=== PATIENT | male | born 1990 | race Caucasian/White ===

== ENCOUNTER 2021-01-22 13:07 | Inpatient (IN) | payer MEDICAID, SELFPAY ==
[~2021-01-22] VITALS: Ht 170.2 cm; Wt 47.6 kg
[2021-01-22 13:07] VITALS: BP_SYST 114
--- NOTE | 2021-01-22 13:24 | NUR ---
DR CARLTON IN TO ASSESS
--- NOTE | 2021-01-22 13:29 | NUR ---
BIB EMT FROM [facility] FOR TACHYCARDIA . 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 TRACH BLOW BY AT 2 LITERS. DIAPHORETIC, DIAPER.
[2021-01-22] MEDS ORDERED: PIPERACILLIN/TAZO 3.375 GM in NS 50 ML IV ONE (13:30)
[2021-01-22] MEDS ORDERED: IBUPROFEN 800 MG TABLET PO ONE (13:30)
[2021-01-22] MEDS ORDERED: NACL 0.9% 1,000 ML IV ONE ×2 (13:30→14:45)
--- NOTE | 2021-01-22 14:00 | NUR ---
ER at bedside examining patient.
[2021-01-22 14:04] LABS: BASOPHILS # (AUTO) 0.1 K/uL (0.0-0.2); BASOPHILS % (AUTO) 0.2 % (0.0-2.0); MONOCYTES # (AUTO) 1.6 K/uL (0.0-1.0); MONOCYTES % (AUTO) 3.6 % (1.7-9.3)
[2021-01-22] MEDS ORDERED: PIPERACILLIN/TAZOBACTAM 3.375 GM/VIAL (ZOSYN) IV ONE ×2 (14:05→23:56)
[2021-01-22 14:10] LABS: HEMATOCRIT 41.9 % (36-54); HEMOGLOBIN 14.1 g/dL (14.0-18.0); LYMPHOCYTES # (AUTO) 0.9 K/uL (1.0-5.5); LYMPHOCYTES % (AUTO) 2.1 % (20.5-51.5); MEAN CORPUSCULAR HEMOGLOBIN 31 pg (27-31); MEAN CORPUSCULAR HGB CONC 34 % (32-36); MEAN CORPUSCULAR VOLUME 91 fL (79.0-98.0); NEUTROPHILS # (AUTO) 41.5 K/uL (1.8-7.7); PLATELET COUNT (AUTO) 653 K/uL (130-430); RED BLOOD CELL COUNT(AUTO) 4.59 MIL/uL (4.2-6.2); RED CELL DISTRIBUTION WIDTH 17.1 % (9.0-15.0)
--- NOTE | 2021-01-22 14:17 | NUR ---
LABS AND CXR COMPLETED. UA OBTAINED, TOLERATED WELL. ST ON MONITOR NORMOTENSIVE
[2021-01-22 14:18] LABS: CALCIUM 8.7 mg/dL (8.4-11.0); CREATININE 0.52 mg/dL (0.55-1.30); POTASSIUM 4.3 mmol/L (3.5-5.1)
[2021-01-22 14:25] LABS: INR 1.5 (0.80-1.20); PROTHROMBIN TIME 15.4 SECS (9.5-12.5)
[2021-01-22 14:31] LABS: WHITE BLOOD COUNT (AUTO) 44.1 K/uL (4.8-10.8)
[2021-01-22 14:32] LABS: ALBUMIN 2.2 g/dL (3.4-4.8)
[2021-01-22] MEDS ORDERED: VANCOMYCIN HCL 1,000 MG in NS 250 ML IV ONE (14:45)
[2021-01-22 14:58] LABS: BILIRUBIN,URINE 1+ (NEGATIVE); BLOOD, URINE 3+ (NEGATIVE); CLARITY/URINE CLEAR (CLEAR); COLOR,URINE YELLOW (YELLOW); GLUCOSE,URINE NEGATIVE (NEGATIVE); KETONES,URINE TRACE (NEGATIVE); LEUKOCYTE ESTERASE ,URINE NEGATIVE (NEGATIVE); NITRITE, URINE NEGATIVE (NEGATIVE); PH,URINE 5.5 (5.0-8.0); PROTEIN URINE TRACE (NEGATIVE)
[2021-01-22] MEDS ORDERED: VANCOMYCIN HCL 1000 MG/VIAL IV ONE (15:03)
--- NOTE | 2021-01-22 15:20 | NUR ---
CONSENT FOR CT WITH CONTRAST FROM RADHA TAI
[2021-01-22 15:24] LABS: BACTERIA,URINE None Seen /HPF (None Seen); RBC,URINE 20-50 /HPF (0-3); WBC,URINE 0-3 /HPF (0-3)
--- NOTE | 2021-01-22 15:48 | NUR ---
[facility]
[2021-01-22 15:57] LABS: NEUTROPHILS % (AUTO) 94.1 % (40.0-70.0)
--- NOTE | 2021-01-22 17:42 | NUR ---
REPOSITIONED FOR COMFORT, PT CALM, RESP UNLABORED,
[2021-01-22] MEDS ORDERED: LOVI30 SQ (18:06)
[2021-01-22] MEDS ORDERED: ASPI-1155 PO (18:06)
[2021-01-22] MEDS ORDERED: FER300L PO (18:06)
[2021-01-22] MEDS ORDERED: ZINC50TA69 PO (18:06)
[2021-01-22] MEDS ORDERED: BISA5TAB10 PO (18:06)
[2021-01-22] MEDS ORDERED: ALBU2.5V7 INH (18:06)
[2021-01-22] MEDS ORDERED: MULT-1089 PO (18:06)
[2021-01-22] MEDS ORDERED: ASCO500T20 PO (18:06)
[2021-01-22] MEDS ORDERED: ACETAMINOPHEN 650 MG/20.3 ML UDC PO ONE (18:45)
[2021-01-22] MEDS ORDERED: MORPHINE 4 MG INJ. 4 MG/ML VIAL IVP PRN (18:45)
[2021-01-22] MEDS ORDERED: LORazepam 2 MG/ML VIAL IVP PRN (18:45)
[2021-01-22] MEDS ORDERED: ALBUTEROL SULFATE 0.083% 2.5 MG/3 ML VIAL.NEB INH PRN (18:45)
[2021-01-22] MEDS ORDERED: MORPHINE 2 MG/ML INJ. SYRINGE IVP PRN (18:45)
[2021-01-22] MEDS ORDERED: IPRATROPIUM BROM 0.5 MG/2.5 ML VIAL.NEB (ATROVENT) INH PRN (18:45)
[2021-01-22 19:07] LABS: PHOSPHORUS 4.2 mg/dL (2.7-4.5)
--- NOTE | 2021-01-22 19:08 | NUR ---
LT LYING REPOSITIONED, MEDICATED WITH TYLENOL ORDERED
[2021-01-22] MEDS: PIPERACILLIN/TAZO 3.375/DEX-IS 50 ML IV SCH (20:47)
[2021-01-22] MEDS: NACL 0.9% 1,000 ML IV SCH (20:47)
--- NOTE | 2021-01-22 21:01 | NUR ---
Patient is going to telemetry room 122 A
--- NOTE | 2021-01-22 22:03 | NUR ---
ADMIT NOTE patient non verbal , with a Trach size 7 . Respirations Regular also unlabored on 02 3 LPM suction up right position with thick white sputum , tolerated MULTIPLE OPEN SKIN AREAS are noted New ORDERS OBTAINED FROM DR TONIO REYES procedures explained / .
[2021-01-22 23:54] VITALS: BP_SYST 115
[2021-01-23 00:25] VITALS: BP_SYST 121
[2021-01-23] MEDS: PIPERACILLIN/TAZO 3.375/DEX-IS 50 ML IV SCH ×4 (00:48→17:52)
--- NOTE | 2021-01-23 01:14 | NUR ---
Pictures & Measurements of wounds implemented , photos put in medical Record .
[2021-01-23 01:53] VITALS: BP_SYST 117
--- NOTE | 2021-01-23 04:00 | NUR ---
Called Dr. Escalera [facility] For consultation: Covid-19, pulmonary abscess
--- NOTE | 2021-01-23 07:07 | NUR ---
Nutrition Update Ceferino Scale 11 noted. Pt admitted for Pulmonary Abscess /COVID Diet: [facility] BMI: 16.5 kg/m2 RD to follow per nutrition care standards.
[2021-01-23 07:38] LABS: HEMATOCRIT 34.5 % (36-54); HEMOGLOBIN 11.3 g/dL (14.0-18.0); MEAN CORPUSCULAR HEMOGLOBIN 30 pg (27-31); MEAN CORPUSCULAR HGB CONC 33 % (32-36); MEAN CORPUSCULAR VOLUME 92 fL (79.0-98.0); PLATELET COUNT (AUTO) 496 K/uL (130-430); RED BLOOD CELL COUNT(AUTO) 3.73 MIL/uL (4.2-6.2); RED CELL DISTRIBUTION WIDTH 16.9 % (9.0-15.0)
--- NOTE | 2021-01-23 07:45 | NUR ---
NOTE DR KILPATRICK ON THE FLOOR - ASSESSMENT DONE AND ORDERS WRITTEN
[2021-01-23 08:00] VITALS: BP_SYST 117
[2021-01-23] MEDS ORDERED: VANCOMYCIN HCL 750 MG in NS 250 ML IV SCH (08:00)
[2021-01-23 08:05] LABS: CALCIUM 8.8 mg/dL (8.4-11.0); CREATININE 0.44 mg/dL (0.55-1.30); POTASSIUM 3.7 mmol/L (3.5-5.1)
--- NOTE | 2021-01-23 08:35 | NUR ---
NOTE DR HODGES (PUL) WAS ON THE FLOOR AND ASSESSED PT AND ORDERS WRITTEN.
[2021-01-23 08:57] LABS: WHITE BLOOD COUNT (AUTO) 44.1 K/uL (4.8-10.8)
[2021-01-23] MEDS: ASCORBIC ACID 500 MG TABLET PO SCH (09:45)
[2021-01-23] MEDS: DECADRON 4 MG TABLET PO SCH (09:45)
[2021-01-23] MEDS: CHOLECALCIFEROL (VITAMIN D3) 2,000 UNIT TABLET PO SCH (09:45)
--- NOTE | 2021-01-23 09:47 | NUR ---
Pee Garcia notified of (+) Covid [id number] requested PCR covid test. Notified RN to obtain PCR covid test for the patient
[2021-01-23] MEDS: ENOXAPARIN SODIUM 40 MG/0.4 ML SYRINGE SUBCUT SCH (09:48)
[2021-01-23] MEDS: VANCOMYCIN HCL 750 MG in NS 250 ML IV SCH ×2 (09:48→22:35)
[2021-01-23 10:04] LABS: C-REACTIVE PROTEIN QUANT 40.4 mg/dL (0-0.5)
--- NOTE | 2021-01-23 11:40 | NUR ---
NOTE DR DUVAL CALLED AND UPDATE ON PT'S STATUS GIVEN.
[2021-01-23 11:41] LABS: BAND % (MANUAL) 15 % (0-6); BASOPHILS % (MANUAL) 0 % (0-2); EOSINOPHILS % (MANUAL) 0 % (0-7); LYMPHOCYTES % (MANUAL) 4 % (20-46); MONOCYTES % (MANUAL) 4 % (0-11)
[2021-01-23 12:00] VITALS: BP_SYST 116
--- NOTE | 2021-01-23 12:30 | NUR ---
Note Covid - PCR specimen was drawn and sent to lab for processing at this time.
--- NOTE | 2021-01-23 14:15 | NUR ---
NOTE US THORACENTESIS WAS CANCELLED AND US CHEST WAS ORDERED BY DR HODGES.
[2021-01-23 16:29] VITALS: BP_SYST 114
--- NOTE | 2021-01-23 18:50 | NUR ---
Note Pt was checked on q1' and PRN all shift for needs and care. Pt's bed in low position and bed alarm on all shift. pt's trach intact and oxygenating pt well. Pt's IV in left forearm and right forearm intact and patent, IVF's infusing well all shift. [place]amilla catheter intact and draining. Pt maintained with safety and isolation precautions all shift. Call light within reach. Pt near nurses' station for close observation.
[2021-01-23] MEDS ORDERED: VANCOMYCIN HCL 750 MG/NS 250 ML IV SCH (19:02)
--- NOTE | 2021-01-23 19:20 | NUR ---
RECEIVED SBAR REPORT FROM OFF COMING RN FOR CONTINUITY OF CARE. PT LAYING IN BED WITH EYES CLOSED. PT HAS A CHRONIC TRACH WITH 4 L O2. PURIFICATION DIRECTOR IN PLACE, TACHYCARDIA. IVF INFUSING. HALEY CATHETER IN PLACE AND DRAINING TO GRAVITY.
[2021-01-23] MEDS: NACL 0.9% 1,000 ML IV SCH (19:30)
--- NOTE | 2021-01-23 20:15 | NUR ---
PT OPENS EYES TO PAINFUL STIMULI AND WITHDRAWS TO PAIN. PT HAS A TRACH WITH 4L O2. MAINTAINING O2 SATURATIONS ABOVE 90%. DRY NON-PRODUCTIVE COUGH OBSERVED. PROVIDED PO AND TRACH CARE, PT TOLERATED WELL. G-TUBE IN PLACE, CLAMPED. IVF INFUSING. HALEY CATHETER IN PLACE AND DRAINING TO GRAVITY. TURNED AND REPOSITIONED, TOLERATED WELL. BED LOCKED AND IN LOWEST POSITION. SAFETY PRECAUTIONS IN PLACE.
--- NOTE | 2021-01-24 00:30 | NUR ---
PT CONTINUES TO BE ON 4 L VIA TRACH. PT HAS EYES CLOSED, NO S/S OF DISTRESS NOTED. TURNED AND REPOSITIONED, TOLERATED WELL. SAFETY PRECAUTIONS IN PLACE.
[2021-01-24] MEDS: PIPERACILLIN/TAZO 3.375/DEX-IS 50 ML IV SCH ×4 (00:51→17:24)
[2021-01-24 01:23] VITALS: BP_SYST 120
[2021-01-24 07:03] LABS: HEMATOCRIT 34.5 % (36-54); HEMOGLOBIN 10.9 g/dL (14.0-18.0); LYMPHOCYTES # (AUTO) 0.8 K/uL (1.0-5.5); LYMPHOCYTES % (AUTO) 1.9 % (20.5-51.5); MEAN CORPUSCULAR HEMOGLOBIN 30 pg (27-31); MEAN CORPUSCULAR HGB CONC 32 % (32-36); MEAN CORPUSCULAR VOLUME 94 fL (79.0-98.0); MONOCYTES # (AUTO) 1.8 K/uL (0.0-1.0); NEUTROPHILS # (AUTO) 41.4 K/uL (1.8-7.7); NEUTROPHILS % (AUTO) 94.1 % (40.0-70.0); PLATELET COUNT (AUTO) 484 K/uL (130-430); RED BLOOD CELL COUNT(AUTO) 3.69 MIL/uL (4.2-6.2); RED CELL DISTRIBUTION WIDTH 16.9 % (9.0-15.0)
[2021-01-24 07:21] LABS: CALCIUM 8.8 mg/dL (8.4-11.0); CREATININE 0.39 mg/dL (0.55-1.30); POTASSIUM 3.2 mmol/L (3.5-5.1)
--- NOTE | 2021-01-24 07:27 | NUR ---
ENDORSED SBAR REPORT TO ONCOMING RN FOR CONTINUITY OF CARE.
[2021-01-24 08:39] LABS: ERYTHROCYTE SEDIMENTATION RATE 96 MM/HR (0-15)
[2021-01-24 09:00] VITALS: BP_SYST 150
--- NOTE | 2021-01-24 09:05 | NUR ---
CONSULTATION PAGED/CALLED Reason for Consultation: LUNG ABCESS Person Who was Notified: MISSY Consulting Physician: PAMELA GARZA Director Software Quality Assurance Specialty: Ordering Physician: FINESSE
[2021-01-24 09:26] LABS: C-REACTIVE PROTEIN QUANT 31.7 mg/dL (0-0.5)
[2021-01-24] MEDS: VANCOMYCIN HCL 750 MG in NS 250 ML IV SCH (09:52)
[2021-01-24] MEDS: ASCORBIC ACID 500 MG TABLET PO SCH (09:53)
[2021-01-24] MEDS: CHOLECALCIFEROL (VITAMIN D3) 2,000 UNIT TABLET PO SCH (09:53)
[2021-01-24] MEDS: DECADRON 4 MG TABLET PO SCH (09:53)
[2021-01-24] MEDS: ENOXAPARIN SODIUM 40 MG/0.4 ML SYRINGE SUBCUT SCH (09:54)
--- NOTE | 2021-01-24 10:11 | NUR ---
INFORMED US ROGE THAT PATIENT'S HEART RATE WAS 144 SHE WILL INFORM CARLIN HERNANDEZ
[2021-01-24 12:00] VITALS: BP_SYST 117
--- NOTE | 2021-01-24 14:49 | NUR ---
Note Pt's HR tends to go high when he has congestion above 100. Once pt suctioned - HR goes below [address] Campbell came to see pt at 09am - orders written. Calls (4) made to [employer] since 09am for GT feedings to be started. No answer. Received call from Komal - surgical corsetier at 1400, she will order GT feedings.
[2021-01-24 16:00] VITALS: BP_SYST 118
--- NOTE | 2021-01-24 17:10 | NUR ---
NOTE Komal (conference services director) called and recommended Glucerna 1.2 at 50cc/hr and water flush q6' 100cc. GT feeding to be brought to floor with dinner trays. Order was entered per Dr Campbell's request.
--- NOTE | 2021-01-24 17:45 | NUR ---
Dietitian Recommendations * Recommend Glucerna 1.2 at 50ml/hr (goal rate) , Free water flush: 100ml/Q6hrs via GT Provides: 1440kcal, /day, 72g protein/day, 966ml free water/day Meets: 86% of caloric needs and 116% of upper end of protein needs. Please refer to to Nutrition Assessment for details. CN,RD
--- NOTE | 2021-01-24 18:30 | NUR ---
PAGED PAGED DOCTOR MILTON FOR DOCTOR KAYLA
--- NOTE | 2021-01-24 18:40 | NUR ---
NOTE Dr Hal Parsons on the floor and after assessing pt called and spoke to Dr Sol. Pt was checked on q1' and PRN all shift for needs and care. Pt's bed in low position and bed alarm on. Pt near nurses station for close observation. Pt maintained with safety and isolation precautions all shift. Call light within reach.
[2021-01-24] MEDS: NACL 0.9% 1,000 ML IV SCH (18:45)
--- NOTE | 2021-01-24 19:30 | NUR ---
OPENING NOTE RECEIVED SBAR REPORT FROM DAY SHIFT RN FOR CONTINUITY OF CARE. PT LAYING IN BED WITH EYES CLOSED. PT HAS A CHRONIC TRACH WITH 6 L O2. GREENS OR GROUNDS SUPERINTENDENT IN PLACE. SAFETY AND ASPIRATION PRECAUTIONS ARE IN PLACE. IVF INFUSING. HALEY CATHETER IN PLACE AND DRAINING TO GRAVITY. WILL MONITOR.
--- NOTE | 2021-01-24 19:56 | NUR ---
PAGED DR. DUVAL TO REPORT CRITICAL LAB OF MRSA NARES POSITIVE
[2021-01-24 20:00] VITALS: BP_SYST 143
--- NOTE | 2021-01-24 20:30 | NUR ---
INCREASED O2 VIA TRACH TO 10 L. PT SUCTIONED AND IS SATTING AT 94% AT THIS TIME. WILL MONITOR.
[2021-01-24] MEDS: LINEZOLID 300 ML IV SCH (22:27)
[2021-01-25] MEDS: PIPERACILLIN/TAZO 3.375/DEX-IS 50 ML IV SCH ×5 (02:29→23:34)
[2021-01-25 02:34] VITALS: BP_SYST 150
--- NOTE | 2021-01-25 06:00 | NUR ---
DECREASED O2 TO 8L VIA TRACH. PT TOLERATING WELL AND IS SATTING AT 96%. PT SUCTIONED. WILL MONITOR.
--- NOTE | 2021-01-25 07:07 | NUR ---
CLOSING NOTE PT LAYING IN BED WITH EYES CLOSED. PT HAS A CHRONIC TRACH WITH 8 L O2. PROTECTIVE SERVICE SPECIALIST IN PLACE. SAFETY AND ASPIRATION PRECAUTIONS ARE IN PLACE. IVF INFUSING. HALEY CATHETER IN PLACE AND DRAINING TO GRAVITY. WILL MONITOR UNTIL CARE IS ENDORSED TO DAY SHIFT RN.
[2021-01-25 08:00] VITALS: BP_SYST 128
[2021-01-25] MEDS ORDERED: MUPIROCIN 1 GM OIN.PF.APP NS SCH (09:00)
[2021-01-25] MEDS: LINEZOLID 300 ML IV SCH ×2 (09:13→20:07)
[2021-01-25] MEDS: DECADRON 4 MG TABLET PO SCH (09:13)
[2021-01-25] MEDS: CHOLECALCIFEROL (VITAMIN D3) 2,000 UNIT TABLET PO SCH (09:13)
[2021-01-25] MEDS: ASCORBIC ACID 500 MG TABLET PO SCH (09:13)
[2021-01-25] MEDS: MUPIROCIN 2% TOPICAL OINTMENT 22 GM TP SCH ×2 (09:14→20:07)
[2021-01-25] MEDS: ENOXAPARIN SODIUM 40 MG/0.4 ML SYRINGE SUBCUT SCH (09:14)
[2021-01-25 09:20] LABS: BASOPHILS # (AUTO) 0.1 K/uL (0.0-0.2); BASOPHILS % (AUTO) 0.3 % (0.0-2.0); HEMATOCRIT 30.9 % (36-54); LYMPHOCYTES # (AUTO) 0.8 K/uL (1.0-5.5); LYMPHOCYTES % (AUTO) 2.4 % (20.5-51.5); MEAN CORPUSCULAR HEMOGLOBIN 30 pg (27-31); MEAN CORPUSCULAR HGB CONC 32 % (32-36); MEAN CORPUSCULAR VOLUME 92 fL (79.0-98.0); MONOCYTES # (AUTO) 1.1 K/uL (0.0-1.0); MONOCYTES % (AUTO) 3.1 % (1.7-9.3); NEUTROPHILS # (AUTO) 33.8 K/uL (1.8-7.7); NEUTROPHILS % (AUTO) 94.2 % (40.0-70.0); PLATELET COUNT (AUTO) 420 K/uL (130-430); RED BLOOD CELL COUNT(AUTO) 3.35 MIL/uL (4.2-6.2); RED CELL DISTRIBUTION WIDTH 16.7 % (9.0-15.0)
[2021-01-25 09:26] LABS: CALCIUM 8.3 mg/dL (8.4-11.0); CREATININE 0.4 mg/dL (0.55-1.30); POTASSIUM 3.1 mmol/L (3.5-5.1)
[2021-01-25 09:58] LABS: C-REACTIVE PROTEIN QUANT 19.6 mg/dL (0-0.5)
[2021-01-25 10:10] LABS: WHITE BLOOD COUNT (AUTO) 35.9 K/uL (4.8-10.8)
[2021-01-25 10:12] LABS: ERYTHROCYTE SEDIMENTATION RATE 106 MM/HR (0-15)
[2021-01-25] MEDS ORDERED: LIDOCAINE 1%, 20 ML MDV 20 ML ONE (10:35)
[2021-01-25] MEDS ORDERED: MIDAZOLAM HCL 5 MG/5 ML VIAL ONE (10:55)
[2021-01-25 12:00] VITALS: BP_SYST 135
[2021-01-25 16:00] VITALS: BP_SYST 130
[2021-01-25] MEDS: NACL 0.9% 1,000 ML IV SCH (18:52)
[2021-01-25 20:00] VITALS: BP_SYST 125
--- NOTE | 2021-01-25 22:00 | NUR ---
ROUNDING NOTES Patient resting in bed - no s/s pain or distress noted. Respirations even and unlabored - head of bed elevated. IV site patent - no s/s redness, infection, or infiltration. Bed locked and in lowest position. Call light within reach - bed alarm on.
[2021-01-26 00:57] VITALS: BP_SYST 128
[2021-01-26] MEDS: PIPERACILLIN/TAZO 3.375/DEX-IS 50 ML IV SCH ×3 (05:15→17:55)
[2021-01-26 06:40] LABS: BASOPHILS % (AUTO) 0.2 % (0.0-2.0); HEMATOCRIT 30.9 % (36-54); HEMOGLOBIN 10.1 g/dL (14.0-18.0); LYMPHOCYTES # (AUTO) 0.8 K/uL (1.0-5.5); MEAN CORPUSCULAR HEMOGLOBIN 30 pg (27-31); MEAN CORPUSCULAR HGB CONC 33 % (32-36); MEAN CORPUSCULAR VOLUME 92 fL (79.0-98.0); MONOCYTES # (AUTO) 0.8 K/uL (0.0-1.0); MONOCYTES % (AUTO) 3.1 % (1.7-9.3); NEUTROPHILS # (AUTO) 24.5 K/uL (1.8-7.7); PLATELET COUNT (AUTO) 438 K/uL (130-430); RED BLOOD CELL COUNT(AUTO) 3.37 MIL/uL (4.2-6.2); RED CELL DISTRIBUTION WIDTH 16.5 % (9.0-15.0); WHITE BLOOD COUNT (AUTO) 26.2 K/uL (4.8-10.8)
[2021-01-26 07:20] LABS: CALCIUM 8.5 mg/dL (8.4-11.0); CREATININE 0.33 mg/dL (0.55-1.30)
[2021-01-26 08:02] LABS: NEUTROPHILS % (AUTO) 93.7 % (40.0-70.0)
[2021-01-26 08:42] LABS: C-REACTIVE PROTEIN QUANT 14.5 mg/dL (0-0.5)
[2021-01-26 10:58] LABS: ERYTHROCYTE SEDIMENTATION RATE 104 MM/HR (0-15)
[2021-01-26 11:26] VITALS: BP_SYST 137
[2021-01-26] MEDS: ASCORBIC ACID 500 MG TABLET PO SCH (12:41)
[2021-01-26] MEDS: CHOLECALCIFEROL (VITAMIN D3) 2,000 UNIT TABLET PO SCH (12:41)
[2021-01-26] MEDS: ENOXAPARIN SODIUM 40 MG/0.4 ML SYRINGE SUBCUT SCH (12:42)
[2021-01-26] MEDS: MUPIROCIN 2% TOPICAL OINTMENT 22 GM TP SCH ×2 (12:45→20:10)
[2021-01-26] MEDS: LINEZOLID 300 ML IV SCH ×2 (13:40→20:10)
[2021-01-26 15:36] VITALS: BP_SYST 125
[2021-01-26] MEDS: NACL 0.9% 1,000 ML IV SCH (17:55)
[2021-01-26 20:00] VITALS: BP_SYST 123
[2021-01-27 00:06] VITALS: BP_SYST 118
[2021-01-27] MEDS: PIPERACILLIN/TAZO 3.375/DEX-IS 50 ML IV SCH ×4 (01:08→17:06)
--- NOTE | 2021-01-27 06:36 | NUR ---
OPENING NOTE RECEIVED SBAR REPORT FROM DAY SHIFT RN FOR CONTINUITY OF CARE. PT LAYING IN BED WITH EYES CLOSED. PT HAS A CHRONIC TRACH WITH 4 L O2, SATTING WELL. CHILD CARE SUPERVISOR IN PLACE. SAFETY AND ASPIRATION PRECAUTIONS ARE IN PLACE. IVF INFUSING. HALEY CATHETER IN PLACE AND DRAINING TO GRAVITY. CHEST TUBE IN PLACE AND TO SUCTION. WILL MONITOR. Addendum: 01/27/21 at 0659 by Jackie Cai RN TONY: TIME WAS 1929, DATE WAS 01/26/21
--- NOTE | 2021-01-27 06:37 | NUR ---
CLOSING NOTE PT LAYING IN BED WITH EYES CLOSED. PT HAS A CHRONIC TRACH WITH 4 L O2, SATTING WELL. FOOD COUNTER ATTENDANT IN PLACE. SAFETY AND ASPIRATION PRECAUTIONS ARE IN PLACE. IVF INFUSING. HALEY CATHETER IN PLACE AND DRAINING TO GRAVITY. CHEST TUBE IN PLACE AND TO SUCTION. ALL NEEDS MET. WILL MONITOR UNTIL PT CARE IS ENDORSED TO DAY SHIFT RN.
[2021-01-27 07:01] LABS: EOSINOPHILS % (AUTO) 0.2 % (0.0-4.0); HEMOGLOBIN 9.8 g/dL (14.0-18.0); LYMPHOCYTES % (AUTO) 5.1 % (20.5-51.5); MEAN CORPUSCULAR HEMOGLOBIN 30 pg (27-31); MEAN CORPUSCULAR HGB CONC 33 % (32-36); MEAN CORPUSCULAR VOLUME 93 fL (79.0-98.0); MONOCYTES # (AUTO) 0.7 K/uL (0.0-1.0); MONOCYTES % (AUTO) 3.4 % (1.7-9.3); NEUTROPHILS # (AUTO) 18.1 K/uL (1.8-7.7); NEUTROPHILS % (AUTO) 91.3 % (40.0-70.0); PLATELET COUNT (AUTO) 416 K/uL (130-430); RED BLOOD CELL COUNT(AUTO) 3.24 MIL/uL (4.2-6.2); RED CELL DISTRIBUTION WIDTH 17.1 % (9.0-15.0); WHITE BLOOD COUNT (AUTO) 19.9 K/uL (4.8-10.8)
[2021-01-27 07:48] LABS: CALCIUM 8.3 mg/dL (8.4-11.0); CREATININE 0.31 mg/dL (0.55-1.30); POTASSIUM 3.4 mmol/L (3.5-5.1)
[2021-01-27 08:00] VITALS: BP_SYST 128; BP_SYST 156
[2021-01-27] MEDS ORDERED: ALTEPLASE 2 MG VIAL MC ONE (08:30)
--- NOTE | 2021-01-27 09:00 | NUR ---
DR HODGES WAS HERE AND SEEN PT. INJECT CATHFLOW TO PT'S CHEST TUBE AND ORDERED TO UNCLAMP IT AFTER 2 HOURS.
[2021-01-27] MEDS: CHOLECALCIFEROL (VITAMIN D3) 2,000 UNIT TABLET PO SCH (09:26)
[2021-01-27] MEDS: ASCORBIC ACID 500 MG TABLET PO SCH (09:26)
[2021-01-27] MEDS: LINEZOLID 300 ML IV SCH ×2 (09:27→21:50)
[2021-01-27] MEDS: ENOXAPARIN SODIUM 40 MG/0.4 ML SYRINGE SUBCUT SCH (09:28)
[2021-01-27] MEDS: MUPIROCIN 2% TOPICAL OINTMENT 22 GM TP SCH ×2 (09:35→21:53)
[2021-01-27 09:37] LABS: C-REACTIVE PROTEIN QUANT 16.3 mg/dL (0-0.5)
[2021-01-27 10:31] LABS: ERYTHROCYTE SEDIMENTATION RATE 110 MM/HR (0-15)
--- NOTE | 2021-01-27 11:00 | NUR ---
UNCLAMED CHEST TUBE ORDERED BY DR HODGES. Addendum: 01/27/21 at 1822 by Raffaele Youngblood RN CORRECTION "UNCLAMPED"
[2021-01-27 11:26] VITALS: BP_SYST 117
[2021-01-27 15:35] VITALS: BP_SYST 120
--- NOTE | 2021-01-27 15:45 | NUR ---
WOUND EVALUATION: Late note for 1544 secondary to patient care. Wound Consult received from Dr. Duran. Thank you, Dr. Duran, for the consult. Patient received in a [place] Bed with a mattress, awake, alert, and oriented. Patient is unable to turn independently. Ceferino Score is an 11. Past Medical History: Chronic Respiratory Failure, Dysphagia, COVID Pneumonia, Sepsis, suicide attempt, Traumatic Brain Injury, tube feeding, history of lung abscess. Admitted with Pneumonia. Recent Labs: WBC 19.9, RBC 3.24, hemoglobin 9.8, hematocrit 30.0, ESR 110, potassium 3.4, BUN 7, creatinine 0.31, GFR 363, glucose 142, calcium 8.3, C-reactive protein 16.3, D-dimer 2760, albumin 2.2. Microbiology: Blood culture results x2 in progress. Urine culture results negative. MRSA screen results positive. Intrinsic factors that delay wound healing: Chronic Respiratory Failure, Dysphagia, COVID Pneumonia, Sepsis, Hypoalbuminemia. Extrinsic factors that delay wound healing: Immobility. Wound Assessment: 1. Right Sacral area: Three small areas of dark purple ecchymosis in a near vertical linear fashion. No odor, no drainage. 2. Right Upper Sacral area: Small scab, wound was present on admission. No odor, no drainage. 3. Right Lower Sacral area: Small scab, wound was present on admission. No odor, no drainage. 4. Left Sacral area: Wound, present on admission. Site now has 100% pink scar tissue. 5. Left Buttock area: Wound, present on admission. Site now has 100% pink scar tissue. Recommend: Cleanse involved areas with mild soap and water. Gently pat dry. Apply Hydraguard barrier cream to involved areas. Cover sites with Sacral foam dressing. Perform site care daily, and as needed for dressing soiling or dislodgment. 6. Right Anterior Lateral Shoulder: Wound of unknown origin, present on admission. Wound bed has 5% dark discoloration, 10% pink tissue, 5% yellow tissue, 80% red tissue. No odor, no drainage. Periwound intact. Wound measures 5.0 cm x 4.0 cm. Recommend: Cleanse wound with normal saline. Apply moisture barrier cream to periwound. Apply Venelex ointment to wound bed. Cover with foam dressing. Perform wound care daily, and as needed for dressing soiling or dislodgment. 7. Right Lateral Head: Wound and unknown origin, present on admission. Wound bed has 100% red tissue. No odor, no drainage. Dry, stable. Recommend: Cleanse involved area with normal saline. Pat dry. Cover site with foam dressing. Perform site care daily, and as needed for dressing soiling or dislodgment. 8. Anterior/Medial Bridge of Nose: Wound, present on admission. Wound has 100% black scab. No odor, no drainage. Periwound intact. Dry, stable. Recommend: No dressing needed. Continue to monitor site every shift. Recommend reposition patient side to side only every 2 hours with pillow support. Elevate, off-load and float bilateral heels with pillows. Offload pressure areas with pillows for pressure re-distribution. Perform skin care and monitor skin integrity Q shift. Use moisture barrier cream on moisture susceptible areas QID and PRN for soiling. Maintain patient on a low air-loss mattress. Also recommend: Place pillow underneath patient's sacral-coccygeal area in a horizontal fashion. Reposition patient side to side only every 2 hours by placing 1 pillow underneath left side for 2 hours, then switching pillow to underneath right side every 2 hours Off-load pressure areas with pillows for pressure re-distribution. Offload, elevate and float bilateral heels with one pillow lengthwise under each extremity at all times (ensure that heels float). Perform skin care and monitor skin integrity Q shift. Use moisture barrier cream on buttocks and other moisture susceptible areas QID and as needed for soiling. Maintain patient on a low air-loss mattress.
--- NOTE | 2021-01-27 18:22 | NUR ---
PT HAS BEEN STABLE THE WHOLE SHIFT, TURNED AND REPOSITIONED Q2 HOURS, PT SUCTION VIA TRACH PRN. WOUND CARE NURSE SAW PT. IV ACCESS INTACT AND PATENT. DR CHET AVILA'D ISOLATION. WILL ENDORSE TO NIGHT NURSE.
--- NOTE | 2021-01-27 19:30 | NUR ---
OPENING NOTE PATIENT IS NON VERBAL RESPONDS TO TACTILE STIMULE OPENS EYES. PATIENT IS ON A TRACH T BAR NO SIGNS OF PAIN OR DISTRESS. GTUBE PATENT AND INTACT ON ABDOMEN. IV SITE PATENT AND INTACT LFA AND RW. PATIENT IS ON ISOLATION FOR MRSA OF NARES. BREATHING WITH OXYGEN VIA N/C AT 4 LPM. HALEY CATHETER PATENT AND INTACT SECURED TO LEG. CHEST TUBE PATENT AND INTACT. BED IS LOW AND CALL LIGHTS IN REACH.
[2021-01-27 20:00] VITALS: BP_SYST 158
[2021-01-27] MEDS: NACL 0.9% 1,000 ML IV SCH (21:52)
[2021-01-28] VITALS: BP_SYST 117
--- NOTE | 2021-01-28 | NUR ---
PATIENT IS ASLEEP COMFORTABLE NO SIGNS OF PAIN OR DISTRESS. BED IS LOW AND CALL LIGHT IS WITHIN REACH.
[2021-01-28] MEDS: PIPERACILLIN/TAZO 3.375/DEX-IS 50 ML IV SCH ×4 (01:06→18:14)
--- NOTE | 2021-01-28 04:00 | NUR ---
PATIENT IS ASLEEP COMFORTABLE NO SIGNS OF PAIN OR DISTRESS. BED IS LOW AND CALL LIGHT IN REACH.
--- NOTE | 2021-01-28 06:21 | NUR ---
CLOSING NOTE PATIENT IS COMFORTABLE NO SIGNS OF DISTRESS OR PAIN. TRACH PATENT AND INTACT. CHEST TUBE PATENT AND INTACT. G-TUBE PATENT AND INTACT. HALEY PATENT AND INTACT. BED IS LOW AND CALL LIGHT IS IN REACH.
[2021-01-28 08:00] VITALS: BP_SYST 122
[2021-01-28 09:41] LABS: BASOPHILS % (AUTO) 0.2 % (0.0-2.0); EOSINOPHILS # (AUTO) 0.1 K/uL (0.0-0.4); EOSINOPHILS % (AUTO) 0.7 % (0.0-4.0); HEMOGLOBIN 10.7 g/dL (14.0-18.0); LYMPHOCYTES % (AUTO) 5.1 % (20.5-51.5); MEAN CORPUSCULAR HEMOGLOBIN 30 pg (27-31); MEAN CORPUSCULAR HGB CONC 32 % (32-36); MEAN CORPUSCULAR VOLUME 93 fL (79.0-98.0); MONOCYTES # (AUTO) 0.9 K/uL (0.0-1.0); MONOCYTES % (AUTO) 4.4 % (1.7-9.3); NEUTROPHILS # (AUTO) 18.4 K/uL (1.8-7.7); NEUTROPHILS % (AUTO) 89.6 % (40.0-70.0); PLATELET COUNT (AUTO) 482 K/uL (130-430); RED BLOOD CELL COUNT(AUTO) 3.55 MIL/uL (4.2-6.2); RED CELL DISTRIBUTION WIDTH 17.1 % (9.0-15.0); WHITE BLOOD COUNT (AUTO) 20.5 K/uL (4.8-10.8)
[2021-01-28 10:01] LABS: CALCIUM 8.3 mg/dL (8.4-11.0); CREATININE 0.39 mg/dL (0.55-1.30)
[2021-01-28] MEDS: LINEZOLID 300 ML IV SCH ×2 (10:01→21:49)
[2021-01-28] MEDS: CHOLECALCIFEROL (VITAMIN D3) 2,000 UNIT TABLET PO SCH (10:02)
[2021-01-28] MEDS: ASCORBIC ACID 500 MG TABLET PO SCH (10:02)
[2021-01-28] MEDS: BALSAM PERU/CASTOR OIL 60 GM OINT...G. TP SCH (10:03)
[2021-01-28] MEDS: ENOXAPARIN SODIUM 40 MG/0.4 ML SYRINGE SUBCUT SCH (10:03)
[2021-01-28] MEDS: MUPIROCIN 2% TOPICAL OINTMENT 22 GM TP SCH ×2 (10:03→22:20)
[2021-01-28 10:31] LABS: C-REACTIVE PROTEIN QUANT 11.3 mg/dL (0-0.5)
[2021-01-28 10:45] LABS: ERYTHROCYTE SEDIMENTATION RATE 91 MM/HR (0-15)
[2021-01-28 12:00] VITALS: BP_SYST 118
[2021-01-28] MEDS ORDERED: ALTEPLASE 2 MG VIAL MC ONE (13:30)
[2021-01-28 14:44] VITALS: BP_SYST 109
[2021-01-28 16:00] VITALS: BP_SYST 112
--- NOTE | 2021-01-28 16:00 | NUR ---
pt rec'd ativase via chest tube by physician and chest tube was clamped and unclamped within two hours as ordered and 30ml was sent to lab for culture per physician no acute distress noted pt maverick procedure well
[2021-01-28 17:27] LABS: APPEARANCE,SPUN,BODY FLUID HAZY (CLEAR); BF APPEARANCE UNSPUN BLOODY (CLEAR); BODY FLUID COLOR DARK YELLOW (LT YELLOW); BODY FLUID SOURCE/ TYPE OTHER
[2021-01-28 17:28] LABS: BODY FLUID TOTAL VOLUME 20 mL
[2021-01-28 17:29] LABS: LYMPHOCYTES, BODY FLUID 6 %; NEUTROPHIL, BODY FLUID 94 %; RBC, BODY FLUID 6775 /uL; WBC, BODY FLUID 21450 /uL
[2021-01-28 17:32] LABS: SOURCE/TYPE ,BODY FLUID OTHER
[2021-01-28] MEDS: NACL 0.9% 1,000 ML IV SCH (18:15)
--- NOTE | 2021-01-28 19:20 | NUR ---
CHANGE OF SHIFT; endorsed by day shift. pt. with trach to T bar @ 4 liters O2. pt. unable to use call light. on contact isolation for MRSA nares.
--- NOTE | 2021-01-28 20:05 | NUR ---
NOTES: pt. eyes closed. on trach via T bar. IVF infusing via left forearm, with splint on left arm/hand. foot drop on both feet. on crdiac monitor and shows sinu rhythm. g tube feed with Glucerna. chest tube on left side more toward the back with serous sanguineous drainage. O2 sat 100%. both legs elevated and both heels, on air mattress. noted bruising on rt. hip. pt. skinny.
[2021-01-28 21:00] VITALS: BP_SYST 125
--- NOTE | 2021-01-28 22:30 | NUR ---
NOTES: pt. medication given. suctioned orally and via trach. HOB elevated.
[2021-01-29 00:30] VITALS: BP_SYST 115
--- NOTE | 2021-01-29 00:30 | NUR ---
NOTES: repositioned. VS rechecked. loyd cath to osd.
[2021-01-29] MEDS: PIPERACILLIN/TAZO 3.375/DEX-IS 50 ML IV SCH ×4 (00:53→17:11)
--- NOTE | 2021-01-29 03:44 | NUR ---
NOTES: complete am care done. had a moderate amt. of pasty greenish brown stool/martha care done. sacral wound/buttocks dressing changed, cleanse with soap and water/pat dry and foam dressing applied. turn to sides. repositioned.pt.eyes open non verbal. observed contact isolation for MRSA nares.
[2021-01-29] MEDS: NACL 0.9% 1,000 ML IV SCH (05:27)
--- NOTE | 2021-01-29 05:30 | NUR ---
NOTES; suctioned orally and via trach, oral care done. IVF continuous with IV antibiotic. H2O flushes via g tube.
[2021-01-29 06:26] LABS: BASOPHILS % (AUTO) 0.1 % (0.0-2.0); EOSINOPHILS # (AUTO) 0.2 K/uL (0.0-0.4); EOSINOPHILS % (AUTO) 1.3 % (0.0-4.0); HEMATOCRIT 34.1 % (36-54); LYMPHOCYTES # (AUTO) 1.2 K/uL (1.0-5.5); LYMPHOCYTES % (AUTO) 7.4 % (20.5-51.5); MEAN CORPUSCULAR HEMOGLOBIN 30 pg (27-31); MEAN CORPUSCULAR HGB CONC 32 % (32-36); MEAN CORPUSCULAR VOLUME 92 fL (79.0-98.0); MONOCYTES % (AUTO) 5.8 % (1.7-9.3); NEUTROPHILS # (AUTO) 14.1 K/uL (1.8-7.7); NEUTROPHILS % (AUTO) 85.4 % (40.0-70.0); PLATELET COUNT (AUTO) 532 K/uL (130-430); RED CELL DISTRIBUTION WIDTH 17.1 % (9.0-15.0); WHITE BLOOD COUNT (AUTO) 16.5 K/uL (4.8-10.8)
--- NOTE | 2021-01-29 06:30 | NUR ---
CLOSING NOTES; pt. dad called and updated on pt. status.suctioned via trach and orally. g tube feeding continuous. site clean. loyd intact. IVF continuous. observed contact isolation for MRSA Nares. for further care and assistance. will endorse to incoming shift.
[2021-01-29 06:45] LABS: CALCIUM 8.3 mg/dL (8.4-11.0); CREATININE 0.29 mg/dL (0.55-1.30)
--- NOTE | 2021-01-29 06:57 | NUR ---
NOTES: changed atrium drainage at 20 cm suction. checked for patency. chest x ray was done earlier at bedside.
--- NOTE | 2021-01-29 07:30 | NUR ---
Opening Notes Patient is laying in bed, alert and oriented x1. Flat affect, obtunded. Arousable to deep stimuli/shaking. Pt remains on TBAR @ 4 LPM, tolerating well. Suction as needed. Mild SOB at rest. Suction as needed. Chest tube noted on left lower posterior, chest tube bubbling and draining, serous fluid noted. IV site on left FA 20 gauge intact at this time. NS @ 40 cc/hr, infusing well. GTUBE site intact, dressing clean and dry. Glucerna 1.2 @ 50 cc/hr, infusing well at this time. HOB @ 30 degrees. FC draining by gravity, shraddha colored urine noted. Pt remains on bedrest. Repositioned with pillows. All needs met at this time. Safety and fall precautions in place. Bed in lowest position, alarm on, locked. Will continue to monitor.
[2021-01-29 08:00] VITALS: BP_SYST 116
[2021-01-29] MEDS: LINEZOLID 300 ML IV SCH ×2 (08:16→20:32)
[2021-01-29] MEDS: ASCORBIC ACID 500 MG TABLET PO SCH (08:17)
[2021-01-29] MEDS: CHOLECALCIFEROL (VITAMIN D3) 2,000 UNIT TABLET PO SCH (08:17)
[2021-01-29] MEDS: MUPIROCIN 2% TOPICAL OINTMENT 22 GM TP SCH ×2 (08:20→20:33)
[2021-01-29] MEDS: BALSAM PERU/CASTOR OIL 60 GM OINT...G. TP SCH (08:20)
[2021-01-29] MEDS: ENOXAPARIN SODIUM 40 MG/0.4 ML SYRINGE SUBCUT SCH (08:34)
--- NOTE | 2021-01-29 10:00 | NUR ---
Notes Patient was repositioned in bed with pillows. Pt remains on TBAR @ 4 LPM, tolerating well at this time. Mild SOB while at rest. Suctioned trach x1, thick phlegm noted. Pt shows no signs of pain at this time. Will continue to monitor.
[2021-01-29 10:23] LABS: ERYTHROCYTE SEDIMENTATION RATE 87 MM/HR (0-15)
--- NOTE | 2021-01-29 10:30 | NUR ---
Nutrition F/U RD reviewed pt's current EMR record including diet Hx, physician notes, nursing notes, pertinent labs/meds/procedures, care trends, and care activity. Admission Dx: Pulmonary Abscess/COVID PMH: chronic respiratory failure. s/p feeding tube. Pt was also found w/ sepsis secondary to left lung abscess, COVID-19 infection with aspiration pneumonia, hyponatremia, moderate malnutrition, chronic respiratory failure, dysphagia, traumatic brain injury. SARS-CoV-2 Ag (Rapid) Positive 01/22 & (PCR) Negative 01/23 Current Diet Order/Nutrition Support: Glucerna 1.2 at 50 ml/hr, Free Water Flush: 100 6' via GT x3 days Subjective Info: RD rounded to unit yesterday, 01/28 and spoke w/ pt's primary RN. She reported that pt is tolerating TF. Pt is under isolation precautions -- RD bedside visit was deferred. Per EMR review today, TF Rate: 50 ml 01/28; GRV: 0 ml 01/28; TF Intakes: 500 ml 01/29; abd is soft and non-distended w/ active bowel sounds 01/28; last BM x2 01/26; Ceferino scale: 11 -- per Panman note 01/27 -- multiple wounds were noted -- please refer to wound note for details. Pertinent Medications: VIT C, VIT D, lovenox Pertinent Labs: WBC 16.5 H, Na 137 WNL, CRE 0.29 L, BG 136 H, BUN 6 L Height (Feet) 5 feet Height (Inches) 7.00 inches Weight (Pounds) 105 pounds Weight (Calculated Kilograms) 47.458308 kilograms Patient Weight 47.627 kg Body Mass Index 16.44 kg/m2 %IBW 71 [place]/Adjusted Body Weight 148 Recent Weight Change No Weight Status Underweight NEW Estimated Energy Expenditure (kcals/day) 2407-8840 kcal/day (30-35 kcal/kg CBW d/t malnutrition, wound healing) NEW Estimated Protein Required (g/day) 58-72 gm/day (1.2-1.5 gm/kg CBW d/t malnutrition, wound healing) Estimated Fluid Required (l/day) 1.4-1.7 ml/day (1ml/kcal/day for maintenance) Problem/Etiology/Signs/Symptoms *MODIFIED* Increase calories and Protein intake R/T Moderate protein calorie malnutrition and dysphagia AEB BMI: 16.5kg/m2, multiple wounds, and is on enteral feeding . *ongoing Expected Outcomes/Goals - Monitor advancement of tube feeding rate and tolerance w/ goal of pt meeting at least 80% of estimated nutritional needs, labs trending WNL, normal GI function, and skin integrity/wt maintenance Dietitian Recommendations * Recommend Glucerna 1.2 at 50 ml/hr (goal rate), Lucho BID, Free water flush: 100ml/Q6hrs via GT Provides: 1600 kcal/day, 72 gm protein/day, 1366 ml free water/day Meets: 95% of upper end of estimated caloric needs and 100% of upper end of estimated protein needs Follow Up High Risk: F/U in 2-3 days
--- NOTE | 2021-01-29 10:39 | NUR ---
Dietitian Recommendations * Recommend Glucerna 1.2 at 50 ml/hr (goal rate), Lucho BID, Free water flush: 100ml/Q6hrs via GT Provides: 1600 kcal/day, 72 gm protein/day, 1366 ml free water/day Meets: 95% of upper end of estimated caloric needs and 100% of upper end of estimated protein needs LP, RD Please refer to Nutrition F/U for details.
[2021-01-29 11:23] LABS: C-REACTIVE PROTEIN QUANT 9.8 mg/dL (0-0.5)
[2021-01-29 12:00] VITALS: BP_SYST 116
--- NOTE | 2021-01-29 12:00 | NUR ---
Patient is laying in bed, resting at this time. Pt remains on TBAR @ 4 LPM, tolerating well. Suctioned patient x2, noted with thick, white phlegm. Continuous pulse ox monitoring. Pt shows no signs of pain at this time. Patient was given a parital bed bath, pericare provided. FC emptied out, 500 cc of shraddha colored urine. All needs met. Will continue to monitor.
--- NOTE | 2021-01-29 12:02 | NUR ---
Patient is being seen and examined by DR HODGES
--- NOTE | 2021-01-29 14:00 | NUR ---
Notes Patient is laying in bed, alert and oriented x0. Repositioned with pillows. Pt remains on TBAR, @ 4 LPM, tolerating well. Pt shows no signs of pain based on FLACC scale. Oral care performed. Will continue to monitor.
[2021-01-29 16:00] VITALS: BP_SYST 103
--- NOTE | 2021-01-29 16:00 | NUR ---
Notes Patient is sleeping at this time. Mild SOB at this time. No signs of pain at this time. Will continue to monitor.
--- NOTE | 2021-01-29 18:29 | NUR ---
Closing Notes Patient is laying in bed, alert and oriented x0. Obtunded, flat affect. Mild SOB at rest. Pt remains on TBAR @ 4 LPM, tolerating well. Continuous pulse ox monitoring, noted at 98%. Suction as needed. IV site on left FA 22 gauge intact at this time. IV ATB infusing well at this time. NS @ 40 cc/hr, as ordered. FC draining by gravity, shraddha colored urine noted. GTUBE site on right lower abdomen. Tubefeed: Glucerna 1.2 @ 50 cc/hr, infusing well. Pt remains on contact isolation for MRSA of the nares. US Chest being performed by bedside. All needs met at this time. Safety and fall precautions in place. Bed in lowest position, alarm on, locked. Will continue to monitor.
--- NOTE | 2021-01-29 18:54 | NUR ---
CHEST TUBE OUTPUT (AM SHIFT): 115 CC
--- NOTE | 2021-01-29 19:25 | NUR ---
CHANGE OF SHIFT; endorsed by day shift. on trach via T bar. on contact isolation for MRSA nares. no distress. pt. unable to use call light, bed alarm on.
--- NOTE | 2021-01-29 19:36 | NUR ---
CALLED DR. TRACIE CHAKRABORTY BAG MACHINE ADJUSTER I SPOKE WITH MELANIE
--- NOTE | 2021-01-29 19:45 | NUR ---
DR. CHAKRABORTY CALLED BACK
[2021-01-29 21:00] VITALS: BP_SYST 110
--- NOTE | 2021-01-29 21:00 | NUR ---
NOTES: pt. checked, non verbal, flat affect. tach on T bar @ 4 liters O2. IVF infusing via left forearm. arm/hand splint on left side. g tube feed @ 50 cc/hr. site clean. loyd cath to osd. on teletypesetter monitor shows sinus rhythm borderline sinus tach. observed contact isolation for MRSA nares. suctioned orally and via trach. chest tube intact on left posterior chest area with serous sanguineous drain. Addendum: 01/30/21 at 0022 by Mamie Hoover RN Late entry called Dr. Sol , Dr. [place] intelligence operations specialist and relayed result of the US of the chest done today, no further order, will endorse in am for Dr. Sol.
--- NOTE | 2021-01-30 00:15 | NUR ---
NOTES: H2O flush given. cardiac pattern unchanged. suctioned via trach.
[2021-01-30 01:07] VITALS: BP_SYST 112
--- NOTE | 2021-01-30 03:35 | NUR ---
NOTES; wound care done on sacral area, changed dressing. repositioned.
--- NOTE | 2021-01-30 05:00 | NUR ---
NOTES: g tube dressing changed. flush g tube, slightly sluggish, noted left ear, always leans on left side. off pressure and applied z silvia.
--- NOTE | 2021-01-30 06:38 | NUR ---
CLOSING NOTS; for further care and observation. Trach to T bar @ 4 kiters O2. continnuous g tube feeding with Glucerna @ 50 cc/hr. IVF @ 4o cc/hr with NS. rach [facility] patent. bed alarm on. observe contact isolation for MRSA nares. pt. non verbal, opes eyes on stimulation. will endorse to incoming shift.
[2021-01-30 06:56] LABS: BASOPHILS % (AUTO) 0.3 % (0.0-2.0); EOSINOPHILS # (AUTO) 0.2 K/uL (0.0-0.4); EOSINOPHILS % (AUTO) 1.2 % (0.0-4.0); HEMATOCRIT 31.4 % (36-54); HEMOGLOBIN 10.2 g/dL (14.0-18.0); LYMPHOCYTES # (AUTO) 1.3 K/uL (1.0-5.5); LYMPHOCYTES % (AUTO) 9.4 % (20.5-51.5); MEAN CORPUSCULAR HEMOGLOBIN 30 pg (27-31); MEAN CORPUSCULAR HGB CONC 33 % (32-36); MEAN CORPUSCULAR VOLUME 92 fL (79.0-98.0); MONOCYTES # (AUTO) 0.7 K/uL (0.0-1.0); MONOCYTES % (AUTO) 5.4 % (1.7-9.3); NEUTROPHILS # (AUTO) 11.4 K/uL (1.8-7.7); NEUTROPHILS % (AUTO) 83.7 % (40.0-70.0); PLATELET COUNT (AUTO) 494 K/uL (130-430); RED BLOOD CELL COUNT(AUTO) 3.41 MIL/uL (4.2-6.2); RED CELL DISTRIBUTION WIDTH 16.8 % (9.0-15.0); WHITE BLOOD COUNT (AUTO) 13.6 K/uL (4.8-10.8)
[2021-01-30 07:31] LABS: ALBUMIN 1.4 g/dL (3.4-4.8); C-REACTIVE PROTEIN QUANT 5.8 mg/dL (0-0.5); CALCIUM 8.1 mg/dL (8.4-11.0); CREATININE 0.32 mg/dL (0.55-1.30); TOTAL BILIRUBIN 0.3 mg/dL (0.0-1.0)
--- NOTE | 2021-01-30 08:00 | NUR ---
OPENING NOTES AWAKE, NON-VERBAL. TRACH TO T-BAR ON 4 LITERS OF OXYGEN SUPPORT. NO SIGN OF PAIN. IV FLUID INFUSING WELL. ONGOING GTUBE FEEDING; WITH 3 ML BROWNISH RESIDUAL. CHEST TUBE IN PLACE DRAINING SMALL AMOUNT OF SEROSANGUINEOUS FLUID. HALEY CATHETER IN PLACE, DRAINING TRISTIN URINE. ORAL CARE DONE. REPOSITIONED. FALL AND SAFETY CHECKS DONE. WILL CLOSELY MONITOR.
[2021-01-30 08:04] VITALS: BP_SYST 116
[2021-01-30 08:36] LABS: ERYTHROCYTE SEDIMENTATION RATE 91 MM/HR (0-15)
[2021-01-30] MEDS: LINEZOLID 300 ML IV SCH ×2 (09:29→20:56)
[2021-01-30] MEDS: ENOXAPARIN SODIUM 40 MG/0.4 ML SYRINGE SUBCUT SCH (09:30)
[2021-01-30] MEDS: CHOLECALCIFEROL (VITAMIN D3) 2,000 UNIT TABLET PO SCH (09:31)
[2021-01-30] MEDS: ASCORBIC ACID 500 MG TABLET PO SCH (09:31)
[2021-01-30] MEDS: MUPIROCIN 2% TOPICAL OINTMENT 22 GM TP SCH ×2 (09:32→20:56)
[2021-01-30] MEDS: BALSAM PERU/CASTOR OIL 60 GM OINT...G. TP SCH (09:32)
--- NOTE | 2021-01-30 09:45 | NUR ---
MD ROUNDS, MED PASS AND WOUND CARE DR Amish SONI SAW PATIENT AT BEDSIDE. AWARE THAT CHEST TUBE WAS NOT DRAINING WELL. RE-ADJUSTED CONNECTION; DRAINAGE FLOW IMPROVED. DUE MEDS ADMINISTERED. WOUND CARE ON RIGHT SHOULDER DONE. SAFETY CHECKS DONE. WILL MONITOR.
[2021-01-30 11:31] VITALS: BP_SYST 129
--- NOTE | 2021-01-30 12:00 | NUR ---
REDNESS REDNESS NOTED ON LEFT EAR AND LEFT SHOULDER. APPLIED OPTIFOAM DRESSING TO PROTECT THE SKIN.
[2021-01-30] MEDS: PIPERACILLIN/TAZO 3.375/DEX-IS 50 ML IV SCH ×2 (12:49→18:33)
--- NOTE | 2021-01-30 14:05 | NUR ---
ROUNDS SUCTIONED TRACH. CHEST TUBE STILL DRAINING SEROSANGUINEOUS FLUIDS. SAFETY CHECKS DONE.
[2021-01-30 15:36] VITALS: BP_SYST 134
--- NOTE | 2021-01-30 15:44 | NUR ---
BOWEL MOVEMENT AND WOUND CARE CLEANED. WOUND DRESSINGS WERE SOILED; CHANGED. REPOSITIONED.
[2021-01-30] MEDS: NACL 0.9% 1,000 ML IV SCH (18:33)
--- NOTE | 2021-01-30 18:50 | NUR ---
CLOSING NOTES AWAKE, NONVERBAL. NO SIGN OF DISTRESS. TOLERATING TUBE FEEDING. HALEY CATHETER STILL IN PLACE. CHEST TUBE STILL DRAINING SEROSANGUINEOUS FLUID. ALL NEEDS MET THROUGHOUT SHIFT. FALL AND SAFETY CHECKS DONE. WILL ENDORSE TO NIGHT NURSE.
--- NOTE | 2021-01-30 19:30 | NUR ---
Opening note Received report from day shift. Pt is awake, nonverbal. No s/s of respiratory distress noted. IV site is intact and patent with fluids running at ordered rate. Escamilla catheter is intact and patent. Chest tube draining serosanguineous fluid. Tube feeding is running at ordered rate, tolerating well. Bed is locked in lowest position. Will continue to monitor
[2021-01-30 20:00] VITALS: BP_SYST 108
[2021-01-31] VITALS: BP_SYST 108
[2021-01-31] MEDS: PIPERACILLIN/TAZO 3.375/DEX-IS 50 ML IV SCH ×4 (00:15→19:38)
--- NOTE | 2021-01-31 00:15 | NUR ---
Rounds Pt sleeping. No s/s of respiratory distress. Chest tube and loyd still draining. Tube feeding running at ordered rate. Fall and safety checks in place. Will continue to monitor
--- NOTE | 2021-01-31 06:38 | NUR ---
Closing note Pt is awake.No s/s of respiratory distress noted. IV site is intact and patent with fluids running at ordered rate. Escamilla catheter is intact and patent. Chest tube draining serosanguineous fluid. Tube feeding is running at ordered rate, tolerating well. Bed is locked in lowest position. Will continue to monitor until endorsed to day shift
[2021-01-31 07:04] LABS: BASOPHILS # (AUTO) 0.1 K/uL (0.0-0.2); BASOPHILS % (AUTO) 0.4 % (0.0-2.0); EOSINOPHILS # (AUTO) 0.1 K/uL (0.0-0.4); EOSINOPHILS % (AUTO) 0.8 % (0.0-4.0); HEMATOCRIT 32.8 % (36-54); HEMOGLOBIN 10.8 g/dL (14.0-18.0); LYMPHOCYTES # (AUTO) 1.1 K/uL (1.0-5.5); LYMPHOCYTES % (AUTO) 7.6 % (20.5-51.5); MEAN CORPUSCULAR HEMOGLOBIN 30 pg (27-31); MEAN CORPUSCULAR HGB CONC 33 % (32-36); MEAN CORPUSCULAR VOLUME 92 fL (79.0-98.0); MONOCYTES # (AUTO) 0.8 K/uL (0.0-1.0); MONOCYTES % (AUTO) 5.4 % (1.7-9.3); NEUTROPHILS # (AUTO) 12.2 K/uL (1.8-7.7); NEUTROPHILS % (AUTO) 85.8 % (40.0-70.0); PLATELET COUNT (AUTO) 539 K/uL (130-430); RED BLOOD CELL COUNT(AUTO) 3.59 MIL/uL (4.2-6.2); WHITE BLOOD COUNT (AUTO) 14.2 K/uL (4.8-10.8)
[2021-01-31 07:18] LABS: CALCIUM 8.2 mg/dL (8.4-11.0); CREATININE 0.39 mg/dL (0.55-1.30); POTASSIUM 3.7 mmol/L (3.5-5.1)
--- NOTE | 2021-01-31 07:45 | NUR ---
OPENING NOTES AWAKE, NON-VERBAL, FLAT AFFECT. TRACH TO T-BAR ON 4 LITERS OF OXYGEN SUPPORT. NO SIGN OF PAIN. IV FLUID INFUSING WELL. SPLINT ON LEFT HAND. ONGOING G-TUBE FEEDING; MORE THAN 150ML RESIDUAL, HELD FEEDING. CHEST TUBE IN PLACE DRAINING MODERATE AMOUNT OF SEROSANGUINEOUS FLUID. HALEY CATHETER IN PLACE, DRAINING YELLOW URINE. ORAL CARE DONE. REPOSITIONED. FALL AND SAFETY CHECKS DONE. WILL CLOSELY MONITOR.
[2021-01-31 08:00] VITALS: BP_SYST 112
--- NOTE | 2021-01-31 08:45 | NUR ---
FEEDING HELD CHECKED RESIDUAL IS STILL MORE THAN 150ML. HELD FEEDING.
[2021-01-31] MEDS: ASCORBIC ACID 500 MG TABLET PO SCH (09:15)
[2021-01-31] MEDS: CHOLECALCIFEROL (VITAMIN D3) 2,000 UNIT TABLET PO SCH (09:15)
[2021-01-31] MEDS: LINEZOLID 300 ML IV SCH ×2 (09:15→20:51)
[2021-01-31] MEDS: MUPIROCIN 2% TOPICAL OINTMENT 22 GM TP SCH ×2 (09:16→20:52)
[2021-01-31] MEDS: BALSAM PERU/CASTOR OIL 60 GM OINT...G. TP SCH (09:16)
[2021-01-31] MEDS: ENOXAPARIN SODIUM 40 MG/0.4 ML SYRINGE SUBCUT SCH (09:17)
--- NOTE | 2021-01-31 10:00 | NUR ---
ROUNDS G-TUBE RESIDUAL STILL HIGH. HELD FEEDINGS. SAFETY CHECKS DONE.
--- NOTE | 2021-01-31 11:09 | NUR ---
WOUND CARE WOUND CARE DONE ON THE SACRAL AREA. TOLERATED WELL BY PATIENT. REPOSITIONED IN BED. SAFETY CHECKS DONE. WILL MONITOR.
--- NOTE | 2021-01-31 11:45 | NUR ---
RESUMED FEEDING RESIDUAL NOW AT 50ML. RESUMED FEEDING. ASPIRATION PRECAUTIONS IN PLACE. SAFETY CHECKS DONE. WILL MONITOR.
[2021-01-31 12:51] VITALS: BP_SYST 113
--- NOTE | 2021-01-31 14:00 | NUR ---
ROUNDS TOLERATING G-TUBE FEEDING. SAFETY CHECKS DONE. PATIENT HAD A SMALL BOWEL MOVEMENT, CLEANED AND REPOSITIONED.
--- NOTE | 2021-01-31 14:08 | NUR ---
CM note: late entry: faxed the [facility] referral to [facility], the case is denied dt not contracted with [facility].-- CARLIN Guillen for [facility] made aware.
--- NOTE | 2021-01-31 16:00 | NUR ---
ROUNDS TOLERATING TUBE FEEDING. IV STILL INFUSING WELL. CHEST TUBE DRAINING THICK SEROSANGUINEOUS FLUID IN MODERATE AMOUNT. HALEY IN PLACE. SAFETY CHECKS DONE. REPOSITIONED.
[2021-01-31 16:50] VITALS: BP_SYST 116
[2021-01-31] MEDS: NACL 0.9% 1,000 ML IV SCH (19:40)
[2021-01-31 20:00] VITALS: BP_SYST 120
--- NOTE | 2021-02-01 00:15 | NUR ---
Rounds Pt sleeping. No s/s of respiratory distress. Chest tube and loyd still draining. Tube feeding running at ordered rate, tolerating well. Fall and safety checks in place. Will continue to monitor
[2021-02-01] MEDS: PIPERACILLIN/TAZO 3.375/DEX-IS 50 ML IV SCH ×4 (00:19→17:27)
[2021-02-01 02:27] VITALS: BP_SYST 137
--- NOTE | 2021-02-01 06:30 | NUR ---
Closing note Pt is awake, nonverbal .No s/s of respiratory distress noted. IV site is intact and patent with fluids running at ordered rate. Escamilla catheter is intact and patent. Chest tube draining serosanguineous fluid. Tube feeding is running at ordered rate, tolerating well. Bed is locked in lowest position. All needs met throughout shift. Will continue to monitor until endorsed to day shift
[2021-02-01 06:46] LABS: BASOPHILS # (AUTO) 0.1 K/uL (0.0-0.2); BASOPHILS % (AUTO) 0.4 % (0.0-2.0); EOSINOPHILS # (AUTO) 0.1 K/uL (0.0-0.4); EOSINOPHILS % (AUTO) 0.9 % (0.0-4.0); HEMATOCRIT 34.1 % (36-54); HEMOGLOBIN 11.1 g/dL (14.0-18.0); LYMPHOCYTES # (AUTO) 1.2 K/uL (1.0-5.5); LYMPHOCYTES % (AUTO) 9.5 % (20.5-51.5); MEAN CORPUSCULAR HEMOGLOBIN 30 pg (27-31); MEAN CORPUSCULAR HGB CONC 33 % (32-36); MEAN CORPUSCULAR VOLUME 91 fL (79.0-98.0); MONOCYTES # (AUTO) 0.6 K/uL (0.0-1.0); MONOCYTES % (AUTO) 4.7 % (1.7-9.3); NEUTROPHILS # (AUTO) 10.7 K/uL (1.8-7.7); NEUTROPHILS % (AUTO) 84.5 % (40.0-70.0); PLATELET COUNT (AUTO) 566 K/uL (130-430); RED BLOOD CELL COUNT(AUTO) 3.76 MIL/uL (4.2-6.2); RED CELL DISTRIBUTION WIDTH 16.6 % (9.0-15.0); WHITE BLOOD COUNT (AUTO) 12.6 K/uL (4.8-10.8)
[2021-02-01 07:02] LABS: CALCIUM 8.3 mg/dL (8.4-11.0); CREATININE 0.29 mg/dL (0.55-1.30); POTASSIUM 3.9 mmol/L (3.5-5.1)
[2021-02-01 08:11] VITALS: BP_SYST 118
--- NOTE | 2021-02-01 08:13 | NUR ---
opening note patient found in bed and expresses no complaints of pain or discomfort.IV, loyd, gtube and chest are in tact and patent . safety , fall, respiration and aspiration precautions in place. bed in lowest position, rails are up, bed is locked and call light in reach. will continue to monitor.
[2021-02-01] MEDS: LINEZOLID 300 ML IV SCH ×2 (08:21→22:18)
[2021-02-01] MEDS: ASCORBIC ACID 500 MG TABLET PO SCH (09:18)
[2021-02-01] MEDS: CHOLECALCIFEROL (VITAMIN D3) 2,000 UNIT TABLET PO SCH (09:19)
[2021-02-01] MEDS: BALSAM PERU/CASTOR OIL 60 GM OINT...G. TP SCH (09:19)
[2021-02-01] MEDS: ENOXAPARIN SODIUM 40 MG/0.4 ML SYRINGE SUBCUT SCH (09:20)
--- NOTE | 2021-02-01 12:23 | NUR ---
nursing note patient resting in bed and expresses no complaints of pain or discomfort. Escamilla catheter was drained and gtube placement confirmed, no residual and was flushed with 100ml of water. patient was turned and chest and IV are in tact and working properly. will continue to monitor.
[2021-02-01 12:35] VITALS: BP_SYST 122
--- NOTE | 2021-02-01 14:34 | NUR ---
Nutrition F/U RD reviewed pt's current EMR record including diet Hx, physician notes, nursing notes, pertinent labs/meds/procedures, care trends, and care activity. Admission Dx: Pulmonary Abscess/COVID PMH: chronic respiratory failure. s/p feeding tube. Pt was also found w/ sepsis secondary to left lung abscess, COVID-19 infection with aspiration pneumonia, hyponatremia, moderate malnutrition, chronic respiratory failure, dysphagia, traumatic brain injury. SARS-CoV-2 Ag (Rapid) Positive 01/22 & (PCR) Negative 01/23 Current Diet Order/Nutrition Support: Glucerna 1.2 at 50 ml/hr, Free Water Flush: 100 q6H via GT x7 days Subjective Info: Pt is S/P Left sided pigtail cath placement on 01/25, CXR shows improvement in Left Pleural effusion. Per EMR review, pt is on t-bar to vent, BM 02/01 x1, abdomen is soft and nondistended, Ceferino scale: 12, pt was seen by healthcare science specialist on 01/27 and noted multiple wounds 01/27. EN rate: 50ml (01/31), GRV: 3ml (01/31). Pt w/ wounds and Lucho is warranted for wound healing. RD s/w pt's nurse Truman who reported no EN issues overnight and no GRV this morning. Pt is pending placement. Pertinent Medications: VIT C, VIT D, lovenox, Piperacillin/tazobactam, zinc Pertinent Labs: 02/01 WBC 12.6H, Na 137WNL, K 3.9WNL, BG 116H, BUN 7L, Cre 0.29L Height: 5 feet 7.00 inches Weight: 105 pounds/ 47.780217 kilograms (01/24) -stable Body Mass Index: 16.44 kg/m2 Estimated Energy Expenditure (kcals/day) 1095-8533 kcal/day (30-35 kcal/kg CBW d/t malnutrition, wound healing) Estimated Protein Required (g/day) 58-72 gm/day (1.2-1.5 gm/kg CBW d/t malnutrition, wound healing) Estimated Fluid Required (l/day) 1.4-1.7 ml/day (1ml/kcal/day for maintenance) Problem/Etiology/Signs/Symptoms *MODIFIED* Increase calories and Protein intake R/T Moderate protein calorie malnutrition and dysphagia AEB BMI: 16.5kg/m2, multiple wounds, and is on enteral feeding . *ongoing Expected Outcomes/Goals - Monitor EN intake and tolerance w/ goal of pt meeting at least 80% of estimated nutritional needs, labs trending WNL, normal GI function, and skin integrity/wt maintenance Dietitian Recommendations * Recommend Glucerna 1.2 at 50 ml/hr (goal rate), Lucho BID, Free water flush: 100ml/Q6hrs via GT Provides: 1600 kcal/day, 72 gm protein/day, 1366 ml free water/day Meets: 95% of upper end of estimated caloric needs and 107% of upper end of estimated protein needs Follow Up High Risk: F/U in 2-3 days
--- NOTE | 2021-02-01 14:38 | NUR ---
Dietitian Recommendations * Recommend Glucerna 1.2 at 50 ml/hr (goal rate), Lucho BID, Free water flush: 100ml/Q6hrs via GT Provides: 1600 kcal/day, 72 gm protein/day, 1366 ml free water/day Meets: 95% of upper end of estimated caloric needs and 107% of upper end of estimated protein needs Please see Nutrition F/U note for details PENITENTIARY, RD
[2021-02-01 15:53] VITALS: BP_SYST 146
[2021-02-01 19:00] VITALS: BP_SYST 145
--- NOTE | 2021-02-01 19:15 | NUR ---
change of shift.pt.presents isolation status:contact;mrsa;nares.pt.presents iv access location lt.antecubital iv fluids infusing. pt.presents trach o2 therapy via t-bar;rate;15l/min.02-sat%=98%.pt.presents loyd cath intact pt.presents g-tube g-tube feed infusing:glucerna:1.2;rate:50ml/hr.pt.presents chest tube location:lt.axillae.dsg intact.i have noted the chest tube drainage level @1500ml.call light/telephone w/in access of the pt. Addendum: 02/02/21 at 0206 by Morgan Bello RN pt.presents non-verbal speech status.pt.will trach nsg visually.pt.presents immobilizer lt.wrist/forearm.in place. lt.hand;pulse.temp,sensation assessed wnl.
--- NOTE | 2021-02-01 19:19 | NUR ---
CLOSING NOTE PATIENT IN BED AND EXPRESSES NO COMPLAINTS OF PAIN OR DISCOMFORT. FALL,RESPIRATORY, SAFETY AND ASPIRATIONS PRECAUTIONS IN PLACE. BED IS LOCKED AND IN LOWEST POSITION, THREE RAILS ARE UP AND CALL LIGHT IN REACH.IV, HALEY CATHETER, GTUBE AND CHEST TUBE ARE PATENT AND IN TACT. WILL ENDORSE TO RADIATION PROTECTION SPECIALIST.
[2021-02-01 20:00] VITALS: BP_SYST 145
--- NOTE | 2021-02-01 20:00 | NUR ---
pt.assessed.v/s assess values wnl.o2-sat%=98%.trach intact i have attended to the oral/trach care suction.g-tube intact g-tube feed infusing.iv access intact iv fluids infusing.chest tube intact note drainage.pt.assessed for cleanliness.pt.repositioned.call light/ telephone placed w/in access of the pt. Addendum: 02/02/21 at 0210 by Morgan Bello RN per flacc pain mgx pt.absent facial grimaces/body posturing.
[2021-02-01] MEDS: NACL 0.9% 1,000 ML IV SCH (21:00)
--- NOTE | 2021-02-01 21:00 | NUR ---
2100p medication administered.via the g-tube intact.flushed w/out resistance.per flacc pain mgx pt.absent facial grimaces/ body posturing.i have administered zyvox abx ivpb.call light/telephone placed w/in access of the pt.
--- NOTE | 2021-02-01 22:00 | NUR ---
pt.assessed.trach intact.i have attended to the oral/trach care suction.o2-sat%=98%.iv access intact iv fluids infusing. g-tube intact g-tube feed infusing.loyd cath intact urine content present.chest tube intact.pt.assessed for cleanliness pt.repositioned.call light/telephone pace w/in access of the pt.
--- NOTE | 2021-02-02 | NUR ---
pt.assessed.v/s assessed value wnl.trach intact.i have attended to the oral/trach care/suction.02-sat%=98%.iv access intact iv fluids infusing.i have administered zosyn abx midnight dose.g-tube intact g-tube feed infusing.loyd cath intact urine content present.chest tube intact. pt.assessed for cleanliness.pt.repositioned.per flacc pain mgx pt.absent facial grimaces/body posturing.call light/telephone placed w/in access of the pt.
[2021-02-02 00:20] VITALS: BP_SYST 124
--- NOTE | 2021-02-02 02:00 | NUR ---
pt.assessed.pr.presents quiescent affect.trach intact i have attended to the oral/trach care suction.iv access intact iv fluids infusing.g-tube intact g-tube feed infusing.loyd cath intact urine content present.chest tube intact.pt.assessed for cleanliness pt.repositioned.02-sat%=98%.call light/telephone placed w/in access of the pt.
--- NOTE | 2021-02-02 04:00 | NUR ---
pt.assessed.trach intact.i have attended to the oral/trach care/suction.iv access intact iv fluids infusing.g-tube intact t g-tube feed infusing. loyd cath intact urine content present.g-tube intact.per flacc pain mgx pt.absent facial grimaces/body posturing.pt.assessed for cleanliness.pt.repositioned.call light/telephone placed w/in access of the pt. Addendum: 02/02/21 at 0424 by Morgan Bello RN 02-sat%=98%.
[2021-02-02] MEDS: NACL 0.9% 1,000 ML IV SCH (04:35)
[2021-02-02] MEDS: PIPERACILLIN/TAZO 3.375/DEX-IS 50 ML IV SCH ×5 (05:03→23:34)
--- NOTE | 2021-02-02 06:10 | NUR ---
pt.assessed.trach intact.i have attended to the oral/trach care/suction.iv access intact iv fluids infusing.i have administered zosyn abx ivpb 0600a dose.i have changed the iv fluids bag.g-tube intact g-tube feed infusing.loyd cath intact urine content present.chest tube intact.pt.assessed for cleanliness.pt.cleaned/repositioned.i have attended to the dsg changes;wounds,g-tube,o2-sat%=98%call light/telephone placed w/in access of the pt. Addendum: 02/02/21 at 0624 by Morgan Bello RN per flacc pain mgx pt.absent facial grimaces/body posturing.
[2021-02-02 07:03] LABS: BASOPHILS # (AUTO) 0.1 K/uL (0.0-0.2); BASOPHILS % (AUTO) 0.5 % (0.0-2.0); EOSINOPHILS # (AUTO) 0.1 K/uL (0.0-0.4); EOSINOPHILS % (AUTO) 0.6 % (0.0-4.0); HEMATOCRIT 33.2 % (36-54); LYMPHOCYTES % (AUTO) 5.5 % (20.5-51.5); MEAN CORPUSCULAR HEMOGLOBIN 30 pg (27-31); MEAN CORPUSCULAR HGB CONC 33 % (32-36); MEAN CORPUSCULAR VOLUME 91 fL (79.0-98.0); MONOCYTES # (AUTO) 0.8 K/uL (0.0-1.0); MONOCYTES % (AUTO) 4.3 % (1.7-9.3); NEUTROPHILS # (AUTO) 16.6 K/uL (1.8-7.7); NEUTROPHILS % (AUTO) 89.1 % (40.0-70.0); PLATELET COUNT (AUTO) 571 K/uL (130-430); RED BLOOD CELL COUNT(AUTO) 3.64 MIL/uL (4.2-6.2); RED CELL DISTRIBUTION WIDTH 17.2 % (9.0-15.0); WHITE BLOOD COUNT (AUTO) 18.6 K/uL (4.8-10.8)
[2021-02-02 07:40] VITALS: BP_SYST 111
--- NOTE | 2021-02-02 07:42 | NUR ---
Opening Note patient found in bed and expresses no complaints of pain or discomfort.IV, loyd, gtube and chest are in tact and patent . safety , fall, respiration and aspiration precautions in place. bed in lowest position, rails are up, bed is locked and call light in reach. will continue to monitor.
[2021-02-02 08:06] LABS: CALCIUM 8.6 mg/dL (8.4-11.0); CREATININE 0.3 mg/dL (0.55-1.30); POTASSIUM 3.8 mmol/L (3.5-5.1)
[2021-02-02] MEDS: LINEZOLID 300 ML IV SCH ×2 (09:00→21:36)
[2021-02-02] MEDS: ASCORBIC ACID 500 MG TABLET PO SCH (09:01)
[2021-02-02] MEDS: CHOLECALCIFEROL (VITAMIN D3) 2,000 UNIT TABLET PO SCH (09:01)
[2021-02-02] MEDS: BALSAM PERU/CASTOR OIL 60 GM OINT...G. TP SCH (09:02)
[2021-02-02] MEDS: ENOXAPARIN SODIUM 40 MG/0.4 ML SYRINGE SUBCUT SCH (09:02)
--- NOTE | 2021-02-02 10:37 | NUR ---
Nursing Note Patient remains in bed and expresses no pain or discomfort at this time. Gtube placement was checked and placement confirmed, 0 residual, and gtube it patent. Will continue to monitor.
--- NOTE | 2021-02-02 10:54 | NUR ---
Nursing note patient taken to get a Xray at this time.
[2021-02-02 13:14] VITALS: BP_SYST 110
[2021-02-02 17:22] VITALS: BP_SYST 115
--- NOTE | 2021-02-02 18:00 | NUR ---
nursing note Patient found in bed resting with no sign of distress or pain and VS stable at this time. patient turned, gtube placement confirmed and flushed with 100ml water, zero residual from gtube. Escamilla emptied and output documented. G tube and IV patent and intact. Will continue to monitor.
--- NOTE | 2021-02-02 19:30 | NUR ---
CLOSING NOTE PATIENT IN BED AND EXPRESSES NO COMPLAINTS OF PAIN OR DISCOMFORT. FALL,RESPIRATORY, SAFETY AND ASPIRATIONS PRECAUTIONS IN PLACE. BED IS LOCKED AND IN LOWEST POSITION, THREE RAILS ARE UP AND CALL LIGHT IN REACH.IV, HALEY CATHETER, GTUBE AND CHEST TUBE ARE PATENT AND IN TACT. WILL ENDORSE TO HORTICULTURE SUPERVISOR.
--- NOTE | 2021-02-02 19:30 | NUR ---
Opening Note Received report from AM nurse using SBAR approach.
[2021-02-03] VITALS (7 sets, daily range): BP systolic 109–130
--- NOTE | 2021-02-03 04:00 | NUR ---
Wound Care Cleaned and performed wound care on patient. Patient tolerated well.
[2021-02-03 06:15] LABS: CALCIUM 8.6 mg/dL (8.4-11.0); CREATININE 0.29 mg/dL (0.55-1.30); POTASSIUM 3.8 mmol/L (3.5-5.1)
[2021-02-03 06:26] LABS: BASOPHILS # (AUTO) 0.1 K/uL (0.0-0.2); BASOPHILS % (AUTO) 0.5 % (0.0-2.0); EOSINOPHILS # (AUTO) 0.1 K/uL (0.0-0.4); HEMATOCRIT 31.9 % (36-54); HEMOGLOBIN 10.5 g/dL (14.0-18.0); LYMPHOCYTES % (AUTO) 7.9 % (20.5-51.5); MEAN CORPUSCULAR HEMOGLOBIN 30 pg (27-31); MEAN CORPUSCULAR HGB CONC 33 % (32-36); MEAN CORPUSCULAR VOLUME 91 fL (79.0-98.0); MONOCYTES # (AUTO) 0.7 K/uL (0.0-1.0); MONOCYTES % (AUTO) 5.5 % (1.7-9.3); NEUTROPHILS # (AUTO) 10.7 K/uL (1.8-7.7); NEUTROPHILS % (AUTO) 85.1 % (40.0-70.0); PLATELET COUNT (AUTO) 501 K/uL (130-430); RED CELL DISTRIBUTION WIDTH 17.2 % (9.0-15.0); WHITE BLOOD COUNT (AUTO) 12.6 K/uL (4.8-10.8)
[2021-02-03] MEDS: PIPERACILLIN/TAZO 3.375/DEX-IS 50 ML IV SCH ×3 (06:32→18:02)
--- NOTE | 2021-02-03 08:00 | NUR ---
PT NONVERBAL,TRACH WITH TBAR ON O2 3L/M,VSS,HOB UP 45 DEGREES ON TF GLUCERNA 1.2 RUNS @ 50CC PER HR VIA GT.NO RESIDUAL PER GT.TOTAL CARE PROVIDED.SAFETY MAINTAINED
[2021-02-03] MEDS: ASCORBIC ACID 500 MG TABLET PO SCH (08:57)
[2021-02-03] MEDS: CHOLECALCIFEROL (VITAMIN D3) 2,000 UNIT TABLET PO SCH (08:57)
[2021-02-03] MEDS: ENOXAPARIN SODIUM 40 MG/0.4 ML SYRINGE SUBCUT SCH (08:58)
[2021-02-03] MEDS: BALSAM PERU/CASTOR OIL 60 GM OINT...G. TP SCH (08:59)
[2021-02-03] MEDS ORDERED: PANTOPRAZOLE SODIUM 40 MG/VIAL (PROTONIX) IVP ONE (09:00)
[2021-02-03] MEDS: LINEZOLID 300 ML IV SCH ×2 (09:03→21:36)
--- NOTE | 2021-02-03 10:00 | NUR ---
GIVE AM MEDS DUE,PT TOLERATED WELL NO N/V.HOURLY ROUNDS MADE,SAFETY MAINTAINED.
--- NOTE | 2021-02-03 12:00 | NUR ---
AFEBRILE,VSDR. JerryCAME AND SEEN PT.NO FURTHER ORDERS OBTAINED.CONTINUE IV ANTIBIOTIC DUE NO ADVERSE REACTIONS NOTED.
--- NOTE | 2021-02-03 14:00 | NUR ---
IVF CONTINUE INFUSING,IV SITE IN LEFT ANTECUBITAL REMAINS PATENT AND INTACT. PT SLEEPING WELL IN BED.NO ACUTE DISTRESS NOTED.
--- NOTE | 2021-02-03 16:00 | NUR ---
afebrile,vss,left lateral chest tube drains serosanguinously to 20cm water seal suction.
[2021-02-03] MEDS: NACL 0.9% 1,000 ML IV SCH (18:02)
--- NOTE | 2021-02-03 18:13 | NUR ---
pt sleeping quietly in bed,needs attended,safety maintained,no significant event throughout am shift,continue to monitor pt.
--- NOTE | 2021-02-03 19:06 | NUR ---
OPENING NOTES RECEIVED PATIENT PATIENT RESTING IN BED. NO SHORTNESS OF BREATH. BED IN LOWEST POSITION AND LOCKED. BED ALARM ON. HOB ELEVATED. CALL LIGHT WITHIN REACH. HALEY CATHETER IN PLACE, NO KINKS, NO LOOPS, BAG NOT TOUCHING THE FLOOR. DISCUSSED PLAN OF CARE WITH PATIENT AND FAMILY. FALL, RESPIRATORY, SAFETY ISOLATION AND ASPIRATION PRECAUTIONS IN PLACE. WILL CONTINUE TO MONITOR.
[2021-02-04] VITALS: BP_SYST 116
[2021-02-04] MEDS: PIPERACILLIN/TAZO 3.375/DEX-IS 50 ML IV SCH ×4 (00:26→18:12)
--- NOTE | 2021-02-04 01:41 | NUR ---
PATIENT RESTING, NO SIGNS OF DISTRESS NOTED. WILL CONTINUE TO MONITOR.
--- NOTE | 2021-02-04 06:11 | NUR ---
CLOSING NOTES PATIENT IS RESTING IN BED. NO SOB NOTED, BED IN LOWEST POSITION AND LOCKED. BED ALARM ON. HOB ELEVATED. CALL LIGHT WITHIN REACH. HALEY CATHETER IN PLACE, NO KINKS, NO LOOPS, BAG NOT TOUCHING THE FLOOR. FALL, RESPIRATORY, SAFETY, ISOLATION AND ASPIRATION PRECAUTIONS IN PLACE THROUGHOUT SHIFT, ALL NEEDS MET THROUGHOUT SHIFT. WILL ENDORSE CARE TO ONCOMING SHIFT.
[2021-02-04 06:39] LABS: BASOPHILS # (AUTO) 0.1 K/uL (0.0-0.2); BASOPHILS % (AUTO) 0.7 % (0.0-2.0); EOSINOPHILS # (AUTO) 0.1 K/uL (0.0-0.4); EOSINOPHILS % (AUTO) 0.8 % (0.0-4.0); HEMOGLOBIN 10.8 g/dL (14.0-18.0); LYMPHOCYTES # (AUTO) 0.9 K/uL (1.0-5.5); LYMPHOCYTES % (AUTO) 9.6 % (20.5-51.5); MEAN CORPUSCULAR HEMOGLOBIN 30 pg (27-31); MEAN CORPUSCULAR HGB CONC 33 % (32-36); MEAN CORPUSCULAR VOLUME 90 fL (79.0-98.0); MONOCYTES # (AUTO) 0.7 K/uL (0.0-1.0); NEUTROPHILS # (AUTO) 7.7 K/uL (1.8-7.7); NEUTROPHILS % (AUTO) 81.9 % (40.0-70.0); PLATELET COUNT (AUTO) 520 K/uL (130-430); RED BLOOD CELL COUNT(AUTO) 3.65 MIL/uL (4.2-6.2); RED CELL DISTRIBUTION WIDTH 17.6 % (9.0-15.0); WHITE BLOOD COUNT (AUTO) 9.4 K/uL (4.8-10.8)
[2021-02-04 06:57] LABS: CALCIUM 8.6 mg/dL (8.4-11.0); CREATININE 0.28 mg/dL (0.55-1.30); POTASSIUM 3.6 mmol/L (3.5-5.1)
[2021-02-04 07:44] VITALS: BP_SYST 112
--- NOTE | 2021-02-04 07:46 | NUR ---
OPENING NOTES: PATIENT RESTING IN BED. HOB ELEVATED. BREATHING EVEN AND NON LABORED TO O2 AT 4 L/ TBAR. FALL,SAFETY AND ASPIRATION PRECAUTION REINFORCED. BED LOCKED ALARM ON AND IN LOWEST POSITION. CALL LIGHT WITHIN REACH. CHEST TUBE IN PLACED. HALEY CATHETER IN PLACED AND DRAINING BY GRAVITY. WILL CONTINUE MONITOR PATIENT.
[2021-02-04] MEDS: CHOLECALCIFEROL (VITAMIN D3) 2,000 UNIT TABLET PO SCH (09:37)
[2021-02-04] MEDS: ASCORBIC ACID 500 MG TABLET PO SCH (09:37)
[2021-02-04] MEDS: LINEZOLID 300 ML IV SCH ×2 (09:38→22:21)
[2021-02-04] MEDS: BALSAM PERU/CASTOR OIL 60 GM OINT...G. TP SCH (09:38)
[2021-02-04] MEDS: PANTOPRAZOLE SODIUM 40 MG/VIAL (PROTONIX) IVP SCH (09:38)
[2021-02-04] MEDS: ENOXAPARIN SODIUM 40 MG/0.4 ML SYRINGE SUBCUT SCH (09:41)
[2021-02-04 12:00] VITALS: BP_SYST 114
[2021-02-04 15:28] VITALS: BP_SYST 135
--- NOTE | 2021-02-04 17:52 | NUR ---
Nutrition F/U RD reviewed pt's current EMR including diet Hx, physician notes, nursing notes, pertinent labs/meds/procedures, care trends, and care activity. Short note d/t lack of time. Current Diet Order/Nutrition Support: Glucerna 1.2 at 50 ml/hr, Lucho BID, Free Water Flush: 100 q6H via GT x3 days RD and underwriting internship visited pt's room. TF was seen infusing as per physician order -- 208 ml infused, providing 250 kcal. Bedscale wt taken: 95.5# -- note possible 9.5# wt decrease since 01/24 (105#) -- unsure of reliability. Per EMR review, TF Rate: 50 ml 02/03; GRV: 0 02/03; last BM x2 02/04. RN was busy during RD rounds to unit. Pt appears to be tolerating TF well. Current TF prescription remains adequate/appropriate. Pt is at moderate nutritional risk; RD to F/U within 3-5 days.
[2021-02-04] MEDS: NACL 0.9% 1,000 ML IV SCH (18:21)
--- NOTE | 2021-02-04 18:59 | NUR ---
Closing notes: PATIENT RESTING IN BED. HOB ELEVATED. IV AND G TUBE INFUSING WELL. CHEST TUBE IN PLACED. BED LOCKED,ALARM ON AND IN LOWEST POSITION. FALL, SAFETY AND ASPIRATION MEASURES PROVIDED.
[2021-02-04 20:00] VITALS: BP_SYST 169
[2021-02-05] MEDS: PIPERACILLIN/TAZO 3.375/DEX-IS 50 ML IV SCH ×4 (00:05→18:06)
[2021-02-05 00:36] VITALS: BP_SYST 128
--- NOTE | 2021-02-05 05:45 | NUR ---
AT 1900 I RECEIVED PT IN BED NONVERBA AWAKE , ON O2 BY TBAR DIMINISHED LUNG SOUND , VSS , NO PAIN , ON GTF NO RESIDUAL ON IVF SITE IS INTACT , HAS A SACRAL WOUND WITH A CLEAN DRESSING , AND HAS A SKIN TEAR ON BOTH SHOLDER COVERD WITH CLEAN DRESSING , PT WAS GIVEN ABED BATH [id number] LINEN CHANGED , REPOSITIONED
[2021-02-05 08:02] VITALS: BP_SYST 116
[2021-02-05] MEDS: ASCORBIC ACID 500 MG TABLET PO SCH (09:38)
[2021-02-05] MEDS: PANTOPRAZOLE SODIUM 40 MG/VIAL (PROTONIX) IVP SCH (09:38)
[2021-02-05] MEDS: CHOLECALCIFEROL (VITAMIN D3) 2,000 UNIT TABLET PO SCH (09:38)
[2021-02-05] MEDS: LINEZOLID 300 ML IV SCH ×2 (09:40→20:52)
[2021-02-05] MEDS: ENOXAPARIN SODIUM 40 MG/0.4 ML SYRINGE SUBCUT SCH (09:41)
[2021-02-05] MEDS: BALSAM PERU/CASTOR OIL 60 GM OINT...G. TP SCH (09:41)
[2021-02-05 11:27] VITALS: BP_SYST 124
--- NOTE | 2021-02-05 11:27 | NUR ---
CM note: per Pulmo's note: CT chest reviewed minimal effusion and mostly dense consolidation LLB. Plan: Will DC chest tube once output <100ml / 24hrs .
[2021-02-05 15:36] VITALS: BP_SYST 126
[2021-02-05] MEDS: NACL 0.9% 1,000 ML IV SCH (18:07)
--- NOTE | 2021-02-05 19:26 | NUR ---
CLOSING NOTES: PATIENT RESTING IN BED. NO SIGNS OF ACUTE DISTRESS NOTED. FALL AND SAFETY MEASURES RENDERED. BED LOCKED, ALARM ON AND IN LOWEST POSITION. IV AND G TUBE INFUSING WELL.
[2021-02-06] VITALS (9 sets, daily range): BP systolic 121–152
[2021-02-06] MEDS: PIPERACILLIN/TAZO 3.375/DEX-IS 50 ML IV SCH ×2 (00:26→06:49)
--- NOTE | 2021-02-06 03:31 | NUR ---
I RECEIVD PT IN BED AT 1900 AWAKE NON VERBAL , VSS , SEEMS COMFORTALE , ON O2 BY T BAR DIMINISHED LUNG SOUND , SUCTION PRN THICK YELLOW SPUTUM , ON IV FLUIDS RUNNING SITE IS INTACT , AT O300 WE GAVE HIM A BED BATH LINEN WAS CHANGED ,POSITION CHANGED
--- NOTE | 2021-02-06 08:00 | NUR ---
am notes pt un bed . awake. non verbal. on 2 l o2 with t bar. hob elevated.res even and unlabored. not in acuted sitress. g tube fedding continue as ordered. no residual noted. left chest tube intact. no air leak noted.folwy cath draining yellow color urine.iv left ra ivf infusing well. no s/s of infiltartion noted.safety/aspiration and contact. precautions in place. call light within reach. no s/s of pain or distress. noted. repositioned with pillow. will conitnue to monitor
[2021-02-06] MEDS: BALSAM PERU/CASTOR OIL 60 GM OINT...G. TP SCH (09:00)
[2021-02-06] MEDS: LINEZOLID 300 ML IV SCH ×2 (10:36→22:26)
[2021-02-06] MEDS: ASCORBIC ACID 500 MG TABLET PO SCH (10:36)
[2021-02-06] MEDS: CHOLECALCIFEROL (VITAMIN D3) 2,000 UNIT TABLET PO SCH (10:36)
[2021-02-06] MEDS: PANTOPRAZOLE SODIUM 40 MG/VIAL (PROTONIX) IVP SCH (10:36)
[2021-02-06] MEDS: ENOXAPARIN SODIUM 40 MG/0.4 ML SYRINGE SUBCUT SCH (10:38)
[2021-02-06 17:14] LABS: BASOPHILS # (AUTO) 0.1 K/uL (0.0-0.2); BASOPHILS % (AUTO) 0.4 % (0.0-2.0); EOSINOPHILS # (AUTO) 0.1 K/uL (0.0-0.4); EOSINOPHILS % (AUTO) 0.3 % (0.0-4.0); HEMATOCRIT 34.3 % (36-54); HEMOGLOBIN 11.3 g/dL (14.0-18.0); MEAN CORPUSCULAR HEMOGLOBIN 30 pg (27-31); MEAN CORPUSCULAR HGB CONC 33 % (32-36); MEAN CORPUSCULAR VOLUME 91 fL (79.0-98.0); MONOCYTES # (AUTO) 1.1 K/uL (0.0-1.0); MONOCYTES % (AUTO) 4.5 % (1.7-9.3); NEUTROPHILS # (AUTO) 21.9 K/uL (1.8-7.7); NEUTROPHILS % (AUTO) 90.8 % (40.0-70.0); PLATELET COUNT (AUTO) 548 K/uL (130-430); RED BLOOD CELL COUNT(AUTO) 3.76 MIL/uL (4.2-6.2); RED CELL DISTRIBUTION WIDTH 17.2 % (9.0-15.0); WHITE BLOOD COUNT (AUTO) 24.1 K/uL (4.8-10.8)
[2021-02-06 17:33] LABS: CALCIUM 8.4 mg/dL (8.4-11.0); CREATININE 0.34 mg/dL (0.55-1.30); POTASSIUM 3.9 mmol/L (3.5-5.1)
--- NOTE | 2021-02-06 18:37 | NUR ---
closing notes pt un bed . awake. non verbal. on 2 l o2 with t bar. hob elevated.res even and unlabored. not in acute distress. g tube feeding continue as ordered. no residual noted. left chest tube intact. no air leak noted.Escamilla cath draining yellow color urine.iv left ra ivf infusing well. no s/s of infiltartion noted.safety/aspiration and contact. precautions in place. call light within reach. no s/s of pain or distress. noted.pt cleaned had bm. linen changed repositioned with pillow. will conitnue to monitor
[2021-02-06] MEDS: CEFEPIME 0.5 GM in D5W 50 ML IV SCH (21:31)
[2021-02-06] MEDS: NACL 0.9% 1,000 ML IV SCH (21:32)
--- NOTE | 2021-02-07 07:15 | NUR ---
HANDOFF WITH LIZZIE Keita RN. GABRIELA GARCIA RN
[2021-02-07 07:40] LABS: BASOPHILS # (AUTO) 0.2 K/uL (0.0-0.2); EOSINOPHILS % (AUTO) 0.2 % (0.0-4.0); HEMATOCRIT 34.1 % (36-54); HEMOGLOBIN 11.2 g/dL (14.0-18.0); LYMPHOCYTES % (AUTO) 5.7 % (20.5-51.5); MEAN CORPUSCULAR HEMOGLOBIN 30 pg (27-31); MEAN CORPUSCULAR HGB CONC 33 % (32-36); MEAN CORPUSCULAR VOLUME 91 fL (79.0-98.0); MONOCYTES # (AUTO) 0.8 K/uL (0.0-1.0); MONOCYTES % (AUTO) 4.6 % (1.7-9.3); NEUTROPHILS # (AUTO) 15.6 K/uL (1.8-7.7); NEUTROPHILS % (AUTO) 88.5 % (40.0-70.0); PLATELET COUNT (AUTO) 489 K/uL (130-430); RED BLOOD CELL COUNT(AUTO) 3.76 MIL/uL (4.2-6.2); RED CELL DISTRIBUTION WIDTH 17.8 % (9.0-15.0); WHITE BLOOD COUNT (AUTO) 17.6 K/uL (4.8-10.8)
[2021-02-07 07:50] LABS: CALCIUM 8.9 mg/dL (8.4-11.0); CREATININE 0.28 mg/dL (0.55-1.30); POTASSIUM 3.7 mmol/L (3.5-5.1)
[2021-02-07 08:08] VITALS: BP_SYST 123
--- NOTE | 2021-02-07 08:09 | NUR ---
OPENING NOTES: PATIENT RESTING IN BED. HOB ELEVATED. BREATHING EVEN AND NON LABORED TO O2 AT 2 L/ T-BAR. FALL,SAFETY AND ASPIRATION PRECAUTION REINFORCED. BED LOCKED ALARM ON AND IN LOWEST POSITION. CALL LIGHT WITHIN REACH. CHEST TUBE IN PLACED. HALEY CATHETER IN PLACED AND DRAINING BY GRAVITY. WILL CONTINUE MONITOR PATIENT.
[2021-02-07] MEDS: CHOLECALCIFEROL (VITAMIN D3) 2,000 UNIT TABLET PO SCH (09:29)
[2021-02-07] MEDS: ASCORBIC ACID 500 MG TABLET PO SCH (09:29)
[2021-02-07] MEDS: PANTOPRAZOLE SODIUM 40 MG/VIAL (PROTONIX) IVP SCH (09:29)
[2021-02-07] MEDS: BALSAM PERU/CASTOR OIL 60 GM OINT...G. TP SCH (09:30)
[2021-02-07] MEDS: ENOXAPARIN SODIUM 40 MG/0.4 ML SYRINGE SUBCUT SCH (09:31)
[2021-02-07] MEDS: CEFEPIME 0.5 GM in D5W 50 ML IV SCH ×2 (09:32→21:18)
[2021-02-07] MEDS: LINEZOLID 300 ML IV SCH (09:33)
[2021-02-07 12:23] VITALS: BP_SYST 127
[2021-02-07 16:00] VITALS: BP_SYST 116
--- NOTE | 2021-02-07 16:00 | NUR ---
RN notes: G TUBE FLUSHED. INCONTINENT CARE DONE. NO S/S OF ACUTE DISTRESS NOTED.
[2021-02-07] MEDS: NACL 0.9% 1,000 ML IV SCH (17:18)
--- NOTE | 2021-02-07 18:46 | NUR ---
CLOSING NOTES: PATIENT RESTING IN BED. HOB ELEVATED. NO S/S OF ACUTE DISTRESS NOTED. IV AND G TUBE INFUSING WELL. CHEST TUBE IN PLACED AND PATENT. BED LOCKED, ALARM ON AND IN LOWEST POSITION. FALL, SAFETY AND ASPIRATION MEASURES PROVIDED. WILL CONTINUE MONITOR UNTIL ENDORSE TO LOCAL OWNER OPERATOR TRUCK DRIVER RN.
[2021-02-07 19:53] VITALS: BP_SYST 134
[2021-02-08 01:16] VITALS: BP_SYST 114
[2021-02-08 06:35] LABS: BASOPHILS # (AUTO) 0.1 K/uL (0.0-0.2); BASOPHILS % (AUTO) 0.8 % (0.0-2.0); EOSINOPHILS % (AUTO) 0.3 % (0.0-4.0); HEMATOCRIT 34.1 % (36-54); HEMOGLOBIN 11.3 g/dL (14.0-18.0); LYMPHOCYTES # (AUTO) 0.8 K/uL (1.0-5.5); LYMPHOCYTES % (AUTO) 6.4 % (20.5-51.5); MEAN CORPUSCULAR HEMOGLOBIN 30 pg (27-31); MEAN CORPUSCULAR HGB CONC 33 % (32-36); MEAN CORPUSCULAR VOLUME 91 fL (79.0-98.0); MONOCYTES # (AUTO) 0.7 K/uL (0.0-1.0); MONOCYTES % (AUTO) 5.8 % (1.7-9.3); NEUTROPHILS # (AUTO) 10.2 K/uL (1.8-7.7); NEUTROPHILS % (AUTO) 86.7 % (40.0-70.0); PLATELET COUNT (AUTO) 427 K/uL (130-430); RED BLOOD CELL COUNT(AUTO) 3.76 MIL/uL (4.2-6.2); RED CELL DISTRIBUTION WIDTH 17.5 % (9.0-15.0); WHITE BLOOD COUNT (AUTO) 11.7 K/uL (4.8-10.8)
[2021-02-08 06:38] LABS: CREATININE 0.37 mg/dL (0.55-1.30); POTASSIUM 3.9 mmol/L (3.5-5.1)
--- NOTE | 2021-02-08 07:10 | NUR ---
RCV'D PT ON T-BAR 2 LITERS FIO2 28% . PT IS TRACHED WITH PORTEX 7. TRACH IS IN PLACE AND SECURED WITH TRACH TIE. NO SOB OR DISTRESS NOTED. BREATH SOUNDS CLEAR DIMINISHED. WILL CONTINUE TO MONITOR PATIENT.
--- NOTE | 2021-02-08 07:34 | NUR ---
HANDOFF WITH CARLIN GARCIA. GABRIELA GARCIA RN Addendum: 02/08/21 at 1437 by [facility] Windy GILLIS INCORRECT CHARTING; ESTUARDO GARCIA
[2021-02-08 08:00] VITALS: BP_SYST 127
--- NOTE | 2021-02-08 08:00 | NUR ---
OPENING NOTES AWAKE, NONVERBAL AND NON-RESPONSIVE. ON O2 SUPPORT VIA TRACH TO T-BAR AT 2 LITERS. NO SIGN OF DISTRESS. ONGOING TUBE FEEDING VIA G-TUBE; ABOUT 5 ML RESIDUAL RETURNED. IV INTACT ON LEFT ARM. CHEST TUBE ON LEFT LUNG AREA CONNECTED TO CONTINUOS SUCTION; SCANT SEROSANGUINEOUS DRAINAGE. HALEY CATHETER WITH YELLOWISH URINE. SAFETY CHECKS DONE. WILL CLOSELY MONITOR.
--- NOTE | 2021-02-08 09:30 | NUR ---
WOUND CARE BOWEL MOVEMENT NOTED. CLEANED AND REPOSITIONED. WOUND CARE DONE ON SACRAL AREA. SAFETY CHECKS DONE.
[2021-02-08] MEDS: BALSAM PERU/CASTOR OIL 60 GM OINT...G. TP SCH (09:49)
[2021-02-08] MEDS: CHOLECALCIFEROL (VITAMIN D3) 2,000 UNIT TABLET PO SCH (09:49)
[2021-02-08] MEDS: PANTOPRAZOLE SODIUM 40 MG/VIAL (PROTONIX) IVP SCH (09:49)
[2021-02-08] MEDS: CEFEPIME 0.5 GM in D5W 50 ML IV SCH ×2 (09:49→20:35)
[2021-02-08] MEDS: ASCORBIC ACID 500 MG TABLET PO SCH (09:49)
[2021-02-08] MEDS: ENOXAPARIN SODIUM 40 MG/0.4 ML SYRINGE SUBCUT SCH (09:51)
[2021-02-08 11:21] VITALS: BP_SYST 119
--- NOTE | 2021-02-08 12:18 | NUR ---
GTUBE FLUSH GTUBE FLUSH GIVEN. REPOSITIONED. SAFETY CHECKS DONE.
--- NOTE | 2021-02-08 13:40 | NUR ---
WOUND EVALUATION: Late note for 02/08/21 at 1340 secondary to patient care. Patient received in a Josh Bed with a mattress, awake, alert, and oriented. Patient is unable to turn independently. Ceferino Score is a 14. Past Medical History: Chronic Respiratory Failure, Dysphagia, COVID Pneumonia, Sepsis, suicide attempt, Traumatic Brain Injury, tube feeding, history of lung abscess. Admitted with Pneumonia. Recent Labs: WBC 11.7, RBC 3.76, hemoglobin 11.3, hematocrit 34.1, CO2 30, BUN 7, creatinine 0.37, GFR 296, glucose 115, albumin 1.4. Microbiology: Blood culture results x2 negative. Intrinsic factors that delay wound healing: Chronic Respiratory Failure, Dysphagia, COVID Pneumonia, Sepsis, Hypoalbuminemia. Extrinsic factors that delay wound healing: Immobility. Wound Assessment: Sacral area: Three small areas of dark purple ecchymosis in a near vertical linear fashion. Some DTI sites have opened. 1. Upper Sacral area: DTI, present on admission. Site now has 100% pink scar tissue, resolved. 2. Sacral area, inferior to site 1: DTI, present on admission. Site now has a Stage II pressure ulcer with 100% pink tissue. No odor, no drainage. Periwound intact. Wound measures 0.9 cm x 0.4 cm. 3. Sacral area, inferior to site 2: DTI, present on admission. Site now has an unstageable pressure ulcer with 40% red tissue, 40% yellow tissue, 20% dark discolored tissue. No odor, no drainage. Periwound intact. Wound measures 1.4 cm x 1.5 cm. Recommend continue: Cleanse wounds with normal saline. Apply moisture barrier cream to periwounds. Apply Venelex ointment to wound beds. Cover with Sacral foam dressing. Perform wound care daily, and as needed for dressing soiling or dislodgment. 4. Left Buttock area: Wound, present on admission. Site now has 100% red tissue. No odor, no drainage. Periwound intact wound measures 0.4 cm x 0.3 cm Recommend: Cleanse involved areas with normal saline. Gently pat dry. Apply Hydraguard barrier cream to involved areas. Cover sites with Sacral foam dressing. Perform site care daily, and as needed for dressing soiling or dislodgment. 5. Right Anterior Lateral Shoulder: Wound of unknown origin, present on admission. Wound bed has 5% dark discoloration, 30% pink tissue, 5% yellow tissue, 60% red tissue. No odor, no drainage. Periwound intact. Wound measures 6.0 cm x 4.7 cm. Recommend continue: Cleanse wound with normal saline. Apply moisture barrier cream to periwound. Apply Venelex ointment to wound bed. Cover with foam dressing. Perform wound care daily, and as needed for dressing soiling or dislodgment. 6. Right Lateral Head: Wound of unknown origin, present on admission. Wound bed has 100% pink tissue. Site measures 2.3 cm x 4.0 cm. Recommend: Cleanse involved area with normal saline. Pat dry. Apply moisture barrier cream to site. Cover site with foam dressing. Perform site care daily, and as needed for dressing soiling or dislodgment. 7. Anterior/Medial Bridge of Nose: Wound, present on admission. Site now has 100% pink scar tissue. Site has resolved. Recommend: No dressing needed. Continue to monitor site every shift. 8. Left Posterior Shoulder, Medial to site 9: Brown scab. No odor, no drainage. Periwound intact. Dry, stable. Site measures 1.2 cm x 0.8 cm. 9. Left Posterior Shoulder: Lateral to site 8 Brown scab. No odor, no drainage. Periwound intact. Dry, stable. Site measures 0.4 cm x 1.0 cm. Also recommend continue: Place pillow underneath patient's sacral-coccygeal area in a horizontal fashion. Reposition patient side to side only every 2 hours by placing 1 pillow underneath left side for 2 hours, then switching pillow to underneath right side every 2 hours Off-load pressure areas with pillows for pressure re-distribution. Offload, elevate and float bilateral heels with one pillow lengthwise under each extremity at all times (ensure that heels float). Perform skin care and monitor skin integrity Q shift. Use moisture barrier cream on buttocks and other moisture susceptible areas QID and as needed for soiling. Maintain patient on a low air-loss mattress. Addendum: 02/15/21 at 0839 by Horace Pressley RN Addendum: Late note. Dr. Campbell was informed about the three DTI areas (present on admission) that had opened (please see sites 1-3 above).
--- NOTE | 2021-02-08 13:40 | NUR ---
WOUND RE-EVAL WOUND RE-EVALUATION DONE BY CARLIN ESPOSITO. PHOTOS TAKEN. WOUND CARE DONE ON RIGHT SHOULDER. SAFETY CHECKS DONE. WILL MONITOR.
[2021-02-08 15:31] VITALS: BP_SYST 121
[2021-02-08] MEDS: NACL 0.9% 1,000 ML IV SCH (17:56)
--- NOTE | 2021-02-08 18:48 | NUR ---
CLOSING NOTES RESTING. TOLERATING G-TUBE FEEDING. IV INFUSING WELL. SCANT DRAINAGE FROM CHEST TUBE. ALL NEEDS ATTENDED. SAFETY CHECKS DONE. WILL ENDORSE TO NIGHT NURSE.
[2021-02-08 19:42] VITALS: BP_SYST 169
[2021-02-09 00:35] VITALS: BP_SYST 126
--- NOTE | 2021-02-09 04:26 | NUR ---
RT NOTES TRACH CARE DONE. NO RESP DISTRESS NOTED.
[2021-02-09 04:45] VITALS: BP_SYST 123
[2021-02-09 06:44] LABS: BASOPHILS # (AUTO) 0.1 K/uL (0.0-0.2); BASOPHILS % (AUTO) 0.8 % (0.0-2.0); EOSINOPHILS # (AUTO) 0.1 K/uL (0.0-0.4); EOSINOPHILS % (AUTO) 0.5 % (0.0-4.0); HEMATOCRIT 33.8 % (36-54); HEMOGLOBIN 11.1 g/dL (14.0-18.0); LYMPHOCYTES # (AUTO) 0.7 K/uL (1.0-5.5); LYMPHOCYTES % (AUTO) 6.9 % (20.5-51.5); MEAN CORPUSCULAR HEMOGLOBIN 30 pg (27-31); MEAN CORPUSCULAR HGB CONC 33 % (32-36); MEAN CORPUSCULAR VOLUME 92 fL (79.0-98.0); MONOCYTES # (AUTO) 0.7 K/uL (0.0-1.0); MONOCYTES % (AUTO) 6.6 % (1.7-9.3); NEUTROPHILS % (AUTO) 85.2 % (40.0-70.0); PLATELET COUNT (AUTO) 402 K/uL (130-430); RED BLOOD CELL COUNT(AUTO) 3.69 MIL/uL (4.2-6.2); RED CELL DISTRIBUTION WIDTH 17.5 % (9.0-15.0); WHITE BLOOD COUNT (AUTO) 10.6 K/uL (4.8-10.8)
[2021-02-09 06:49] LABS: CALCIUM 8.8 mg/dL (8.4-11.0); CREATININE 0.27 mg/dL (0.55-1.30); POTASSIUM 3.9 mmol/L (3.5-5.1)
--- NOTE | 2021-02-09 07:42 | NUR ---
HANDOFF TO CARLIN THURMAN. GABRIELA GARCIA RN Addendum: 02/09/21 at 0743 by [facility] Windy GILLIS INCORRECT CHARTING, HANDOFF WITH SAPNA
[2021-02-09 08:13] VITALS: BP_SYST 125
[2021-02-09] MEDS: PANTOPRAZOLE SODIUM 40 MG/VIAL (PROTONIX) IVP SCH (08:22)
[2021-02-09] MEDS: ASCORBIC ACID 500 MG TABLET PO SCH (08:22)
[2021-02-09] MEDS: CHOLECALCIFEROL (VITAMIN D3) 2,000 UNIT TABLET PO SCH (08:22)
[2021-02-09] MEDS: ENOXAPARIN SODIUM 40 MG/0.4 ML SYRINGE SUBCUT SCH (08:23)
--- NOTE | 2021-02-09 08:39 | NUR ---
am notes pt in bed . non verbal. res even and unlabored. trach with t bar 2 lo2. saturation 98%. no s/s of res distress noted. g tube intact. no residual noted. flushed well. tube feeding conitnue as ordered . hob elevated 45 degree pt tolerating well. iv intact. flushed well. no s/s of infiltration noted. safety/fall/contact/aspiration precautions in place. repositioned with pillow.needs attended. will continue to monitor
--- NOTE | 2021-02-09 09:00 | NUR ---
MEDS PT STABLE DUE MEDS GIVEN ORDERED. CHEST TUBE INTACT. CONNECTED TO LOW SUCTION . NO AIR LEAK NOTED . HOB ELEVATED . WILL CONTINUE TO MONITOR
[2021-02-09] MEDS: CEFEPIME 0.5 GM in D5W 50 ML IV SCH ×2 (09:37→20:28)
[2021-02-09 11:21] VITALS: BP_SYST 131
[2021-02-09] MEDS: BALSAM PERU/CASTOR OIL 60 GM OINT...G. TP SCH (13:30)
--- NOTE | 2021-02-09 13:30 | NUR ---
LUNCH ROUNDS: WOUND CARE PERFORMED ON RIGHT AND LEFT SHOULDER, AND SACRAL ARE PER ORDERS, CLEANED WITH NS, VENELEX APPLIED TO WOUND, AND BARRIER CREAM APPLIED TO OUTER WOUND, THEN COVERED WITH FOAM DRESSING. TUBE FEEDING RUNNING AT 50ML/H FLUSHED WELL, PT TOLERATING WELL. SUCTIONED TRACH AND MOUTH, SPUTUM WHITE COLOR. CHEST TUBE INTACT .NO AIR LEAK NOTED. PUT CLEAN SHEETS ON, AND WIPED FACE, PT REPOSITION WITH PILLOWS. NO S/S OF RESPIRATORY DISTRESS NOTED.
[2021-02-09 15:31] VITALS: BP_SYST 124
--- NOTE | 2021-02-09 16:05 | NUR ---
MD ROUND: DR VIEIRA HERE, UPDATED PT CONDITION AND PLAN OF CARE.
--- NOTE | 2021-02-09 16:19 | NUR ---
D/C CHEST TUBE SUCTION: D/C CHEST TUBE SUCTION PER MD ORDER, NO S/S OF RESPIRATORY DISTRESS. HOB ELEVATED, SATURATION 98% ON 2L TRACH WITH T BAR. WILL CONTINUE TO MONITOR.
[2021-02-09] MEDS ORDERED: BALSAM PERU/CASTOR OIL 60 GM OINT...G. TP SCH (18:30)
--- NOTE | 2021-02-09 19:15 | NUR ---
CLOSING NOTES TOOK PT TO CT SCAN WITH RT TRANSPORT MONITOR ON.O2 TRANSPORT. PT BACK IN ROOM AFTER CT SCAN . PT STABLE. NO S/S OF RES DISTRESS NOTED. IVF INFUSING WELL.G TUBE FEEDING RECONNECTED . FLUSHED WELL. CHEST TUNE INTACT TO GRAVITY.NO AIR LEAK NOTED. SAFETY/FALL/ CONTACT PRECAUTIONS IN PLACE. RT WITH PT. DOING SUCTION..REPORT INDORSED TO JAE RN.
[2021-02-09 20:10] VITALS: BP_SYST 131
[2021-02-09] MEDS: NACL 0.9% 1,000 ML IV SCH (20:28)
[2021-02-10 01:17] VITALS: BP_SYST 130
--- NOTE | 2021-02-10 02:25 | NUR ---
HANDOFF WITH CARLIN STEPHENS. GABRIELA GARCIA RN
--- NOTE | 2021-02-10 06:39 | NUR ---
CLOSING NOTE PATIENT IN BED, EYES CLOSED, RESTING. NO S/S OF ACUTE DISTRESS NOTED. BREATHING EVEN AND UNLABORED. HOB RAISED, TRACH TO TBAR ON 2L OF OXYGEN. IVF AND TUBE FEEDING INFUSING WELL. IV SITES ARE PATENT, NO SIGNS OF INFILTRATION OR INFECTION NOTED. HALEY ATTACHED, SECURED AND DRAINING BY GRAVITY. CHEST TUBE INTACT, CLEAN, AND DRY. ALL NEEDS MET THROUGHOUT SHIFT. FALL, SAFETY, AND ISOLATION PRECAUTIONS MAINTAINED THROUGHOUT SHIFT. WILL CONTINUE TO MONITOR UNTIL PATIENT CARE IS ENDORSED TO ONCOMING DAYSHIFT NURSE.
[2021-02-10 07:32] LABS: BASOPHILS # (AUTO) 0.1 K/uL (0.0-0.2); BASOPHILS % (AUTO) 0.9 % (0.0-2.0); EOSINOPHILS % (AUTO) 0.5 % (0.0-4.0); HEMOGLOBIN 11.3 g/dL (14.0-18.0); LYMPHOCYTES # (AUTO) 0.7 K/uL (1.0-5.5); MEAN CORPUSCULAR HEMOGLOBIN 30 pg (27-31); MEAN CORPUSCULAR HGB CONC 33 % (32-36); MEAN CORPUSCULAR VOLUME 91 fL (79.0-98.0); MONOCYTES # (AUTO) 0.5 K/uL (0.0-1.0); MONOCYTES % (AUTO) 5.1 % (1.7-9.3); NEUTROPHILS % (AUTO) 86.5 % (40.0-70.0); PLATELET COUNT (AUTO) 379 K/uL (130-430); RED BLOOD CELL COUNT(AUTO) 3.72 MIL/uL (4.2-6.2); RED CELL DISTRIBUTION WIDTH 18.4 % (9.0-15.0); WHITE BLOOD COUNT (AUTO) 10.4 K/uL (4.8-10.8)
[2021-02-10 07:59] LABS: CALCIUM 8.9 mg/dL (8.4-11.0); CREATININE 0.3 mg/dL (0.55-1.30); POTASSIUM 3.9 mmol/L (3.5-5.1)
[2021-02-10 08:12] VITALS: BP_SYST 123
--- NOTE | 2021-02-10 08:14 | NUR ---
OPENING NOTE PATIENT FOUND IN BED RESTING AND EXPRESSES NO DISCOMFORT OR PAIN AT THIS TIME. VS OBTAINED.. BED LOCKED AND IN LOWEST POSITION, TWO RAILS UP AND CALL LIGHT IN REACH. SAFETY, FALL, RESPIRATORY AND ASPIRATION PRECAUTIONS IN PLACE. HALEY, IV AND GTUBE PATENT. WILL CONTINUE TO MONITOR.
[2021-02-10] MEDS: CHOLECALCIFEROL (VITAMIN D3) 2,000 UNIT TABLET PO SCH (09:07)
[2021-02-10] MEDS: ASCORBIC ACID 500 MG TABLET PO SCH (09:08)
[2021-02-10] MEDS: BALSAM PERU/CASTOR OIL 60 GM OINT...G. TP SCH (09:08)
[2021-02-10] MEDS: ENOXAPARIN SODIUM 40 MG/0.4 ML SYRINGE SUBCUT SCH (09:09)
[2021-02-10] MEDS: CEFEPIME 0.5 GM in D5W 50 ML IV SCH ×2 (10:09→21:02)
[2021-02-10] MEDS: PANTOPRAZOLE SODIUM 40 MG/VIAL (PROTONIX) IVP SCH (10:10)
[2021-02-10 11:22] VITALS: BP_SYST 130
--- NOTE | 2021-02-10 11:38 | NUR ---
Nursing note PATIENT IN BED RESTING AND EXPRESSES NO PAIN OR DISCOMFORT. GTUBE PLACEMENT CONFIRMED, AND NO RESIDUAL OBTAINED. GTUBE FLUSHED WITH 100ML WATER AND FEEDING CHANGED. WILL CONTINUE TO MONITOR.
--- NOTE | 2021-02-10 15:30 | NUR ---
NURSING NOTE PATIENT TURNED, REPOSITIONED AND DEE CARE PROVIDED. WOUND CARE ALSO DONE AT THIS TIME. WILL CONTINUE TO MONITOR.
[2021-02-10 15:42] VITALS: BP_SYST 120
--- NOTE | 2021-02-10 17:00 | NUR ---
NURSING NOTE PATIENT GTUBE PLACEMENT CONFIRMED AND FLUSHED WITH 100ML WATER. PATIENT ALSO REPOSITIONED AT THIS TIME.
--- NOTE | 2021-02-10 18:29 | NUR ---
CLOSING NOTE PATIENT IN BED SLEEPING AND EXPRESSES NO PAIN OR DISCOMFORT AT THIS TIME. IV, GTUBE, HALEY CATHETER AND CHEST TUBE IS PATENT AND INTACT.BED IS LOCKED AND IN LOWEST POSITION, TWO RAILS ARE UP AND CALL LIGHT IN REACH.ASPIRATION , RESPIRATORY, FALL, AND SAFETY PRECAUTIONS IN PLACE. ALL NEEDS MET THROUGHOUT SHIFT.WILL ENDORSE TO HULLER OPERATOR.
[2021-02-10] MEDS: NACL 0.9% 1,000 ML IV SCH (18:46)
[2021-02-10 19:38] VITALS: BP_SYST 127
[2021-02-11] VITALS (7 sets, daily range): BP systolic 113–128
--- NOTE | 2021-02-11 07:08 | NUR ---
HANDOFF WITH CINTIA Mcmahan RN. GABRIELA GARCIA RN
[2021-02-11 07:39] LABS: BASOPHILS # (AUTO) 0.1 K/uL (0.0-0.2); BASOPHILS % (AUTO) 0.8 % (0.0-2.0); EOSINOPHILS % (AUTO) 0.3 % (0.0-4.0); HEMOGLOBIN 11.1 g/dL (14.0-18.0); LYMPHOCYTES # (AUTO) 0.7 K/uL (1.0-5.5); LYMPHOCYTES % (AUTO) 6.3 % (20.5-51.5); MEAN CORPUSCULAR HEMOGLOBIN 31 pg (27-31); MEAN CORPUSCULAR HGB CONC 34 % (32-36); MEAN CORPUSCULAR VOLUME 91 fL (79.0-98.0); MONOCYTES # (AUTO) 0.7 K/uL (0.0-1.0); NEUTROPHILS % (AUTO) 85.6 % (40.0-70.0); PLATELET COUNT (AUTO) 363 K/uL (130-430); RED BLOOD CELL COUNT(AUTO) 3.63 MIL/uL (4.2-6.2); RED CELL DISTRIBUTION WIDTH 18.2 % (9.0-15.0); WHITE BLOOD COUNT (AUTO) 10.5 K/uL (4.8-10.8)
--- NOTE | 2021-02-11 09:02 | NUR ---
Chest tube removed by E Tailer Dr. Huff, kept with pressure dry dressing
[2021-02-11] MEDS: ASCORBIC ACID 500 MG TABLET PO SCH (09:06)
[2021-02-11] MEDS: CHOLECALCIFEROL (VITAMIN D3) 2,000 UNIT TABLET PO SCH (09:06)
[2021-02-11] MEDS: PANTOPRAZOLE SODIUM 40 MG/VIAL (PROTONIX) IVP SCH (09:06)
[2021-02-11] MEDS: CEFEPIME 0.5 GM in D5W 50 ML IV SCH ×2 (09:07→21:36)
[2021-02-11] MEDS: ENOXAPARIN SODIUM 40 MG/0.4 ML SYRINGE SUBCUT SCH (09:08)
[2021-02-11 09:18] LABS: CALCIUM 9.1 mg/dL (8.4-11.0); CREATININE 0.27 mg/dL (0.55-1.30); POTASSIUM 3.6 mmol/L (3.5-5.1)
[2021-02-11] MEDS: BALSAM PERU/CASTOR OIL 60 GM OINT...G. TP SCH (10:00)
--- NOTE | 2021-02-11 10:01 | NUR ---
Skin /Wound care completed tolerates well
--- NOTE | 2021-02-11 14:03 | NUR ---
Seen and examined by Dr. FARRIS , phone no., of DPOA given to MD to call for update regarding patient progress.
--- NOTE | 2021-02-11 14:56 | NUR ---
Nutrition F/U RD reviewed pt's current EMR record including diet Hx, physician notes, nursing notes, pertinent labs/meds/procedures, care trends, and care activity. Admission Dx: Pulmonary Abscess/COVID PMH: chronic respiratory failure. s/p feeding tube. Pt was also found w/ sepsis secondary to left lung abscess, COVID-19 infection with aspiration pneumonia, hyponatremia, moderate malnutrition, chronic respiratory failure, dysphagia, traumatic brain injury. SARS-CoV-2 Ag (Rapid) Positive 01/22 & (PCR) Negative 01/23 Current Diet Order/Nutrition Support: Glucerna 1.2 at 50 ml/hr, Free Water Flush: 100 Q6' via GT x10 days Subjective Info: RD rounded to pt's bedside, contact isolation precautions observed. TF was seen infusing as per physician order -- 276 ml infused, providing 331 kcal. Bedscale wt taken: 96.7# -- possible 8.3# wt fluctuation compared to documented wt of 105#/48 kg (01/24). Per EMR review, pt's chest tube was removed by service establishment attendant; TF Rate: 50 ml /; GRV: 0 ml 02/10; TF Intakes: 600 ml 02/11; Ceferino scale: 12; per [employer] note 02/08 reviewed, multiple DTI and wounds noted. Current TF prescription remains adequate/appropriate. Pertinent Medications: protonix IV, VIT D3, zinc, VIT C, lovenox Pertinent Labs: CRE 0.27 L, BG 100 H Height: 5'7"/67" Weight: 105#/47.6 kg (01/24) -- stable Body Mass Index: 16.44 kg/m2 Estimated Energy Expenditure (kcals/day) 0092-6045 kcal/day (30-35 kcal/kg CBW d/t malnutrition, wound healing) Estimated Protein Required (g/day) 58-72 gm/day (1.2-1.5 gm/kg CBW d/t malnutrition, wound healing) Estimated Fluid Required (l/day) 1.4-1.7 ml/day (1ml/kcal/day for maintenance) Problem/Etiology/Signs/Symptoms Increase calories and Protein intake R/T Moderate protein calorie malnutrition and dysphagia AEB BMI: 16.5kg/m2, multiple wounds, and is on enteral feeding. *ongoing, met Expected Outcomes/Goals - Monitor EN intake and tolerance w/ goal of pt meeting at least 80% of estimated nutritional needs, labs trending WNL, normal GI function, and skin integrity/wt maintenance Dietitian Recommendations * Recommend continuing Glucerna 1.2 at 50 ml/hr (goal rate), Lucho BID, Free water flush: 100 Q6' via GT Provides: 1600 kcal/day, 72 gm protein/day, 1366 ml free water/day Meets: 95% of upper end of estimated caloric needs and 107% of upper end of estimated protein needs Follow Up Low Risk: F/U in 7 days Addendum: 02/11/21 at [address] Pt appears to be tolerating TF well.
--- NOTE | 2021-02-11 15:03 | NUR ---
Dietitian Recommendations * Recommend continuing Glucerna 1.2 at 50 ml/hr (goal rate), Lucho BID, Free water flush: 100 Q6' via GT Provides: 1600 kcal/day, 72 gm protein/day, 1366 ml free water/day Meets: 95% of upper end of estimated caloric needs and 107% of upper end of estimated protein needs LP, RD Please refer to Nutrition F/U for details.
--- NOTE | 2021-02-11 15:21 | NUR ---
Rounds Patient wide awake with TV on semi fowlers no sign of acute distress, safety/aspiration precaution initiated.
--- NOTE | 2021-02-11 19:20 | NUR ---
Opening note Received SBAR report from CARLIN Guillen. Patient resting on ALIX mattress, no distress, his eyes are closed. He is on T-bar at 2L. He has G-tube feeding running at 50 ml/hr. Escamilla catheter drainage bag to gravity. IVF infusing via IV to right hand. Bed is locked in lowest position, side rails up and bed alarm on.
[2021-02-11] MEDS: NACL 0.9% 1,000 ML IV SCH (21:32)
--- NOTE | 2021-02-11 21:36 | NUR ---
Meds / IVF Assessed Gt and 30ml of residual was noted and returned. Scheduled medication given via G-tube; tolerated. Hung new bag of NS and also changed primary tubing. Administered scheduled antibiotic, Maxipime, and infusing well, no s/sx of infiltration noted.
--- NOTE | 2021-02-12 00:34 | NUR ---
rounds Patient was repositioned/turned. Administered FWF; 5ml residual noted and returned, tolerating feeding. Safety, isolation, and aspiration precautions in place.
--- NOTE | 2021-02-12 00:55 | NUR ---
rounds Patient was repositioned/turned. Administered FWF; 10ml residual noted and returned, tolerating feeding. Scheduled Robinul administered. Safety, isolation, and aspiration precautions in place.
[2021-02-12 07:39] LABS: BASOPHILS # (AUTO) 0.1 K/uL (0.0-0.2); BASOPHILS % (AUTO) 1.2 % (0.0-2.0); EOSINOPHILS # (AUTO) 0.1 K/uL (0.0-0.4); EOSINOPHILS % (AUTO) 0.8 % (0.0-4.0); HEMOGLOBIN 11.1 g/dL (14.0-18.0); LYMPHOCYTES # (AUTO) 0.8 K/uL (1.0-5.5); LYMPHOCYTES % (AUTO) 10.5 % (20.5-51.5); MEAN CORPUSCULAR HEMOGLOBIN 30 pg (27-31); MEAN CORPUSCULAR HGB CONC 34 % (32-36); MEAN CORPUSCULAR VOLUME 91 fL (79.0-98.0); MONOCYTES # (AUTO) 0.5 K/uL (0.0-1.0); MONOCYTES % (AUTO) 6.6 % (1.7-9.3); NEUTROPHILS # (AUTO) 6.1 K/uL (1.8-7.7); NEUTROPHILS % (AUTO) 80.9 % (40.0-70.0); PLATELET COUNT (AUTO) 306 K/uL (130-430); RED BLOOD CELL COUNT(AUTO) 3.64 MIL/uL (4.2-6.2); RED CELL DISTRIBUTION WIDTH 17.6 % (9.0-15.0); WHITE BLOOD COUNT (AUTO) 7.5 K/uL (4.8-10.8)
[2021-02-12 08:56] VITALS: BP_SYST 119
[2021-02-12 08:56] LABS: CALCIUM 8.8 mg/dL (8.4-11.0); CREATININE 0.27 mg/dL (0.55-1.30); POTASSIUM 3.7 mmol/L (3.5-5.1)
[2021-02-12] MEDS: CEFEPIME 0.5 GM in D5W 50 ML IV SCH ×2 (09:03→21:53)
[2021-02-12] MEDS: ASCORBIC ACID 500 MG TABLET PO SCH (09:04)
[2021-02-12] MEDS: CHOLECALCIFEROL (VITAMIN D3) 2,000 UNIT TABLET PO SCH (09:04)
[2021-02-12] MEDS: ENOXAPARIN SODIUM 40 MG/0.4 ML SYRINGE SUBCUT SCH (09:04)
[2021-02-12] MEDS: PANTOPRAZOLE SODIUM 40 MG/VIAL (PROTONIX) IVP SCH (09:04)
[2021-02-12] MEDS: BALSAM PERU/CASTOR OIL 60 GM OINT...G. TP SCH (09:37)
--- NOTE | 2021-02-12 09:40 | NUR ---
Wound care completed tolerates well, repositioned keep both leg/heel floating
[2021-02-12 12:21] VITALS: BP_SYST 119
[2021-02-12 16:23] VITALS: BP_SYST 126
--- NOTE | 2021-02-12 16:30 | NUR ---
Rounds Patient awake watching TV , no sign of acute distress repositioned.
[2021-02-12] MEDS: NACL 0.9% 1,000 ML IV SCH (18:29)
--- NOTE | 2021-02-12 19:20 | NUR ---
Opening note Received patient resting on ALIX mattress, no distress, his eyes are closed. He is on T-bar at 2L. He has G-tube feeding running at 50 ml/hr. Escamilla catheter drainage bag to gravity. IVF infusing via IV to right hand. Bed is locked in lowest position, side rails up and bed alarm on.
[2021-02-12 20:08] VITALS: BP_SYST 117
[2021-02-13 00:11] VITALS: BP_SYST 117
--- NOTE | 2021-02-13 06:55 | NUR ---
Closing note; wound care Patient resting in comfortable position. No distress, nonlabored breathing. Wound care done. Safety, isolation and aspiration precautions in place.
--- NOTE | 2021-02-13 07:50 | NUR ---
Opening note Patient is laying in bed A&O x0, body language does not express pain or discomfort. No signs or symptoms of respiratory distress tolerating 2L on T-BAR. IV is infusing no signs or symptoms of infiltration. Unable to educate on plan of care and call light system due to cognitive status. Bed is in lowest position, contact, fall and aspiration precautions are in place. will continue to monitor.
[2021-02-13 08:00] VITALS: BP_SYST 119
[2021-02-13] MEDS: PANTOPRAZOLE SODIUM 40 MG/VIAL (PROTONIX) IVP SCH (08:06)
[2021-02-13] MEDS: CHOLECALCIFEROL (VITAMIN D3) 2,000 UNIT TABLET PO SCH (08:06)
[2021-02-13] MEDS: ASCORBIC ACID 500 MG TABLET PO SCH (08:06)
[2021-02-13] MEDS: ENOXAPARIN SODIUM 40 MG/0.4 ML SYRINGE SUBCUT SCH (08:10)
[2021-02-13] MEDS: BALSAM PERU/CASTOR OIL 60 GM OINT...G. TP SCH (08:11)
--- NOTE | 2021-02-13 08:15 | NUR ---
MD rounds Dr. Campbell assessed patient, and is ok with patient being discharged back to SNF.
[2021-02-13 09:55] VITALS: BP_SYST 119
--- NOTE | 2021-02-13 10:18 | NUR ---
DISCHARGE PLANNING Order to dc back to [facility]. Faxed to [facility], isi Tomlinson at [facility] ph [phone], states will have DON review & call me. Addendum: 02/13/21 at 1216 by Dimple Kaiser RN Received call back from Sujit at [facility], pt accepted back, going to room 30B, report [phone]. Called & lt msg with father Urban Mcdaniels, ph [phone]. Set up transport with [facility], ph [phone] confirm #[phone], asked for 2pm tack picker, they will call g station with actual time. Updated charge nurse. Packet to nsg station.
[2021-02-13 12:00] VITALS: BP_SYST 122
--- NOTE | 2021-02-13 14:35 | NUR ---
D/C Patient Patients EMT given medication reconciliation form and D/C instructions. Exit Care provided. Pee Garcia RN given report and verbalized understanding. Transferred via gurney for discharge to Pee Garcia. Patient in stable condition, ID band removed. IV catheter removed, intact and dressing applied, no active bleeding. All belongings sent with patient.
== END 2021-02-13 14:35 | DRG 720 ==
LOC: SED 13:07 → STU 18:37
PROVIDERS: ADMIT Hospitalist; ATTEND Hospitalist
PROC: 0W9B30Z Drainage of Left Pleural Cavity with Drainage Device, Percutaneous Approach (ICD-10-PCS; principal; 2021-01-25)
PROC: 3E0L3GC Introduction of Other Therapeutic Substance into Pleural Cavity, Percutaneous Approach (ICD-10-PCS; 2021-01-29)
PROC: 5A1935Z Respiratory Ventilation, Less than 24 Consecutive Hours (ICD-10-PCS; 2021-01-29)
DX: A41.9 Sepsis, unspecified organism (principal); J69.0 Pneumonitis due to inhalation of food and vomit; J86.9 Pyothorax without fistula; J96.21 Acute and chronic respiratory failure with hypoxia; G93.1 Anoxic brain damage, not elsewhere classified; G82.50 Quadriplegia, unspecified; E43 Unspecified severe protein-calorie malnutrition; R65.20 Severe sepsis without septic shock; Z20.822 Contact with and (suspected) exposure to COVID-19; E87.1 Hypo-osmolality and hyponatremia; R13.10 Dysphagia, unspecified; Z87.820 Personal history of traumatic brain injury; Z91.51 Personal history of suicidal behavior; Z79.899 Other long term (current) drug therapy; Z68.1 Body mass index [BMI] 19.9 or less, adult; Z99.11 Dependence on respirator [ventilator] status; Z93.0 Tracheostomy status; Z79.82 Long term (current) use of aspirin; Z93.1 Gastrostomy status; Z74.01 Bed confinement status
CPT/HCPCS: 32555; 36415; 71045; 71250-TC; 71260-TC; 76376; 76604; 80048; 80053; 80202; 81000; 82947; 83605; 83615; 83735; 83986; 84100; 84157; 84484; 85007; 85025; 85027; 85379; 85610-TC; 85651-TC; 85730-TC; 86140; 87040-TC; 87070-TC; 87081; 87086; 89051-TC; 89060-TC; 93005; 94640; 94760; 96374; 96375; 99291; C1729; C1769; C9113; G0378; J0692; J1650; J2001; J2020; J2250; J2543; J2997; J3370; J7050; J7060; J7613; J8540; Q9967; U0003

== ENCOUNTER 2021-06-17 00:28 | Inpatient (IN) | payer MEDICAID, SELFPAY ==
[2021-06-17] VITALS (7 sets, daily range): BP systolic 101–138
[~2021-06-17] VITALS: Ht 160 cm; Wt 45.8 kg
[~2021-06-17 00:28] MED LIST: ALBU2.5V7 INH; ASCO500T20 PO; ASPI-1155 PO; BALS60OI TP; BISA5TAB10 PO; DOCU-144 PO; ERTA1VIA3 IV; FER300L PO; LACT1TAB10 PO; LOVI30 SQ; METO-442 PO; MULT-1089 PO; ZINC50TA69 PO; ZOLP5TAB2 PO
--- NOTE | 2021-06-17 00:29 | NUR ---
BIBA FOR FEVER PER SNF FACILITY, ARRIVED AFEBRILE WITH NO ACUTE DISTRESS OR DISCOMFORT
--- NOTE | 2021-06-17 00:41 | NUR ---
PATIENT BASELINE NONVERBAL AND NO MOVEMENT. PATIENT IS FROM SNF, CONTRACTED EXTREMITIES AND BED CONFINED. TRACHE IN PLACE AND SUPPLEMENTAL OXYGEN BEING ADMINISTERED 4LPM. REPORTS FEVER FROM SNF BUT IS AFEBRILE ON ARRIVAL
--- NOTE | 2021-06-17 00:48 | NUR ---
ER MD AT BEDSIDE, ADVISED TO ACTIVATE SEPSIS WORKUP PRECAUTION FOR RULE OUT FEVER. TO OBTAIN RECTAL TEMP WELL AND ASSESS FOR DU
[2021-06-17] MEDS ORDERED: PIPERACILLIN/TAZO 3.38 GM in D5W 50 ML IV ONE (01:00)
[2021-06-17] MEDS ORDERED: VANCOMYCIN HCL 1,000 MG in D5W 250 ML IV ONE (01:00)
[2021-06-17] MEDS ORDERED: NS 1000 ML IV.SOLN IV ONE (01:00)
--- NOTE | 2021-06-17 01:31 | NUR ---
RECTAL TEMP OBTAINED, 101F WITH NO SIGNS OF DU TO BACKSIDE.
[2021-06-17] MEDS ORDERED: PIPERACILLIN/TAZOBACTAM 3.375 GM/VIAL (ZOSYN) IV ONE (01:40)
[2021-06-17] MEDS ORDERED: VANCOMYCIN HCL 1000 MG/VIAL IV ONE (01:40)
--- NOTE | 2021-06-17 01:55 | NUR ---
ADDITIONAL IV ACCESS OBTAINED, BILATERAL 18G FOREARMS
[2021-06-17 02:00] LABS: INR 1.5 (0.80-1.20)
--- NOTE | 2021-06-17 02:12 | NUR ---
COVID SPECIMEN OBTAINED
[2021-06-17 02:25] LABS: CALCIUM 9.7 mg/dL (8.4-11.0); CREATININE 0.76 mg/dL (0.55-1.30); POTASSIUM 3.9 mmol/L (3.5-5.1)
[2021-06-17 02:26] LABS: BASOPHILS # (AUTO) 0.1 K/uL (0.0-0.2); BASOPHILS % (AUTO) 0.4 % (0.0-2.0); HEMATOCRIT 37.4 % (36-54); HEMOGLOBIN 12.7 g/dL (14.0-18.0); LYMPHOCYTES # (AUTO) 0.3 K/uL (1.0-5.5); LYMPHOCYTES % (AUTO) 1.5 % (20.5-51.5); MEAN CORPUSCULAR HEMOGLOBIN 32 pg (27-31); MEAN CORPUSCULAR HGB CONC 34 % (32-36); MEAN CORPUSCULAR VOLUME 94 fL (79.0-98.0); MONOCYTES # (AUTO) 0.7 K/uL (0.0-1.0); MONOCYTES % (AUTO) 3.1 % (1.7-9.3); NEUTROPHILS # (AUTO) 21.1 K/uL (1.8-7.7); PLATELET COUNT (AUTO) 209 K/uL (130-430); RED CELL DISTRIBUTION WIDTH 13.6 % (9.0-15.0); WHITE BLOOD COUNT (AUTO) 22.2 K/uL (4.8-10.8)
[2021-06-17 02:34] LABS: ALBUMIN 3.4 g/dL (3.4-4.8); TOTAL BILIRUBIN 1.5 mg/dL (0.0-1.0)
[2021-06-17] MEDS ORDERED: ACETAMINOPHEN 650 MG SUPP.RECT RC ONE (02:45)
[2021-06-17 02:57] LABS: BILIRUBIN,URINE NEGATIVE (NEGATIVE); BLOOD, URINE 3+ (NEGATIVE); CLARITY/URINE CLOUDY (CLEAR); COLOR,URINE YELLOW (YELLOW); GLUCOSE,URINE NEGATIVE (NEGATIVE); KETONES,URINE NEGATIVE (NEGATIVE); LEUKOCYTE ESTERASE ,URINE 2+ (NEGATIVE); NITRITE, URINE POSITIVE (NEGATIVE); PH,URINE 7.5 (5.0-8.0); PROTEIN URINE 2+ (NEGATIVE); UROBILINOGEN,URINE 0.2 (0.2-1.0)
[2021-06-17 03:47] LABS: BACTERIA,URINE MANY /HPF (None Seen); MUCUS,URINE None Seen /LPF (None Seen); URINE AMORPHOUS PHOSPHATES 2+ /HPF (None Seen); WBC,URINE 20-50 /HPF (0-3)
--- NOTE | 2021-06-17 08:08 | NUR ---
Pt's HR elevated to 163. Called Dr. Land and she stated to do another EKG and that she will put an order for a state attorney consult with Dr. Mccoy.
--- NOTE | 2021-06-17 08:30 | NUR ---
EKG results sinus tach. And bed is available for pt to go to Tele unit. Dr. Mccoy waiting at Tele bedside.
[2021-06-17] MEDS ORDERED: cefTRIAXone 1 GM IVPB PREMIX 50 ML IV SCH (09:00)
[2021-06-17] MEDS ORDERED: cefTRIAXone 1 GM VIAL IV ONE (09:00)
--- NOTE | 2021-06-17 09:00 | NUR ---
Patient will be admitted to Tele unit. Will go to room 108A. Belongings list completed. Complete and up to date summary report printed. SBAR report to be given at bedside with opportunity for questions. Dr. Mccoy at bedside.
[2021-06-17] MEDS: PIPERACILLIN/TAZO 3.375/DEX-IS 50 ML IV SCH ×2 (11:42→17:14)
[2021-06-17] MEDS: ACETAMINOPHEN 650 MG/20.3 ML UDC GT PRN ×2 (11:43→21:18)
[2021-06-17 12:46] LABS: CALCIUM 9.4 mg/dL (8.4-11.0); CREATININE 1.03 mg/dL (0.55-1.30); POTASSIUM 3.1 mmol/L (3.5-5.1)
[2021-06-17 13:21] LABS: BASOPHILS # (AUTO) 0.1 K/uL (0.0-0.2); BASOPHILS % (AUTO) 0.4 % (0.0-2.0); HEMATOCRIT 34.1 % (36-54); HEMOGLOBIN 11.5 g/dL (14.0-18.0); LYMPHOCYTES # (AUTO) 0.2 K/uL (1.0-5.5); LYMPHOCYTES % (AUTO) 1.1 % (20.5-51.5); MEAN CORPUSCULAR HEMOGLOBIN 32 pg (27-31); MEAN CORPUSCULAR HGB CONC 34 % (32-36); MEAN CORPUSCULAR VOLUME 94 fL (79.0-98.0); MONOCYTES # (AUTO) 0.7 K/uL (0.0-1.0); MONOCYTES % (AUTO) 3.2 % (1.7-9.3); NEUTROPHILS # (AUTO) 20.3 K/uL (1.8-7.7); NEUTROPHILS % (AUTO) 95.3 % (40.0-70.0); PLATELET COUNT (AUTO) 169 K/uL (130-430); RED BLOOD CELL COUNT(AUTO) 3.62 MIL/uL (4.2-6.2); RED CELL DISTRIBUTION WIDTH 14.2 % (9.0-15.0); WHITE BLOOD COUNT (AUTO) 21.3 K/uL (4.8-10.8)
--- NOTE | 2021-06-17 14:13 | NUR ---
CONSULT CARDIOLOGY TACHYCARDIA DR PISANO [phone] S/W CLARRISA EXCHANGE
--- NOTE | 2021-06-17 14:15 | NUR ---
CONSULT ID UTI DR ROSENBERG [phone] S/W DESHAUN POND
--- NOTE | 2021-06-17 14:16 | NUR ---
CONSULT PULMONOLOGY TRACH DEPENDENT DR HODGES [phone] S/W RENETTA EXCHANGE
[2021-06-17] MEDS ORDERED: KCL 40 mEq in 100 mL (PREMIX) 100 ML IV ONE (16:00)
[2021-06-17] MEDS ORDERED: ALBUTEROL SULFATE 0.083% 2.5 MG/3 ML VIAL.NEB INH PRN (16:15)
[2021-06-17] MEDS ORDERED: POTASSIUM CHLORIDE 40 MEQ in NS 250 ML IV ONE (16:30)
[2021-06-17] MEDS: NACL 0.9% 1,000 ML IV SCH (17:15)
[2021-06-17] MEDS ORDERED: METOCLOPRAMIDE HCL 10 MG/2 ML VIAL ONE (17:58)
[2021-06-17] MEDS ORDERED: ONDANSETRON HCL 4 MG/2 ML VIAL IVP PRN (18:00)
[2021-06-17] MEDS ORDERED: METOCLOPRAMIDE HCL 10 MG/2 ML VIAL IVP PRN (18:00)
--- NOTE | 2021-06-17 18:00 | NUR ---
1000AM. RECEIVED FROM ED , NON-VERBAL, OPENED EYES ON TACTILE STIMULI, OR HEARD HIS NAME, TEMP OF 102.3 VOMITTED NOTHING BUT YELLOW COLORED VOMITUS LARGE BM DR BIODIESEL OPERATIONS MANAGER PRESENT AT THIS TIME. TYLENOL LIQUID GIVEN 1200NOON TUBE FEED INITIATED 1700 AGAIN VOMITTED, BILE COLORED VOMITUS, REGLAN 10 IVP GIVEN NOW. IVF STARTED, AND 40 K RIDER ALSO BEGAN, ORDERED
--- NOTE | 2021-06-17 18:29 | NUR ---
bc x 2, gr+ bacilli, message left for dr paraprofessional aide teacher, no new orders
--- NOTE | 2021-06-17 19:20 | NUR ---
OPENING NOTES ENDORSED CARE FROM DAY SHIFT. PT IS SEMI FOWLERS WITH EYES OPEN. NO APPARENT DISTRESS NOTED AT THIS TIME. FALL AND SAFETY PRECAUTIONS IN PLACE. CALL LIGHT IS WITHIN REACH, BED IN LOWEST POSITION. HALEY CATHETER DRAINING TO GRAVITY.
[2021-06-17] MEDS: METOPROLOL TARTRATE 50 MG TABLET PO SCH (21:00)
[2021-06-18] VITALS (12 sets, daily range): BP systolic 82–120
[2021-06-18] MEDS: PIPERACILLIN/TAZO 3.375/DEX-IS 50 ML IV SCH ×3 (00:05→12:15)
--- NOTE | 2021-06-18 02:45 | NUR ---
DR NGUYỄN CALLED DR PISANO DUE TO PTS TACHYCARDIA. DR PISANO INSTRUCTED TO GIVE METOPROLOL AND ONLY HOLD IF SYSTOLIC BLOOD PRESSURE IS UNDER 90.
[2021-06-18] MEDS: METOPROLOL TARTRATE 50 MG TABLET PO SCH ×2 (02:50→15:49)
[2021-06-18] MEDS: NACL 0.9% 1,000 ML IV SCH ×3 (03:30→21:36)
--- NOTE | 2021-06-18 07:02 | NUR ---
CLOSING NOTES CARE ENDORSED TO DAY SHIFT. PT IS RESTING WITH EYES CLOSED. TUBE FEEDING AND FLUIDS RUNNING ORDERED. NO APPARENT DISTRESS NOTED AT THIS TIME. FALL AND SAFETY PRECAUTIONS IN PLACE. CALL LIGHT WITHIN REACH WITH BED IN LOWEST POSITION. HALEY CATHETER DRAINING TO GRAVITY.
[2021-06-18] MEDS: BISACODYL 5 MG TABLET.DR (DULCOLAX) PO SCH (09:00)
[2021-06-18] MEDS ORDERED: ENOXAPARIN SODIUM 30 MG/0.3 ML SYRINGE SQ SCH (09:00)
[2021-06-18] MEDS ORDERED: ASPIRIN 81 MG TAB.CHEW PO SCH (09:00)
[2021-06-18] MEDS ORDERED: POTASSIUM CHLORIDE 20 MEQ/PKT PACKET PO PRN (09:15)
[2021-06-18] MEDS: MULTIVITAMINS TAB 1 TABLET PO SCH (09:24)
[2021-06-18] MEDS: FERROUS SULFATE 300 MG/5 ML UDC PO SCH (09:24)
[2021-06-18] MEDS: ALBUMIN HUMAN 25% 50 ML IV SCH ×3 (09:25→21:31)
[2021-06-18] MEDS: ASCORBIC ACID 500 MG TABLET PO SCH (09:26)
--- NOTE | 2021-06-18 09:50 | NUR ---
rapid response pt developed rash on upper body. pt received lovenox eariler sq .bp dropped to 53/22 hr 123. 02 sat 87. rapid response called. dr allison here seen pt. dr whalen notified seen pt. new order recived for solumedrol and benadryl iv.,tracheal suction done by rt. see rapid response record..pt is on 15 o2 via t bar. 1001 bp 68/35 hr 126. 1006 bp 89/49, hr133. o2 sat 92% on 15 liter via t bar. pt received solumedrol and benadryl iv p as ordered.iv bolus ns 2 l infusing as ordered by dr allison. 1015-bp 107/58. hr 124. pt became more responsive. rash better dr whalen at bed side. . Addendum: 06/18/21 at 1658 by Trang Beauchamp RN late entry 1005-2 L normal saline bolus started after rapid response called ordered give by dr allison
[2021-06-18] MEDS ORDERED: methylPREDNISolone SOD SUCC/PF 62.5 MG/ML VIAL ONE ×2 (09:55→10:01)
[2021-06-18] MEDS ORDERED: DIPHENHYDRAMINE INJ 50 MG/ML VIAL ONE (09:55)
[2021-06-18] MEDS ORDERED: DIPHENHYDRAMINE INJ 50 MG/ML VIAL IVP ONE (10:15)
[2021-06-18] MEDS ORDERED: methylPREDNISolone SOD SUCC/PF 62.5 MG/ML VIAL IV ONE (10:15)
[2021-06-18] MEDS: ACETAMINOPHEN 650 MG/20.3 ML UDC GT PRN (11:16)
--- NOTE | 2021-06-18 11:30 | NUR ---
bp 94/33. second liter bolus infusing. on 6 o2 trach with t bar saturation 95%. 1140 bp 111/70. hr 144. 1145 pt resting bp120/63.hr 153. on 6 liter tbar temp 101.7 . will continue to monitor
--- NOTE | 2021-06-18 12:00 | NUR ---
BP 120/63 HR 140. PT STABLE AT THIS TIME. ICU CHARGE NURSE NOTIFIED FOR BED.
--- NOTE | 2021-06-18 12:01 | NUR ---
Nutrition Update Ceferino Scale 10 noted. Pt admitted for complicated UTI. Diet: Glucerna 1.2 at 60 ml/hr, Free Water Flush: 100cc every 6 hours via GT BMI: 17.9 kg/m2 RD to follow per nutrition care standards.
[2021-06-18] MEDS ORDERED: MIDODRINE HCL 5 MG TABLET (PROAMATINE) PO PRN (13:15)
--- NOTE | 2021-06-18 13:15 | NUR ---
MD CALLED PT BP DROPPED TO 89/49 HR 129. O2 SAT 100% 6 L ON TRAC WITH T BAR .CALLED DR ESTES AND INFORMED BP AT 1200 [address]PROVED 120/62. IN[address] ESTES THAT WAITING FOR ICU BED. NEW ORDER RECEIVED.
--- NOTE | 2021-06-18 13:30 | NUR ---
ICU TRANSFERED PT BP STILL LOW 87/46 .HR 140. PT TRANSFERED TO ICU WITH RT. REPORT GIVEN TO DENISA GILLIS
--- NOTE | 2021-06-18 13:30 | NUR ---
Received pt to 126B via bed with t-bar to trach and on 36% 4L 02 with sats 95%. BP 82/45 after fluid challenge on prior unit. Temp 101.3. Skin warm to touch. ST on monitor rate 141. Pt has eyes open and looks around the room but doesn't follow instructions. Escamilla in place. Pt has a wound to the right shoulder with a foam dressing in place.
[2021-06-18] MEDS ORDERED: NOREPINEPHRINE 4 MG/4 ML VIAL IV ONE (13:45)
[2021-06-18] MEDS ORDERED: NOREPINEPHRINE BITARTRATE 4 MG in NS 246 ML IV PRN (13:45)
[2021-06-18] MEDS ORDERED: MEROPENEM 1 GM in NS 100 ML IV SCH (15:45)
[2021-06-18] MEDS: BALSAM PERU/CASTOR OIL 56.7 GM OINT...G. TP SCH (15:54)
[2021-06-18] MEDS ORDERED: KCL 40 mEq in 100 mL (PREMIX) 100 ML IV ONE (16:00)
[2021-06-18] MEDS ORDERED: COMMUNICATION ORDER XX ONE (16:45)
[2021-06-18] MEDS ORDERED: POTASSIUM CHLORIDE 40 MEQ in NS 250 ML IV ONE (17:30)
[2021-06-18] MEDS: HEPARIN SODIUM,PORCINE 5,000 UNITS/ML VIAL SUBCUT SCH (21:32)
[2021-06-18] MEDS: MEROPENEM 1 GM in NS 100 ML IV SCH (21:36)
[2021-06-19] VITALS (23 sets, daily range): BP systolic 99–129
[2021-06-19] MEDS: MEROPENEM 1 GM in NS 100 ML IV SCH ×2 (05:22→19:22)
[2021-06-19] MEDS: HEPARIN SODIUM,PORCINE 5,000 UNITS/ML VIAL SUBCUT SCH (05:22)
[2021-06-19 08:17] LABS: ALBUMIN 1.7 g/dL (3.4-4.8); CALCIUM 8.2 mg/dL (8.4-11.0); CREATININE 0.55 mg/dL (0.55-1.30); POTASSIUM 4.4 mmol/L (3.5-5.1); TOTAL BILIRUBIN 0.5 mg/dL (0.0-1.0)
[2021-06-19] MEDS: BISACODYL 5 MG TABLET.DR (DULCOLAX) PO SCH ×2 (09:00→12:31)
[2021-06-19] MEDS: MULTIVITAMINS TAB 1 TABLET PO SCH (09:00)
[2021-06-19] MEDS: ASCORBIC ACID 500 MG TABLET PO SCH (09:00)
[2021-06-19] MEDS: METOPROLOL TARTRATE 50 MG TABLET PO SCH ×2 (09:00→21:00)
[2021-06-19] MEDS: FERROUS SULFATE 300 MG/5 ML UDC PO SCH (09:00)
[2021-06-19 09:15] LABS: BASOPHILS % (AUTO) 0.1 % (0.0-2.0); EOSINOPHILS # (AUTO) 0.5 K/uL (0.0-0.4); EOSINOPHILS % (AUTO) 2.6 % (0.0-4.0); LYMPHOCYTES # (AUTO) 0.5 K/uL (1.0-5.5); LYMPHOCYTES % (AUTO) 2.6 % (20.5-51.5); MEAN CORPUSCULAR HEMOGLOBIN 31 pg (27-31); MEAN CORPUSCULAR HGB CONC 33 % (32-36); MEAN CORPUSCULAR VOLUME 96 fL (79.0-98.0); MONOCYTES # (AUTO) 0.8 K/uL (0.0-1.0); MONOCYTES % (AUTO) 4.2 % (1.7-9.3); NEUTROPHILS # (AUTO) 16.3 K/uL (1.8-7.7); NEUTROPHILS % (AUTO) 90.5 % (40.0-70.0); PLATELET COUNT (AUTO) 72 K/uL (130-430); RED CELL DISTRIBUTION WIDTH 14.9 % (9.0-15.0); WHITE BLOOD COUNT (AUTO) 18.1 K/uL (4.8-10.8)
[2021-06-19 09:28] LABS: RED BLOOD CELL COUNT(AUTO) 1.52 MIL/uL (4.2-6.2)
--- NOTE | 2021-06-19 10:10 | NUR ---
Spoke to Dr. Campbell to report H/H. Orders left.
--- NOTE | 2021-06-19 10:20 | NUR ---
Dietitian Recommendations *Recommend: add Banatrol TID. *Continue Glucerna 1.2 at 60ml/hr, FWF 100ml Q6H via GT Provides: 1728 kcal, 86gm protein and 1559ml fluids daily. Meets: 88% of upper end of estimated calorie needs and 77% of upper end of estimated protein needs. Please see Nutritional Assessment for details.
[2021-06-19 10:41] LABS: HEMOGLOBIN 4.8 g/dL (14.0-18.0)
[2021-06-19 10:42] LABS: HEMATOCRIT 14.6 % (36-54)
--- NOTE | 2021-06-19 11:24 | NUR ---
PAGED FOR CONSULT ORDERING PHYSICIAN: REASON FOR CONSULT: HGB 4 / BLACK STOOLS DIALED: [phone] SPOKE TO: GORDO
[2021-06-19] MEDS: NACL 0.9% 1,000 ML IV SCH (12:36)
[2021-06-19 14:18] LABS: INR 1.1 (0.80-1.20); PROTHROMBIN TIME 11.5 SECS (9.5-12.5)
--- NOTE | 2021-06-19 14:46 | NUR ---
Packed cells still not ready. Pt had another large black tarry stool.
--- NOTE | 2021-06-19 16:44 | NUR ---
First unit of packed cells started.
[2021-06-19] MEDS ORDERED: PANTOPRAZOLE SODIUM 80 MG in NS 100 ML IVP ONE (17:00)
--- NOTE | 2021-06-19 19:00 | NUR ---
No further tarry stools noted.
[2021-06-19] MEDS: PANTOPRAZOLE SODIUM 40 MG in NS 50 ML IV SCH (19:22)
--- NOTE | 2021-06-19 20:44 | NUR ---
2nd unit of packed cells started infusing.
[2021-06-20] VITALS (24 sets, daily range): BP systolic 109–138
[2021-06-20] MEDS: PANTOPRAZOLE SODIUM 40 MG in NS 50 ML IV SCH ×6 (03:00→23:00)
--- NOTE | 2021-06-20 03:00 | NUR ---
No tarry stools noted.
[2021-06-20] MEDS: NACL 0.9% 1,000 ML IV SCH ×2 (03:08→05:44)
[2021-06-20] MEDS: BALSAM PERU/CASTOR OIL 56.7 GM OINT...G. TP SCH ×2 (03:10→10:06)
[2021-06-20] MEDS: MEROPENEM 1 GM in NS 100 ML IV SCH ×2 (03:13→05:42)
--- NOTE | 2021-06-20 04:00 | NUR ---
RECEIVED PT FROM CARLIN CRAWLEY. PT IS OBTUNDED, CAN FOLLOW COMMANDS, RESPONDS TO TACTILE STIMULI. TRACH WITH TBAR IN PLACE WITH 2LPM. O2 SAT AT 100%. RESP E/U, SHALLOW, CTA. TELE MONITOR READING SINUS TACH HR 102. ABDOMEN SOFT, NONTENDER, PT HAS LOOSE BLACK TARRY STOOLS ON PRIOR SHIFT. T/F HELD DUE TO POSSIBLE PROCEDURE, PT HAS GTUBE IN PLACE, SITE WNL. HALEY CATH IN PLACE. PATENT, DRAINING CLEAR YELLOW URINE TO GRAVITY, STAT LOCK IN PLACE. DISTAL PULSES MODERATE, SKIN WARM, NO EDEMA. PT HAS R UPPER ARM MIDLINE, SITE WNL, DRESSING CDI. PT IS CONTRACTED BUE AND BLE. PT HAS SACRAL COCCYX WOUND REINFORCED WITH OPTIFOAM. PT WILL BE TURNED AND REPOSITIONED Q 2 HOURS AND PRN. ALL NEEDS ANTICIPATED BY STAFF.
--- NOTE | 2021-06-20 04:26 | NUR ---
Report given to oncoming nurse to assume care of the patient..
[2021-06-20 06:09] LABS: BASOPHILS % (AUTO) 0.1 % (0.0-2.0); EOSINOPHILS % (AUTO) 0.1 % (0.0-4.0); HEMATOCRIT 22.9 % (36-54); HEMOGLOBIN 7.7 g/dL (14.0-18.0); LYMPHOCYTES # (AUTO) 0.7 K/uL (1.0-5.5); LYMPHOCYTES % (AUTO) 4.2 % (20.5-51.5); MEAN CORPUSCULAR HEMOGLOBIN 29 pg (27-31); MEAN CORPUSCULAR HGB CONC 33 % (32-36); MEAN CORPUSCULAR VOLUME 86 fL (79.0-98.0); MONOCYTES # (AUTO) 0.6 K/uL (0.0-1.0); MONOCYTES % (AUTO) 3.3 % (1.7-9.3); NEUTROPHILS # (AUTO) 15.8 K/uL (1.8-7.7); NEUTROPHILS % (AUTO) 92.3 % (40.0-70.0); PLATELET COUNT (AUTO) 61 K/uL (130-430); RED BLOOD CELL COUNT(AUTO) 2.67 MIL/uL (4.2-6.2); RED CELL DISTRIBUTION WIDTH 21.2 % (9.0-15.0); WHITE BLOOD COUNT (AUTO) 17.1 K/uL (4.8-10.8)
[2021-06-20 06:40] LABS: CALCIUM 8.6 mg/dL (8.4-11.0); CREATININE 0.47 mg/dL (0.55-1.30); POTASSIUM 3.4 mmol/L (3.5-5.1)
--- NOTE | 2021-06-20 08:27 | NUR ---
PAGED FOR ORDERS SPOKE TO: STAINED GLASS INSTALLER
--- NOTE | 2021-06-20 08:44 | NUR ---
REPORTED CRITICAL LABS NA 160, CL 126, RECEIVED ORDERS TO D/C NS, GIVE PT 1/2 NS 70CC/HOUR, ADD NEW CONSULT DR. LUONG. ORDERS CARRIED OUT. DR. LUONG PAGED, AWAITING CALL BACK.
[2021-06-20] MEDS: MULTIVITAMINS TAB 1 TABLET PO SCH ×2 (09:00→13:11)
[2021-06-20] MEDS: ASCORBIC ACID 500 MG TABLET PO SCH (09:00)
[2021-06-20] MEDS: FERROUS SULFATE 300 MG/5 ML UDC PO SCH (09:00)
[2021-06-20] MEDS: METOPROLOL TARTRATE 50 MG TABLET PO SCH ×2 (09:00→13:12)
[2021-06-20] MEDS ORDERED: 0.45% NACL 1,000 ML IV SCH (09:00)
--- NOTE | 2021-06-20 09:03 | NUR ---
PAGED FOR CONSULT ORDERING PHYSICIAN: REASON FOR CONSULT: CRITICAL LABS DIALED: [phone] SPOKE TO: MYRANDA
--- NOTE | 2021-06-20 10:07 | NUR ---
REPORTED TO DR. COLLAZO, PT HAS NEW PRESENTATION OF BLEEDING WHEN ETT SUCTIONING IS APPLIED. IT HAS APPEARED, INFORMED DR. COLLAZO LOVEJULIANNAX HAS BEEN HELD. HE STATED, "OKAY TO HOLD MALORIE, PLEASE INFORM THE WORKDAY FINANCIALS CONSULTANT OF NEW FINDING. Addendum: 06/20/21 at 1348 by [employer] tele[employer] specialist ATTACHED NOTE IS NOT FOR THIS PT.
--- NOTE | 2021-06-20 12:00 | NUR ---
PT HAS SMALL LIQUID BLACK STOOL. SMALL SAMPLE TAKEN FOR OCCULT LAB BUT MOST LIKELY NO ENOUGH FOR TESTING PURPOSES. PT GIVEN PARTIAL BED BATH. LINEN AND GOWN CHANGE, HALEY CATH CARE AND WOUND CARE. SACRAL COCCYX DRESSNIG REMOVED, SITE RINSED WITH N/S, PATTED DRY, TOPICAL MEDICATION APPLIED AND COVERED WITH CDI OPTIFOAM DRESSING. SITE APPEARS 95% HEALED. PT TOLERATED ACTIVITY WELL, 02 SAT MAINTAINED AT 99%.
--- NOTE | 2021-06-20 13:32 | NUR ---
PIG FURNACE OPERATOR INFORMED THIS RN PT'S EGD IS SCHEDULED FOR TOMORROW. PAGED DR. VILLANUEVA TO ASK IF T/F CAN BE RESTARTED, AWAITING CALL BACK. MORNING MEDS GIVEN AT THIS TIME.
--- NOTE | 2021-06-20 14:25 | NUR ---
PAGED FOR ORDERS DIALED: [phone] SPOKE TO: AIRCRAFT ARMORER FORWARD ME TO ANSWERING SERVICE, WENT TO VOICEMAIL. LEFT VOICEMAIL
--- NOTE | 2021-06-20 14:53 | NUR ---
REPORTED TO DR. KILPATRICK, PT NPO AND EGD IS NOT SCHEDULED UNTIL TOMORROW. RECEIVED ORDER TO MAINTAIN PT NPO, D/C 1/2 NS IVF, START D5 1/2NS AT 70ML/HOUR. ORDERS CARRIED OUT.
[2021-06-20] MEDS: CEFTAZIDIME/AVIBACTAM 2.5 GM in NS 100 ML IV SCH ×2 (14:58→22:11)
[2021-06-20] MEDS ORDERED: D5/0.45 NS 1,000 ML IV SCH (15:00)
[2021-06-20] MEDS ORDERED: INSULIN LISPRO SLIDING SCALE 100 UNITS/ML VIAL (humaLOG) SUBCUT PRN (16:15)
[2021-06-20] MEDS ORDERED: D5W 1,000 ML IV PRN (16:15)
[2021-06-20] MEDS ORDERED: DEXTROSE 50% JECT 50 ML DISP.SYRIN IVP PRN (16:15)
[2021-06-20] MEDS ORDERED: GLUCOSE (DEXTROSE) ORAL GEL -Adults PO PRN (16:15)
[2021-06-20] MEDS: D5W 1,000 ML IV SCH (17:09)
--- NOTE | 2021-06-20 19:30 | NUR ---
ENDORSED ALL CARE TO CARLIN JIMENEZ. ALL QUESTIONS AND CONCERNS ADDRESSED.
[2021-06-20] MEDS: ACETAMINOPHEN 650 MG/20.3 ML UDC GT PRN (21:46)
[2021-06-21] VITALS (24 sets, daily range): BP systolic 103–126
[2021-06-21] MEDS: PANTOPRAZOLE SODIUM 40 MG in NS 50 ML IV SCH ×4 (04:29→19:00)
[2021-06-21] MEDS: CEFTAZIDIME/AVIBACTAM 2.5 GM in NS 100 ML IV SCH ×2 (06:54→14:14)
[2021-06-21] MEDS ORDERED: fentaNYL CITRATE/PF 100 MCG/2 ML AMP ONE (07:18)
[2021-06-21] MEDS ORDERED: MIDAZOLAM HCL 5 MG/5 ML VIAL ONE (07:18)
[2021-06-21] MEDS ORDERED: SIMETHICONE 40 MG/0.6 ML ML ONE (07:18)
--- NOTE | 2021-06-21 07:30 | NUR ---
@0718 Change of shift report received from Halle GILLIS met eyes open unable to follow command vitals stable monitor at the bedside preparation at the bedside for EGD by the GI lab, trach to 2 liters oxygen O 2sat 100% will continue to monitor and treat as per care plan. @[id number] Dr Mccoy came to bedside no new order received.
[2021-06-21 07:37] LABS: INR 1.1 (0.80-1.20); PROTHROMBIN TIME 11.8 SECS (9.5-12.5)
[2021-06-21 07:52] LABS: CALCIUM 7.8 mg/dL (8.4-11.0); CREATININE 0.4 mg/dL (0.55-1.30)
[2021-06-21 07:58] LABS: BASOPHILS % (AUTO) 0.2 % (0.0-2.0); EOSINOPHILS % (AUTO) 0.2 % (0.0-4.0); HEMOGLOBIN 7.2 g/dL (14.0-18.0); LYMPHOCYTES # (AUTO) 1.1 K/uL (1.0-5.5); LYMPHOCYTES % (AUTO) 12.3 % (20.5-51.5); MEAN CORPUSCULAR HEMOGLOBIN 29 pg (27-31); MEAN CORPUSCULAR HGB CONC 33 % (32-36); MEAN CORPUSCULAR VOLUME 86 fL (79.0-98.0); MONOCYTES # (AUTO) 0.4 K/uL (0.0-1.0); MONOCYTES % (AUTO) 4.6 % (1.7-9.3); NEUTROPHILS # (AUTO) 7.2 K/uL (1.8-7.7); NEUTROPHILS % (AUTO) 82.7 % (40.0-70.0); PLATELET COUNT (AUTO) 60 K/uL (130-430); RED BLOOD CELL COUNT(AUTO) 2.53 MIL/uL (4.2-6.2); RED CELL DISTRIBUTION WIDTH 21.2 % (9.0-15.0); WHITE BLOOD COUNT (AUTO) 8.7 K/uL (4.8-10.8)
[2021-06-21] MEDS ORDERED: MIDAZOLAM HCL 5 MG/5 ML VIAL IVP ONE (07:59)
[2021-06-21] MEDS ORDERED: SIMETHICONE 40 MG/0.6 ML ML PO ONE ×2 (07:59)
--- NOTE | 2021-06-21 08:00 | NUR ---
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
[2021-06-21 08:31] LABS: POTASSIUM 2.6 mmol/L (3.5-5.1)
--- NOTE | 2021-06-21 08:35 | NUR ---
Dr Campbell rounds updates on the pt's condition results of EGD, Potassium was 2.6 order received supplements K ridandrez 40meq iv also spoke to Dr Lynn.
[2021-06-21] MEDS ORDERED: POTASSIUM CHLORIDE 40 MEQ, LIDOCAINE JECT 2% PF 100 MG 50 MG in NS 250 ML IV ONE (08:45)
[2021-06-21] MEDS: BISACODYL 5 MG TABLET.DR (DULCOLAX) PO SCH (09:00)
[2021-06-21] MEDS: ASCORBIC ACID 500 MG TABLET PO SCH (09:00)
[2021-06-21] MEDS: BALSAM PERU/CASTOR OIL 56.7 GM OINT...G. TP SCH (09:00)
[2021-06-21] MEDS: METOPROLOL TARTRATE 50 MG TABLET PO SCH ×2 (09:00→21:00)
[2021-06-21] MEDS: FERROUS SULFATE 300 MG/5 ML UDC PO SCH (09:00)
[2021-06-21 09:22] LABS: HEMATOCRIT 21.7 % (36-54)
--- NOTE | 2021-06-21 10:30 | NUR ---
Tube feeding resumed as per Dr Blanca's order tolerating well,
[2021-06-21] MEDS: D5W 1,000 ML IV SCH ×3 (11:14→22:15)
[2021-06-21] MEDS ORDERED: CEFIDEROCOL SULFATE TOSYLATE 2 GM in NS 100 ML IV SCH (15:30)
--- NOTE | 2021-06-21 16:30 | NUR ---
Complete CHG bath linen changed pictures taken of all the wounds on right shoulder, coccyx and right shoulder all covered with dressings pt tolerated well
--- NOTE | 2021-06-21 19:35 | NUR ---
Change of shift report given to Ana GILLIS updates on pt's condition as at this time pt's vitals signs stable afebrile no changes in care plan and pt's condition
[2021-06-21] MEDS ORDERED: PANTOPRAZOLE SODIUM 40 MG/VIAL (PROTONIX) ONE (20:12)
[2021-06-21] MEDS: CEFIDEROCOL SULFATE TOSYLATE 2 GM in NS 100 ML IV SCH (21:04)
[2021-06-22] VITALS (24 sets, daily range): BP systolic 101–116
[2021-06-22] MEDS ORDERED: PANTOPRAZOLE SODIUM 40 MG/VIAL (PROTONIX) ONE ×2 (01:37→05:34)
[2021-06-22] MEDS: PANTOPRAZOLE SODIUM 40 MG in NS 50 ML IV SCH ×6 (05:37→19:01)
[2021-06-22 07:03] LABS: BASOPHILS % (AUTO) 0.2 % (0.0-2.0); EOSINOPHILS # (AUTO) 0.2 K/uL (0.0-0.4); EOSINOPHILS % (AUTO) 1.9 % (0.0-4.0); HEMATOCRIT 22.6 % (36-54); HEMOGLOBIN 7.5 g/dL (14.0-18.0); LYMPHOCYTES # (AUTO) 1.2 K/uL (1.0-5.5); MEAN CORPUSCULAR HEMOGLOBIN 29 pg (27-31); MEAN CORPUSCULAR HGB CONC 33 % (32-36); MEAN CORPUSCULAR VOLUME 86 fL (79.0-98.0); MONOCYTES # (AUTO) 0.6 K/uL (0.0-1.0); MONOCYTES % (AUTO) 5.1 % (1.7-9.3); NEUTROPHILS % (AUTO) 81.8 % (40.0-70.0); PLATELET COUNT (AUTO) 77 K/uL (130-430); RED BLOOD CELL COUNT(AUTO) 2.62 MIL/uL (4.2-6.2); RED CELL DISTRIBUTION WIDTH 19.5 % (9.0-15.0)
--- NOTE | 2021-06-22 07:15 | NUR ---
RECEIVED PT FROM CARLIN CHAVEZ. PT IS ORIENTED TO SELF, TRACKS WITH EYES, GIVES NO INDICATION OF THE ABILITY TO FOLLOW COMMANDS OR COMMUNICATE NEEDS. PT PERRLA, PUPILS 4MM BRISK BILATERALLY. TELEMONITOR READING NSR HR 80. RESP E/U, SHALLOW. BILATERAL UPPER LOBE RHONCHI NOTED. PT ON T-BAR WITH 2LPM O2. ABDOMEN SOFT, NONTENDER, NONDISTENDED. BOWEL SOUNDS ACTIVE X4 QUADS. PT HAS GTUBE IN PLACE, SITE WNL, DRESSING CDI. DISTAL PULSES MODERATE, SKIN WARM. PT HAS BLE 1+ EDEMA, BOTH LEGS ELEVATED. PT HAS SACRAL COCCYX WOUNDS AND BILATEARAL HEEL REDNESS, R SIDE NONBLANCHABLE, L SIDE BLANCHABLE, ALL SITES COVERED WITH OPTIFOAM. FLACC 0. DOMINGO MIDLINE PRESENT WITH PROTONIX DRIP RUNNING AT 10ML/HOUR AND D5W RUNNING AT 100ML/HOUR. SITE WNL, DRESSING CDI. HALEY CATH IN PLACE DRAINING LIGHT YELLOW URINE BY GRAVITY. PT HAS TEMP 101.3, PT WILL BE MEDICATED PER JUL. COOLING MEASURES IN PLACE.
[2021-06-22 07:29] LABS: CALCIUM 7.7 mg/dL (8.4-11.0); CREATININE 0.36 mg/dL (0.55-1.30)
[2021-06-22 07:54] LABS: POTASSIUM 2.5 mmol/L (3.5-5.1)
[2021-06-22] MEDS ORDERED: KCL 40 mEq in 100 mL (PREMIX) 100 ML IV ONE (08:15)
--- NOTE | 2021-06-22 08:15 | NUR ---
REPORTED TO DR. HODGES, PT HAS TEMP 101.3, PT k+= 2.5. RECEIVED ORDER FOR KCL 80MEQ IV X1 NOW, BLOOD CX AND URINE CX. URINE OBTAINED AND TAKEN TO LAB AT THIS TIME.
[2021-06-22] MEDS ORDERED: POTASSIUM CHLORIDE 20 MEQ/PKT PACKET PO ONE (09:00)
[2021-06-22] MEDS ORDERED: POTASSIUM CHLORIDE 40 MEQ in D5W 250 ML IV ONE (09:30)
[2021-06-22] MEDS: ACETAMINOPHEN 650 MG/20.3 ML UDC GT PRN (09:32)
[2021-06-22] MEDS: FERROUS SULFATE 300 MG/5 ML UDC PO SCH (09:32)
[2021-06-22] MEDS: BISACODYL 5 MG TABLET.DR (DULCOLAX) PO SCH (09:33)
[2021-06-22] MEDS: ASCORBIC ACID 500 MG TABLET PO SCH (09:33)
[2021-06-22] MEDS: METOPROLOL TARTRATE 50 MG TABLET PO SCH ×2 (09:33→20:56)
[2021-06-22] MEDS: MULTIVITAMINS TAB 1 TABLET PO SCH (09:34)
[2021-06-22] MEDS: BALSAM PERU/CASTOR OIL 56.7 GM OINT...G. TP SCH (09:36)
[2021-06-22] MEDS: D5W 1,000 ML IV SCH ×2 (09:41→17:09)
--- NOTE | 2021-06-22 10:30 | NUR ---
KCL 40 MEQ IV AND 40 MEQ VIA GTUBE GIVEN FOR K+= 2.5. MULTIPLE PHYSICIANS ADDED ORDERS TO COVER K+=, PHARMACY CALLED AND STATED THE ORDER WERE CLARIFIED AND PLEASE DO FOLLOW UP BMP AFTER POTASSIUM INFUSES.
[2021-06-22] MEDS: CEFIDEROCOL SULFATE TOSYLATE 2 GM in NS 100 ML IV SCH (14:00)
--- NOTE | 2021-06-22 15:00 | NUR ---
PT HAD LARGE WATERY STOOL. PT GIVEN PARTIAL BED BATH, HALEY CATH CARE, WOUND CARE AND LINEN AND GOWN CHANGE. TOLERATES ACTIVITY WELL.
--- NOTE | 2021-06-22 15:47 | NUR ---
Nutrition F/U Admitting Diagnosis Complicated UTI Reviewed Pertinent Medical/Surgical Hx Medical Record Other Medical History Comment: Sepsis 2/2 Complicated UTI, Hypokalemia, Severe Malnutrition w/ cachexia, Dysphagia, S/P PEG, TBI, Chronic respiratory failure per MD notes. SARS-CoV-2 Ag Rapid 2/ Negative Subjective Information RD rounded to pt's bedside (ICU overflow, room 126B), while pt's primary RN was providing care. She had recently replaced pt's TF formula/tubing, and reported that pt has been tolerating TF well. She stated that water flush being provided is 100 ml Q6h, and that pt is still receiving D5% d/t hypernatremia. Pt has loose/liquid stools and had recently had a BM per RN report. Pt may still benefit from banana flakes to support bulking stool. She stated pt may be transferred to MST unit soon. Per EMR review, pt is s/p EGF 06/21, which revealed mild gastritis/esophageal mass, and a Bx was done; no longer bleeding; pt remains trach to T-bat, unresponsive, +fevers; TF Rate: 60 ml /10; GRV: 0 ml /10; TF Intakes: 660 ml /; last BM x3 06/19; Ceferino scale: 12 w/ wound to R shoulder. RN reported that pt has some redness to sacral area as well. She stated she will ask for new ALB lab draw as pt's levels went from 3.4 gm/dl (06/17) to 1.7 gm/dl (06/19) since admission. Pt may benefit from Prosource protein supplementation and Lucho to support lean muscle mass preservation and wound healing. Current Diet Order/Nutrition Support Glucerna 1.2 at 60 ml/hr, Free Water Flush: 100 via GT x1 day Patient/Significant Other Unable To Verbalize Education Provided Not Indicated Pertinent Medications KCl packet, MVI, ferrous sulfate, dulcolax tab, VIT C, lopressor, D5%W at 100 ml/hr (408 kcal/day) Pertinent Labs WBC 11 H, H/H 7.5 L/22.6 L, K 2.5 L, Na 147 H, BG 146 H, BUN 8 WNL, CRE 0.36 L, ALB 1.7 L Height (Feet) 5 feet Height (Inches) 3.00 inches Weight (Pounds) 101 pounds -- stable since 06/19 Weight (Calculated Kilograms) 45.117058 kilograms Patient Weight 45.813 kg Body Mass Index 17.89 kg/m2 %IBW 81 [place]/Adjusted Body Weight 124#/ 56kg Weight Status Underweight -- at risk for malnutrition Gastrointestinal Symptoms Diarrhea Estimated Energy Expenditure (kcals/day) 7323-2718 (30-35 kcal/kg IBW for sepsis/wound healing) Estimated Protein Required (g/day) 84-112 gm (1.5-2 gm/kg IBW for sepsis/wound healing) Estimated Fluid Required (l/day) 1.7 (30ml/kg IBW for maintenance) Problem/Etiology/Signs/Symptoms Increased nutrient needs r/t metabolic demands AEB estimated calorie and protein needs for sepsis. *ongoing Altered GI function r/t ?etiology AEB diarrhea. *ongoing Expected Outcomes/Goals Monitor EN tolerance and intake w/ goal of pt meeting more than 75% of estimated nutritional needs, labs trending WNL, normal GI function, skin integrity/wt maintenance. Dietitian Recommendations * Glucerna 1.2 at 60 ml/hr, Lucho BID, Prosource daily, Banatrol BID, Free Water Flush: 100 ml Q6h via GT Provides: 1968 kcal/day, 106 gm protein/day, and 1559 ml free water/day Meets: 100% of upper end of estimated caloric needs and 95% of upper end of estimated protein needs * Consider tapering off D5%W IV to improve glycemic control Follow Up High Risk: F/U in 2-3 days
--- NOTE | 2021-06-22 16:00 | NUR ---
Dietitian Recommendations * Glucerna 1.2 at 60 ml/hr, Lucho BID, Prosource daily, Banatrol BID, Free Water Flush: 100 ml Q6h via GT Provides: 1968 kcal/day, 106 gm protein/day, and 1559 ml free water/day Meets: 100% of upper end of estimated caloric needs and 95% of upper end of estimated protein needs * Consider tapering off D5%W IV to improve glycemic control LP, RD Please refer to Nutrition F/U for details.
--- NOTE | 2021-06-22 19:24 | NUR ---
ENDORSED ALL CARE TO CARLIN GARCIA. ALL QUESTIONS AND CONCERNS ADDRESSED.
[2021-06-22 19:25] LABS: CALCIUM 7.7 mg/dL (8.4-11.0); CREATININE 0.29 mg/dL (0.55-1.30); POTASSIUM 3.3 mmol/L (3.5-5.1)
[2021-06-22] MEDS: POTASSIUM CHLORIDE 20 MEQ TAB.PRT.SR PO SCH (20:55)
[2021-06-23] VITALS (16 sets, daily range): BP systolic 96–121
[2021-06-23] MEDS: D5W 1,000 ML IV SCH ×3 (03:39→22:26)
[2021-06-23] MEDS: PANTOPRAZOLE SODIUM 40 MG in NS 50 ML IV SCH ×5 (03:39→22:26)
[2021-06-23] MEDS: CEFIDEROCOL SULFATE TOSYLATE 2 GM in NS 100 ML IV SCH ×2 (05:50→22:00)
[2021-06-23 06:24] LABS: BASOPHILS % (AUTO) 0.2 % (0.0-2.0); EOSINOPHILS # (AUTO) 0.4 K/uL (0.0-0.4); HEMATOCRIT 23.2 % (36-54); HEMOGLOBIN 7.8 g/dL (14.0-18.0); LYMPHOCYTES % (AUTO) 11.3 % (20.5-51.5); MEAN CORPUSCULAR HEMOGLOBIN 29 pg (27-31); MEAN CORPUSCULAR HGB CONC 33 % (32-36); MEAN CORPUSCULAR VOLUME 87 fL (79.0-98.0); MONOCYTES # (AUTO) 0.4 K/uL (0.0-1.0); MONOCYTES % (AUTO) 4.6 % (1.7-9.3); NEUTROPHILS # (AUTO) 7.4 K/uL (1.8-7.7); NEUTROPHILS % (AUTO) 79.9 % (40.0-70.0); PLATELET COUNT (AUTO) 102 K/uL (130-430); RED BLOOD CELL COUNT(AUTO) 2.68 MIL/uL (4.2-6.2); RED CELL DISTRIBUTION WIDTH 18.9 % (9.0-15.0); WHITE BLOOD COUNT (AUTO) 9.2 K/uL (4.8-10.8)
[2021-06-23 06:36] LABS: CALCIUM 7.8 mg/dL (8.4-11.0); CREATININE 0.27 mg/dL (0.55-1.30); POTASSIUM 3.5 mmol/L (3.5-5.1)
--- NOTE | 2021-06-23 07:20 | NUR ---
RECEIVED PT FROM CARLIN GARCIA. ASSUMED ALL CARE. PT IS AAOX1 TO SELF, NONVERBAL, UNABLE TO COMMUNICATE NEEDS OR FOLLOW COMMANDS, WILL TRACK WITH EYES. PERRLA, PUPILS 3MM BRISK BILATERALLY. TELEMONITOR IN PLACE READING NSR, HR 94. RESP E/U. MILD RHONCHI NOTED TO BILATERAL UPPER LOBES. PT HAS TBAR IN PLACE WITH 2 LPM O2. ABDOMEN SOFT, NONTENDER, NONDISTENDED. BOWEL SOUNDS ACTIVE X4 QUADS. PT HAS REPORTED LOOSE DARK BLACK, WATERY STOOLS FROM PRIOR DAY. STOOL SOFTNER WILL BE HELD. GTUBE IN PLACE, SITE WNL, DRESSING CDI. PT HAS T/F RUNNING GLUCERNA 1.2 AT 60ML/HOUR WITH 100ML FWF Q [address] PL[address]. HALEY CATH IN PLACE DRAINING CLEAR YELLOW URINE TO GRAVITY. INCONTINENT OF STOOL. DISTAL PULSES MODERATE, SKIN WARM. PT HAS BLE 2+ EDEMA, INCREASED ON R FOOT. BUE AND BLE CONTRACTED. DOMINGO MIDLINE IN PLACE 2 LUMENS FLUSHED AND PATENT. SITE WNL. DRESSING CDI. PT HAS BILATERAL HEEL REDNESS AND SACRAL COCCYX HEALING WOUND WITH SOME SCABBING EVIDENT. ALL SITES COVERED WITH CDI OPTIFOAM DRESSINGS. NO S/S OF PAIN OR DISCOMFORT NOTED. FALL PROTOCOL IN PLACE. BED IN LOWEST POSITION.
[2021-06-23] MEDS: BISACODYL 5 MG TABLET.DR (DULCOLAX) PO SCH (09:00)
[2021-06-23] MEDS: BALSAM PERU/CASTOR OIL 56.7 GM OINT...G. TP SCH (09:32)
[2021-06-23] MEDS: ACETAMINOPHEN 650 MG/20.3 ML UDC GT PRN (09:33)
[2021-06-23] MEDS: METOPROLOL TARTRATE 50 MG TABLET PO SCH ×2 (09:42→22:18)
[2021-06-23] MEDS: MULTIVITAMINS TAB 1 TABLET PO SCH (09:43)
[2021-06-23] MEDS: FERROUS SULFATE 300 MG/5 ML UDC PO SCH (09:43)
[2021-06-23] MEDS: POTASSIUM CHLORIDE 20 MEQ TAB.PRT.SR PO SCH ×2 (09:43→22:18)
--- NOTE | 2021-06-23 09:45 | NUR ---
SCHEDULED MEDS GIVEN AND TOLERATED WELL. PT WAS GIVEN TYLENOL PRN ORDERED FOR TEMP 100.4F. COOLING MEASURES IN PLACE.
[2021-06-23] MEDS: ASCORBIC ACID 500 MG TABLET PO SCH (09:48)
--- NOTE | 2021-06-23 11:51 | NUR ---
SPOKE TO CARLIN CHAVEZ AT GI LAB, STATED PT IS READY FOR CT SCAN, INFORMED CONSENT FOR CONTRAST HAS BEEN OBTAINED. PT IS TO TRANSFER TO [facility] ROOM 134A ONCE THE PROCEDURE IS COMPLETED. KATHY VERBALIZED UNDERSTANDING. CALLED AND GAVE REPORT TO CARLIN PERKINS. INFORMED HER PT WILL GO TO PROCEDURE THEN BE TRANSFERRED BY BED TO ROOM 134A. PT HAD TEMP 100.4F AND WAS GIVEN TYLENOL VIA NGT THIS MORNING. MADDIE VERBALIZED UNDERSTANDING, ALL QUESTIONS AND CONCERNS ADDRESSED.
--- NOTE | 2021-06-23 12:20 | NUR ---
PT TAKEN TO CT SCAN AT THIS TIME. MEDICATIONS S/L.
--- NOTE | 2021-06-23 20:00 | NUR ---
RECEIVED PATIENT IN BED, AWAKE , NO FOLLOW ANY COMMEND, FIO2 28% VIA T BAR C/A , NO DISTRESS NOTED. NO FACIAL GRIMACING NOTED.
--- NOTE | 2021-06-23 22:00 | NUR ---
CEFIDEROCOL 2 GM IVPB GIVEN AND SCAN BAR IS NOT WORKING, INFUSING AT DOMINGO MIDLINE , SITE IS CLEAR, PROTONIX IV DRIP IS INFUSING AT DOMINGO, GT FEEDING WITH GLUCENA AT 50 ML/HR , FLUSHED WITH WATER , NO RESIDUE NOTED. HOB ELEVATE AT ALL THE TIME. WILL CONTINUE TO MONITOR
[2021-06-23] MEDS ORDERED: PANTOPRAZOLE SODIUM 40 MG/VIAL (PROTONIX) ONE (22:25)
[2021-06-24] VITALS: BP_SYST 114
[2021-06-24] MEDS: PANTOPRAZOLE SODIUM 40 MG in NS 50 ML IV SCH ×5 (02:32→21:53)
--- NOTE | 2021-06-24 04:30 | NUR ---
TURN AND REPOSITION Q2H TO KEEP COMFORT, GOOD SKIN CARE GIVEN , MORNING CARE GIVEN .
[2021-06-24] MEDS: CEFIDEROCOL SULFATE TOSYLATE 2 GM in NS 100 ML IV SCH ×3 (05:06→21:54)
[2021-06-24 06:43] LABS: BASOPHILS % (AUTO) 0.3 % (0.0-2.0); EOSINOPHILS # (AUTO) 0.4 K/uL (0.0-0.4); EOSINOPHILS % (AUTO) 5.7 % (0.0-4.0); HEMATOCRIT 23.8 % (36-54); HEMOGLOBIN 7.8 g/dL (14.0-18.0); LYMPHOCYTES # (AUTO) 1.1 K/uL (1.0-5.5); LYMPHOCYTES % (AUTO) 15.6 % (20.5-51.5); MEAN CORPUSCULAR HEMOGLOBIN 29 pg (27-31); MEAN CORPUSCULAR HGB CONC 33 % (32-36); MEAN CORPUSCULAR VOLUME 87 fL (79.0-98.0); MONOCYTES # (AUTO) 0.4 K/uL (0.0-1.0); MONOCYTES % (AUTO) 5.4 % (1.7-9.3); NEUTROPHILS # (AUTO) 5.2 K/uL (1.8-7.7); PLATELET COUNT (AUTO) 152 K/uL (130-430); RED BLOOD CELL COUNT(AUTO) 2.74 MIL/uL (4.2-6.2); RED CELL DISTRIBUTION WIDTH 18.3 % (9.0-15.0); WHITE BLOOD COUNT (AUTO) 7.1 K/uL (4.8-10.8)
[2021-06-24 06:49] LABS: CALCIUM 7.9 mg/dL (8.4-11.0); CREATININE 0.33 mg/dL (0.55-1.30); POTASSIUM 3.6 mmol/L (3.5-5.1)
[2021-06-24 08:00] VITALS: BP_SYST 102
[2021-06-24] MEDS: POTASSIUM CHLORIDE 20 MEQ TAB.PRT.SR PO SCH ×2 (09:52→21:52)
[2021-06-24] MEDS: FERROUS SULFATE 300 MG/5 ML UDC PO SCH (09:52)
[2021-06-24] MEDS: METOPROLOL TARTRATE 50 MG TABLET PO SCH ×2 (09:53→21:00)
[2021-06-24] MEDS: BISACODYL 5 MG TABLET.DR (DULCOLAX) PO SCH (09:54)
[2021-06-24] MEDS: MULTIVITAMINS TAB 1 TABLET PO SCH (09:54)
[2021-06-24] MEDS: ASCORBIC ACID 500 MG TABLET PO SCH (09:54)
[2021-06-24] MEDS: BALSAM PERU/CASTOR OIL 56.7 GM OINT...G. TP SCH (09:55)
[2021-06-24 11:31] VITALS: BP_SYST 98
[2021-06-24] MEDS: D5W 1,000 ML IV SCH (12:04)
[2021-06-24 15:16] VITALS: BP_SYST 100
--- NOTE | 2021-06-24 19:30 | NUR ---
Opening note Received report from day shift. Pt awake resting in bed. No s/s of respiratory distress. Breathing even and unlabored. DOMINGO picc line in place with fluids running at ordered rate. GT site intact with tube feeding running at ordered rate. Escamilla catheter intact and draining by gravity. Fall and safety precautions in place with bed in lowest position, bed alarm on, and call light within reach
[2021-06-24 20:00] VITALS: BP_SYST 109
--- NOTE | 2021-06-25 00:15 | NUR ---
Rounds Pt sleeping. No s/s of acute distress. Fall and safety checks in place
[2021-06-25 00:43] VITALS: BP_SYST 100
[2021-06-25] MEDS: PANTOPRAZOLE SODIUM 40 MG in NS 50 ML IV SCH ×5 (03:32→22:51)
[2021-06-25] MEDS: CEFIDEROCOL SULFATE TOSYLATE 2 GM in NS 100 ML IV SCH ×3 (06:34→21:10)
--- NOTE | 2021-06-25 06:54 | NUR ---
Closing note Pt awake resting in bed. No s/s of respiratory distress. Breathing even and unlabored. DOMINGO picc line in place with fluids running at ordered rate. GT site intact with tube feeding running at ordered rate. Escamilla catheter intact and draining by gravity. All needs met throughout shift. Fall and safety precautions in place with bed in lowest position, bed alarm on, and call light within reach
[2021-06-25 07:10] LABS: BASOPHILS % (AUTO) 0.3 % (0.0-2.0); EOSINOPHILS # (AUTO) 0.3 K/uL (0.0-0.4); EOSINOPHILS % (AUTO) 4.5 % (0.0-4.0); HEMATOCRIT 25.8 % (36-54); HEMOGLOBIN 8.6 g/dL (14.0-18.0); LYMPHOCYTES % (AUTO) 13.6 % (20.5-51.5); MEAN CORPUSCULAR HEMOGLOBIN 29 pg (27-31); MEAN CORPUSCULAR HGB CONC 33 % (32-36); MEAN CORPUSCULAR VOLUME 86 fL (79.0-98.0); MONOCYTES # (AUTO) 0.4 K/uL (0.0-1.0); MONOCYTES % (AUTO) 5.6 % (1.7-9.3); NEUTROPHILS # (AUTO) 5.6 K/uL (1.8-7.7); PLATELET COUNT (AUTO) 218 K/uL (130-430); RED BLOOD CELL COUNT(AUTO) 2.99 MIL/uL (4.2-6.2); WHITE BLOOD COUNT (AUTO) 7.4 K/uL (4.8-10.8)
[2021-06-25 07:54] LABS: CALCIUM 7.9 mg/dL (8.4-11.0); CREATININE 0.34 mg/dL (0.55-1.30); POTASSIUM 3.7 mmol/L (3.5-5.1)
[2021-06-25] MEDS: FERROUS SULFATE 300 MG/5 ML UDC PO SCH (08:09)
[2021-06-25] MEDS: MULTIVITAMINS TAB 1 TABLET PO SCH (08:11)
[2021-06-25] MEDS: BISACODYL 5 MG TABLET.DR (DULCOLAX) PO SCH (08:11)
[2021-06-25] MEDS: POTASSIUM CHLORIDE 20 MEQ TAB.PRT.SR PO SCH ×2 (08:11→21:08)
[2021-06-25] MEDS: ASCORBIC ACID 500 MG TABLET PO SCH (08:11)
[2021-06-25] MEDS: METOPROLOL TARTRATE 50 MG TABLET PO SCH ×2 (08:14→21:09)
[2021-06-25 08:30] VITALS: BP_SYST 108
--- NOTE | 2021-06-25 08:30 | NUR ---
Rec'd pt laying in bed sleeping at 0700, alert, non verbal. Pt does not appear to be in pain. PICC noted to R Arm- 2 lumen- infusing IVF, IV ABX and panto infusion. CSMW satisfactory. No edema noted. Lungs clear, diminished to bases. No SOB/cough noted. 2L to trach-TBAR 100%. BSx4. Void QS- loyd insitu. G tube noted- infusing tube feed- attempt to flush meds unsuccessful- to call doc. No apparent N+V. VSS- bp slightly soft- held metoprolol. Dressing noted to R shoulder, sacral and R heel- CDI. Foot drop noted. Tele insitu. No other voiced concerns. Will continue to monitor.
[2021-06-25] MEDS: BALSAM PERU/CASTOR OIL 56.7 GM OINT...G. TP SCH (09:32)
--- NOTE | 2021-06-25 09:49 | NUR ---
Income Tax Consultant paged Dr. Rinaldi in regards to g tube not flushing. Will await call back
--- NOTE | 2021-06-25 11:09 | NUR ---
Manager Android paged Dr. Rinaldi in regards to g tube not flushing for the second time. Will await call back
[2021-06-25 12:00] VITALS: BP_SYST 106
--- NOTE | 2021-06-25 12:30 | NUR ---
Dr Moore called and stated he would be in this afternoon to come look at g tube.
--- NOTE | 2021-06-25 13:49 | NUR ---
PICC dressing changed per protocol. Both port caps changed and flushed with 10 ml NS, blood return noted on both lumens. Pt tolerated well.
[2021-06-25 16:00] VITALS: BP_SYST 107
--- NOTE | 2021-06-25 18:00 | NUR ---
Pt resting in bed. no voiced concerns. call pino in reach, bed in lowest position. IVF infusing. [facility], Will continue to monitor.
--- NOTE | 2021-06-25 19:30 | NUR ---
Opening notes Received report from day shift. Dr Rinaldi at bedside unclogging pt Gtube, was able to successfully unclog it. Tube feeding continued. DOMINGO midline intact and patent with fluids running at ordered rate. Escamilla catheter intact and draining by gravity. Fall and safety precautions in place with bed in lowest position, bed alarm on, and call light within reach
[2021-06-25 20:00] VITALS: BP_SYST 120
--- NOTE | 2021-06-26 00:15 | NUR ---
Rounds Pt resting in bed. No s/s of acute distress. Fall and safety checks in place
[2021-06-26 01:01] VITALS: BP_SYST 115
[2021-06-26] MEDS: D5W 1,000 ML IV SCH (01:34)
[2021-06-26] MEDS: PANTOPRAZOLE SODIUM 40 MG in NS 50 ML IV SCH ×2 (03:33→07:41)
[2021-06-26 04:21] VITALS: BP_SYST 120
[2021-06-26] MEDS: CEFIDEROCOL SULFATE TOSYLATE 2 GM in NS 100 ML IV SCH ×3 (06:22→21:15)
[2021-06-26] MEDS: FERROUS SULFATE 300 MG/5 ML UDC PO SCH (07:40)
[2021-06-26] MEDS: BISACODYL 5 MG TABLET.DR (DULCOLAX) PO SCH (07:40)
[2021-06-26] MEDS: ASCORBIC ACID 500 MG TABLET PO SCH (07:40)
[2021-06-26] MEDS: METOPROLOL TARTRATE 50 MG TABLET PO SCH ×2 (07:40→21:15)
[2021-06-26] MEDS: POTASSIUM CHLORIDE 20 MEQ TAB.PRT.SR PO SCH ×2 (07:41→21:14)
[2021-06-26] MEDS: BALSAM PERU/CASTOR OIL 56.7 GM OINT...G. TP SCH (07:41)
[2021-06-26] MEDS: MULTIVITAMINS TAB 1 TABLET PO SCH (07:41)
[2021-06-26 08:30] VITALS: BP_SYST 111
--- NOTE | 2021-06-26 08:30 | NUR ---
Rec'd pt laying in bed sleeping at 0700, alert, non verbal. Pt does not appear to be in pain. PICC noted to R Arm- 2 lumen- infusing IVF, IV ABX and panto infusion. CSMW satisfactory. No edema noted. Lungs clear, diminished to bases. No SOB/cough noted. 2L to trach-TBAR 100%. BSx4. Void QS- loyd insitu. G tube noted- infusing tube feed, meds flushed with ease. No apparent N+V. VSS. Dressing noted to R shoulder, sacral and R heel- CDI. Foot drop noted. Tele insitu. No other voiced concerns. Will continue to monitor.
[2021-06-26 08:33] LABS: CALCIUM 8.6 mg/dL (8.4-11.0); CREATININE 0.34 mg/dL (0.55-1.30); POTASSIUM 4.1 mmol/L (3.5-5.1)
[2021-06-26 08:54] LABS: BASOPHILS % (AUTO) 0.6 % (0.0-2.0); EOSINOPHILS # (AUTO) 0.4 K/uL (0.0-0.4); EOSINOPHILS % (AUTO) 5.2 % (0.0-4.0); HEMATOCRIT 27.1 % (36-54); HEMOGLOBIN 9.1 g/dL (14.0-18.0); LYMPHOCYTES # (AUTO) 1.1 K/uL (1.0-5.5); MEAN CORPUSCULAR HEMOGLOBIN 29 pg (27-31); MEAN CORPUSCULAR HGB CONC 34 % (32-36); MEAN CORPUSCULAR VOLUME 87 fL (79.0-98.0); MONOCYTES # (AUTO) 0.5 K/uL (0.0-1.0); MONOCYTES % (AUTO) 7.3 % (1.7-9.3); NEUTROPHILS # (AUTO) 5.3 K/uL (1.8-7.7); NEUTROPHILS % (AUTO) 71.9 % (40.0-70.0); PLATELET COUNT (AUTO) 315 K/uL (130-430); RED BLOOD CELL COUNT(AUTO) 3.11 MIL/uL (4.2-6.2); RED CELL DISTRIBUTION WIDTH 17.7 % (9.0-15.0); WHITE BLOOD COUNT (AUTO) 7.4 K/uL (4.8-10.8)
[2021-06-26 12:52] VITALS: BP_SYST 117
--- NOTE | 2021-06-26 13:25 | NUR ---
Discharge Planning: DCP faxed pt referral to [facility] [phone] DCP to follow up.
[2021-06-26 16:00] VITALS: BP_SYST 115
--- NOTE | 2021-06-26 16:25 | NUR ---
CM: REQUEST PATHOLOGY RESULTS, STILL PENDING, HYDRAULIC SPINNER STATES THEY SHOULD BE RESULTED LATER TODAY.
--- NOTE | 2021-06-26 18:13 | NUR ---
Pt resting in bed. no voiced concerns. IVF infusing. Tube feed infusing. Call pino in reach. Bed in low position. Will continue to monitor.
[2021-06-26] MEDS: PANTOPRAZOLE SODIUM 40 MG/VIAL (PROTONIX) IVP SCH (21:14)
[2021-06-27 00:43] VITALS: BP_SYST 124
[2021-06-27] MEDS: D5W 1,000 ML IV SCH (01:32)
[2021-06-27 02:23] VITALS: BP_SYST 113
[2021-06-27] MEDS: CEFIDEROCOL SULFATE TOSYLATE 2 GM in NS 100 ML IV SCH ×2 (06:38→13:16)
[2021-06-27 07:42] LABS: BASOPHILS % (AUTO) 0.5 % (0.0-2.0); CALCIUM 8.6 mg/dL (8.4-11.0); CREATININE 0.32 mg/dL (0.55-1.30); EOSINOPHILS # (AUTO) 0.2 K/uL (0.0-0.4); EOSINOPHILS % (AUTO) 2.5 % (0.0-4.0); HEMATOCRIT 27.9 % (36-54); HEMOGLOBIN 9.3 g/dL (14.0-18.0); LYMPHOCYTES # (AUTO) 1.1 K/uL (1.0-5.5); LYMPHOCYTES % (AUTO) 12.9 % (20.5-51.5); MEAN CORPUSCULAR HEMOGLOBIN 29 pg (27-31); MEAN CORPUSCULAR HGB CONC 33 % (32-36); MEAN CORPUSCULAR VOLUME 87 fL (79.0-98.0); MONOCYTES # (AUTO) 0.7 K/uL (0.0-1.0); MONOCYTES % (AUTO) 7.9 % (1.7-9.3); NEUTROPHILS # (AUTO) 6.6 K/uL (1.8-7.7); NEUTROPHILS % (AUTO) 76.2 % (40.0-70.0); PLATELET COUNT (AUTO) 399 K/uL (130-430); RED BLOOD CELL COUNT(AUTO) 3.22 MIL/uL (4.2-6.2); RED CELL DISTRIBUTION WIDTH 18.1 % (9.0-15.0); WHITE BLOOD COUNT (AUTO) 8.7 K/uL (4.8-10.8)
[2021-06-27] MEDS: PANTOPRAZOLE SODIUM 40 MG/VIAL (PROTONIX) IVP SCH (07:52)
[2021-06-27] MEDS: FERROUS SULFATE 300 MG/5 ML UDC PO SCH (07:52)
[2021-06-27] MEDS: METOPROLOL TARTRATE 50 MG TABLET PO SCH (07:53)
[2021-06-27] MEDS: BALSAM PERU/CASTOR OIL 56.7 GM OINT...G. TP SCH (07:53)
[2021-06-27] MEDS: ASCORBIC ACID 500 MG TABLET PO SCH (07:53)
[2021-06-27] MEDS: MULTIVITAMINS TAB 1 TABLET PO SCH (07:53)
[2021-06-27] MEDS: BISACODYL 5 MG TABLET.DR (DULCOLAX) PO SCH (07:53)
[2021-06-27] MEDS: POTASSIUM CHLORIDE 20 MEQ TAB.PRT.SR PO SCH (07:53)
[2021-06-27 08:30] VITALS: BP_SYST 112
--- NOTE | 2021-06-27 08:30 | NUR ---
Rec'd pt laying in bed sleeping at 0700, alert, non verbal. Pt does not appear to be in pain. PICC noted to R Arm- 2 lumen- infusing IVF/IV ABX. CSMW satisfactory. No edema noted. Lungs clear, diminished to bases. No SOB/cough noted. 2L to trach-TBAR 100%. BSx4. Void QS- loyd insitu. G tube noted- infusing tube feed, meds flushed with ease. No apparent N+V. VSS. Dressing noted to R shoulder, sacral and R heel- Dressings all changed, CDI. Foot drop noted. Tele insitu. No other voiced concerns. Will continue to monitor.
--- NOTE | 2021-06-27 08:49 | NUR ---
Case mgt: faxed dc order to [facility] fax#[phone]--DC coordinator Claudia tobias f/u for bed--Dispo code 06-- CARLIN
--- NOTE | 2021-06-27 09:39 | NUR ---
ID PAGED: CALLED DR ROSENBERG' S EXCHANGE AND SPOKE WITH JANET FOR VERIFICATION OF ISOLATION ROOM.
--- NOTE | 2021-06-27 11:23 | NUR ---
PAGED PAGED THOMAS LARA AT [phone] SPOKE WITH SAMIR.
--- NOTE | 2021-06-27 11:50 | NUR ---
Case mgt: Rec'd nursing order to dc covid isolation--I called Marva at [facility] and confirmed with her--Rm#[phone] given and she wants call back with ETA--ry Taylor coordinator, will f/u for ambulance transport for pt-trach/PEG/Vent--CHAMP GILLIS
--- NOTE | 2021-06-27 12:05 | NUR ---
Case mgt-I called pt's dad Urban at [phone] to notify him of transfer of pt back to [facility] today-He's agreeable but said he and his family just arrived from 3000 miles away to see pt and they will be here in 10-15 minutes to see pt here at hospital. I called [facility]-s/w Cristina who said pt will be in room with a window and they can hold phone to pt's ear and family can be at the window, but no inside visitation is allowed at [facility]-Nurse Nora given rm#[phone] at [facility] and informed her we are working on ambulance transport. CHAMP GILLIS
--- NOTE | 2021-06-27 12:43 | NUR ---
Discharge Planning: DCP arranged transport with [facility] [phone] [facility] with [facility] will P/U at 4:00pmto [facility] [phone] Rm [phone]. DCP made CM and nurse were made aware, patient packet taken to nurse station.
[2021-06-27 12:46] VITALS: BP_SYST 106
[2021-06-27 15:19] VITALS: BP_SYST 106
--- NOTE | 2021-06-27 15:47 | NUR ---
Case mgt: I s/w Urban, pt's father around 1500 today-I explained pt is returning to [facility] at 4pm via ambulance and that per Cristina at [facility], pt's in a room with a window and staff can hold phone to pt's ear while they are at the window. I also explained they can ask to speak with management at [facility] to see if a visitation exception can be made as they travelled from 3000 miles away to see pt. I explained to Urban that this a the usual visitation policy at [facility] during increased Omicron virus breakout--CHAMP RN
--- NOTE | 2021-06-27 15:57 | NUR ---
Report called to Brii at [facility]. All questions answered.
--- NOTE | 2021-06-27 16:20 | NUR ---
Pt left with transport back to [facility]. Family aware and were here when pt left. PICC line insitu and both lines clamped. Escamilla insitu. PEG tube insitu and clamped.
--- NOTE | 2021-06-29 08:49 | NUR ---
Senior Major Gifts Officer PULP COOKER received a request from elementary school registrarTika, discharges pts. parents, Urban and Caty Duggan were in the lobby and wanted to speak to the Christine, but she is not working today. PULP COOKER went to met with both parents and pts. sister. Parents reside in [place] and had some paperwork from their assistant prosecuting attorney. Parents wanted to know if the attending MD could fill them out. Paperwork is stating pt. is incapacitated. PULP COOKER looked up pts. chart. The attending was Patito Trujillo MD. PULP COOKER gave the family Dr. Lopez's office number and stated they can call to see if could fill out paperwork (as this would be more direct). PULP COOKER also gave family her card with her email if the family wanted to email paperwork to her she could leave it on the floor for . PULP COOKER asked if there was anything else the family needed. PULP COOKER will remain available as needed.
== END 2021-06-27 16:20 | DRG 720 ==
LOC: SED 00:28 → STU 04:51 → SIC 06-18 13:23 → SMU 06-23 11:50 → STU 06-23 12:01
PROVIDERS: ADMIT Family Medicine; ATTEND Family Medicine
PROC: 05HY33Z Insertion of Infusion Device into Upper Vein, Percutaneous Approach (ICD-10-PCS; 2021-06-18)
PROC: B54MZZA Ultrasonography of Right Upper Extremity Veins, Guidance (ICD-10-PCS; 2021-06-18)
PROC: 5A1935Z Respiratory Ventilation, Less than 24 Consecutive Hours (ICD-10-PCS; principal; 2021-06-19)
PROC: 30233N1 Transfusion of Nonautologous Red Blood Cells into Peripheral Vein, Percutaneous Approach (ICD-10-PCS; 2021-06-19)
PROC: 0DB58ZX Excision of Esophagus, Via Natural or Artificial Opening Endoscopic, Diagnostic (ICD-10-PCS; 2021-06-21)
PROC: 0DB68ZX Excision of Stomach, Via Natural or Artificial Opening Endoscopic, Diagnostic (ICD-10-PCS; 2021-06-21)
DX: A41.50 Gram-negative sepsis, unspecified (principal); R40.20 Unspecified coma; J69.0 Pneumonitis due to inhalation of food and vomit; R65.21 Severe sepsis with septic shock; G82.50 Quadriplegia, unspecified; E43 Unspecified severe protein-calorie malnutrition; J96.10 Chronic respiratory failure, unspecified whether with hypoxia or hypercapnia; G93.1 Anoxic brain damage, not elsewhere classified; R40.3 Persistent vegetative state; E87.0 Hyperosmolality and hypernatremia; N39.0 Urinary tract infection, site not specified; Z16.19 Resistance to other specified beta lactam antibiotics; E87.6 Hypokalemia; R13.10 Dysphagia, unspecified; S06.9X0A Unspecified intracranial injury without loss of consciousness, initial encounter; D64.9 Anemia, unspecified; Z20.822 Contact with and (suspected) exposure to COVID-19; W18.39XA Other fall on same level, initial encounter; K22.9 Disease of esophagus, unspecified; K29.71 Gastritis, unspecified, with bleeding; Z74.01 Bed confinement status; Z93.1 Gastrostomy status; Z93.0 Tracheostomy status; Z79.82 Long term (current) use of aspirin; Z79.899 Other long term (current) drug therapy; Z68.1 Body mass index [BMI] 19.9 or less, adult; Y93.89 Activity, other specified; Y92.89 Other specified places as the place of occurrence of the external cause; Y99.8 Other external cause status
CPT/HCPCS: 36415; 43239; 71045; 71270-TC; 76376; 80048; 80053; 81000; 82272; 82962; 83605; 83735; 84484; 85025; 85610-TC; 85730-TC; 86886; 86900; 86901; 86920; 87040; 87081; 87086; 87186-TC; 88305; 88312; 88313; 88342; 93005; 94640; 94760; 96365; 96366; 96368; 99291; C9113; G0378; J0696; J0699; J0713; J1200; J1644; J1650; J2185; J2250; J2405; J2543; J2765; J2930; J3010; J3370; J3480; J7050; J7060; J7613; P9021; P9046; Q9967

== ENCOUNTER 2021-08-21 12:34 | Emergency (ER) | payer MEDICAID ==
[~2021-08-21] VITALS: Ht 170.2 cm; Wt 54.4 kg
[~2021-08-21 12:34] MED LIST changes: -ASPI-1155 PO; -LOVI30 SQ
[2021-08-21 12:35] VITALS: BP_SYST 101
--- NOTE | 2021-08-21 12:54 | NUR ---
Patient to ER bed 4 for evaluation. Side rails up. Report given to Harriet GILLIS.
--- NOTE | 2021-08-21 12:57 | NUR ---
Pt being transported to CT scan via [facility]
--- NOTE | 2021-08-21 13:00 | NUR ---
Dr. Becker at bedside examining pt.
--- NOTE | 2021-08-21 13:40 | NUR ---
PT ARRIVED VIA AMBULANCE FROM [facility]. PT VITALS WITHIN NORMAL LIMITS, NO SIGNS OF DISTRESS, PT RESPONSE TO VOICE BUT IS NON-VERBAL.
--- NOTE | 2021-08-21 14:24 | NUR ---
changed pt simaey 16 frnch collected urine specimen. pt not in distress. no change in vital signs.
[2021-08-21 14:37] LABS: BILIRUBIN,URINE 1+ (NEGATIVE); BLOOD, URINE 3+ (NEGATIVE); CLARITY/URINE CLOUDY (CLEAR); COLOR,URINE RED (YELLOW); GLUCOSE,URINE NEGATIVE (NEGATIVE); KETONES,URINE NEGATIVE (NEGATIVE); LEUKOCYTE ESTERASE ,URINE 2+ (NEGATIVE); NITRITE, URINE POSITIVE (NEGATIVE); PH,URINE 8.5 (5.0-8.0); PROTEIN URINE 2+ (NEGATIVE)
[2021-08-21] MEDS ORDERED: cefTRIAXone 1 GM IVPB PREMIX 50 ML IV ONE (15:15)
[2021-08-21] MEDS ORDERED: NACL 0.9% 1,000 ML IV ONE (15:15)
[2021-08-21 15:18] LABS: INR 1.1 (0.80-1.20); PROTHROMBIN TIME 11.6 SECS (9.5-12.5)
[2021-08-21 15:20] LABS: CALCIUM 9.4 mg/dL (8.4-11.0); CREATININE 0.37 mg/dL (0.55-1.30); POTASSIUM 3.7 mmol/L (3.5-5.1)
[2021-08-21 15:24] LABS: BASOPHILS % (AUTO) 0.3 % (0.0-2.0); EOSINOPHILS # (AUTO) 0.1 K/uL (0.0-0.4); EOSINOPHILS % (AUTO) 1.3 % (0.0-4.0); HEMATOCRIT 32.3 % (36-54); MEAN CORPUSCULAR HEMOGLOBIN 31 pg (27-31); MEAN CORPUSCULAR HGB CONC 34 % (32-36); MEAN CORPUSCULAR VOLUME 92 fL (79.0-98.0); MONOCYTES # (AUTO) 0.8 K/uL (0.0-1.0); MONOCYTES % (AUTO) 10.1 % (1.7-9.3); NEUTROPHILS # (AUTO) 5.7 K/uL (1.8-7.7); NEUTROPHILS % (AUTO) 75.3 % (40.0-70.0); PLATELET COUNT (AUTO) 275 K/uL (130-430); RED BLOOD CELL COUNT(AUTO) 3.49 MIL/uL (4.2-6.2); RED CELL DISTRIBUTION WIDTH 14.1 % (9.0-15.0); WHITE BLOOD COUNT (AUTO) 7.6 K/uL (4.8-10.8)
[2021-08-21 15:25] LABS: ALBUMIN 3.3 g/dL (3.4-4.8); TOTAL BILIRUBIN 0.7 mg/dL (0.0-1.0)
[2021-08-21 15:25] LABS: BACTERIA,URINE MODERATE /HPF (None Seen); RBC,URINE >100 /HPF (0-3)
[2021-08-21 15:26] LABS: MUCUS,URINE 1+ /LPF (None Seen); TRIPLE PHOSPHATE CRYSTAL,UR 0-10 /HPF (None Seen)
--- NOTE | 2021-08-21 15:53 | NUR ---
# 20 gauge angiocath placed to Left Hand. Use of asceptic technique. Opsite placed over site. Blood return noted. Blood for lab drawn from site. Flushed with 10 cc of normal saline. No evidence of infiltration noted. Patient tolerated well.
[2021-08-21] MEDS ORDERED: NITR-85 PO (19:38)
[2021-08-21 20:30] VITALS: BP_SYST 138
--- NOTE | 2021-08-21 20:30 | NUR ---
TRANSFER BACK TO FACILITY Patient transferred back to [facility] by BLS transport. Report given to Nia. No belongings brought with patient. VSS at transport.
== END 2021-08-21 20:30 | disposition home or self-care (01) ==
LOC: SED 12:34
DX: R31.9 Hematuria, unspecified (principal); I10 Essential (primary) hypertension; Z88.9 Allergy status to unspecified drugs, medicaments and biological substances
CPT/HCPCS: 36415; 51702; 74176; 76376; 80053; 81000; 85025; 85610; 85730; 87086; 96365; 99285; J0696; J7030; 96361

== ENCOUNTER 2021-09-17 17:43 | Emergency (ER) | payer MEDICAID ==
[~2021-09-17] VITALS: Ht 170.2 cm; Wt 54.4 kg
[~2021-09-17 17:43] MED LIST changes: +NITR-85 PO
[2021-09-17 17:45] VITALS: BP_SYST 140
--- NOTE | 2021-09-17 17:45 | NUR ---
Placed in room 8 . Placed on monitor technician, blood pressure machine and pulse oximeter. To gown for exam. Side rails up. Report given to CARLIN ROCHE.
--- NOTE | 2021-09-17 18:19 | NUR ---
In ER bed 8 Sent by detention because Supra pubic Cath was not draining. has seen
[2021-09-17] MEDS ORDERED: cefTRIAXone 1 GM in LIDOCAINE 1%, 20 ML MDV 2.1 ML IM ONE (18:30)
--- NOTE | 2021-09-17 19:35 | NUR ---
Stable. VSS. BP adequate. has completed cath replacement. Draining clear yellow urine. Abx given as ordered. To be sent back to care home Awaiting ambulance
--- NOTE | 2021-09-17 20:16 | NUR ---
PT IN BED RESTING, AWAKE. PT IS NON VERBAL. PT AWAITING DISCHARGE AND TRANSFER TO [facility]. WILL MONITOR NEEDED
--- NOTE | 2021-09-17 23:34 | NUR ---
ARNOL CALL A CAR SET UP FISHER MUSSEL TIME IS 0400 WITH [facility]
[2021-09-18] MEDS ORDERED: CEFU250T85 PO (01:15)
[2021-09-18 01:39] VITALS: BP_SYST 137
--- NOTE | 2021-09-18 01:42 | NUR ---
PT REPORTS GIVEN TO RODGER FOR TRANSFER BACK TO [facility]. PT IN STABLE CONDITION. NEW PRESCRITPTION AND HOMECARE INSTRUCTIONS. GIVEN TO EMT CHARO CHAPA AND JANET RILEY RIG 900. ALL QUESTIONS ANSWERED, PT IN STABLE CONDITION.
== END 2021-09-18 01:46 ==
LOC: SED 17:43
DX: T83.098A Other mechanical complication of other urinary catheter, initial encounter (principal); I10 Essential (primary) hypertension; Z88.9 Allergy status to unspecified drugs, medicaments and biological substances
CPT/HCPCS: 51702; 96372; 99284; J0696; J2001; 99283

== ENCOUNTER 2021-11-29 19:01 | Inpatient (IN) | payer MEDICAID ==
[~2021-11-29] VITALS: Ht 160 cm; Wt 54.4 kg
[~2021-11-29 19:01] MED LIST changes: +CEFU250T85 PO
[2021-11-29 19:35] VITALS: BP_SYST 145
[2021-11-29] MEDS ORDERED: NACL 0.9% 1,000 ML IV ONE (20:15)
[2021-11-29 21:00] LABS: BASOPHILS % (AUTO) 0.1 % (0.0-2.0); HEMATOCRIT 40.4 % (36-54); HEMOGLOBIN 13.9 g/dL (14.0-18.0); LYMPHOCYTES # (AUTO) 0.5 K/uL (1.0-5.5); LYMPHOCYTES % (AUTO) 2.8 % (20.5-51.5); MEAN CORPUSCULAR HEMOGLOBIN 31 pg (27-31); MEAN CORPUSCULAR HGB CONC 35 % (32-36); MEAN CORPUSCULAR VOLUME 90 fL (79.0-98.0); MONOCYTES # (AUTO) 1.3 K/uL (0.0-1.0); MONOCYTES % (AUTO) 6.9 % (1.7-9.3); NEUTROPHILS # (AUTO) 16.5 K/uL (1.8-7.7); NEUTROPHILS % (AUTO) 90.2 % (40.0-70.0); PLATELET COUNT (AUTO) 246 K/uL (130-430); RED BLOOD CELL COUNT(AUTO) 4.47 MIL/uL (4.2-6.2); RED CELL DISTRIBUTION WIDTH 13.5 % (9.0-15.0); WHITE BLOOD COUNT (AUTO) 18.3 K/uL (4.8-10.8)
[2021-11-29 21:05] LABS: CALCIUM 9.7 mg/dL (8.4-11.0); CREATININE 0.96 mg/dL (0.55-1.30); POTASSIUM 4.1 mmol/L (3.5-5.1)
[2021-11-29 21:13] LABS: ALBUMIN 3.7 g/dL (3.4-4.8); TOTAL BILIRUBIN 1.6 mg/dL (0.0-1.0)
[2021-11-29 22:15] LABS: BILIRUBIN,URINE NEGATIVE (NEGATIVE); BLOOD, URINE 2+ (NEGATIVE); CLARITY/URINE SL CLOUDY (CLEAR); GLUCOSE,URINE NEGATIVE (NEGATIVE); KETONES,URINE NEGATIVE (NEGATIVE); LEUKOCYTE ESTERASE ,URINE 3+ (NEGATIVE); NITRITE, URINE POSITIVE (NEGATIVE); PH,URINE 8.5 (5.0-8.0); PROTEIN URINE TRACE (NEGATIVE); UROBILINOGEN,URINE 0.2 (0.2-1.0)
[2021-11-29] MEDS ORDERED: cefTRIAXone 1 GM IVPB PREMIX 50 ML IV ONE (22:15)
[2021-11-29 23:58] LABS: COLOR,URINE YELLOW (YELLOW)
[2021-11-30] VITALS (7 sets, daily range): BP systolic 107–128
[2021-11-30] MEDS ORDERED: NACL 0.9% 1,000 ML IV ONE
[2021-11-30] MEDS: D5NS 500 ML IV SCH ×5 (00:15→20:15)
[2021-11-30 00:23] LABS: BACTERIA,URINE MANY /HPF (None Seen); WBC,URINE 20-50 /HPF (0-3)
[2021-11-30 00:24] LABS: MUCUS,URINE None Seen /LPF (None Seen); TRIPLE PHOSPHATE CRYSTAL,UR 0-10 /HPF (None Seen); URINE AMORPHOUS PHOSPHATES 2+ /HPF (None Seen)
[2021-11-30] MEDS ORDERED: VANCOMYCIN HCL 1,000 MG in NS 250 ML IV ONE (00:30)
[2021-11-30] MEDS ORDERED: ACETAMINOPHEN 500 MG TABLET GT ONE (05:45)
[2021-11-30] MEDS ORDERED: ALBUTEROL SULFATE 0.083% 2.5 MG/3 ML VIAL.NEB INH PRN (07:15)
[2021-11-30] MEDS: NACL 0.9% 1,000 ML IV SCH ×2 (07:15→17:15)
[2021-11-30] MEDS ORDERED: ONDANSETRON HCL 4 MG/2 ML VIAL IVP PRN (08:30)
[2021-11-30] MEDS ORDERED: DOCUSATE SODIUM 100 MG CAPSULE PO PRN (08:45)
[2021-11-30] MEDS ORDERED: POTASSIUM CHLORIDE 20 MEQ TAB.PRT.SR PO PRN (08:45)
[2021-11-30] MEDS ORDERED: LORazepam 2 MG/ML VIAL IVP PRN (08:45)
[2021-11-30] MEDS ORDERED: MAGNESIUM SULFATE 50 ML IV PRN (08:45)
[2021-11-30] MEDS ORDERED: NALOXONE HCL 0.4 MG/ML AMP (NARCAN) IVP PRN ×2 (08:45)
[2021-11-30] MEDS ORDERED: MORPHINE 2 MG/ML INJ. SYRINGE IVP PRN ×2 (08:45)
[2021-11-30] MEDS ORDERED: ZOLPIDEM TARTRATE 5 MG TABLET PO PRN (08:45)
[2021-11-30] MEDS ORDERED: MUPIROCIN 2% TOPICAL OINTMENT 22 GM NS PRN (08:45)
[2021-11-30] MEDS: BISACODYL 5 MG TABLET.DR (DULCOLAX) PO SCH (09:32)
[2021-11-30] MEDS: FERROUS SULFATE 300 MG/5 ML UDC PO SCH (09:32)
[2021-11-30] MEDS: METOPROLOL TARTRATE 50 MG TABLET PO SCH ×2 (09:32→21:32)
[2021-11-30] MEDS: MULTIVITAMINS TAB 1 TABLET PO SCH (09:32)
[2021-11-30] MEDS: BALSAM PERU/CASTOR OIL 56.7 GM OINT...G. TP SCH (09:35)
[2021-11-30] MEDS: VANCOMYCIN HCL 750 MG in NS 250 ML IV SCH (14:25)
[2021-11-30] MEDS ORDERED: BISACODYL 5 MG TABLET.DR (DULCOLAX) PO ONE (15:30)
[2021-11-30] MEDS ORDERED: MENTHOL/ZINC OXIDE 113 GM OINT. TP PRN (17:30)
[2021-11-30] MEDS: ACETAMINOPHEN 325 MG TABLET PO PRN (20:17)
[2021-11-30] MEDS: PIPERACILLIN/TAZO 4.5GM/DEX-IS 100 ML IV SCH (23:36)
[2021-12-01] VITALS: BP_SYST 111
[2021-12-01 01:04] VITALS: BP_SYST 114
[2021-12-01] MEDS: D5NS 500 ML IV SCH (02:00)
[2021-12-01] MEDS: NACL 0.9% 1,000 ML IV SCH ×3 (03:15→23:15)
[2021-12-01] MEDS: VANCOMYCIN HCL 750 MG in NS 250 ML IV SCH (03:35)
[2021-12-01] MEDS: ONDANSETRON HCL 4 MG/2 ML VIAL IVP PRN ×2 (03:39→13:46)
[2021-12-01] MEDS: PIPERACILLIN/TAZO 4.5GM/DEX-IS 100 ML IV SCH ×3 (06:22→21:24)
[2021-12-01 07:26] LABS: BASOPHILS % (AUTO) 0.1 % (0.0-2.0); EOSINOPHILS % (AUTO) 0.4 % (0.0-4.0); HEMATOCRIT 36.7 % (36-54); HEMOGLOBIN 12.4 g/dL (14.0-18.0); LYMPHOCYTES # (AUTO) 0.4 K/uL (1.0-5.5); LYMPHOCYTES % (AUTO) 3.6 % (20.5-51.5); MEAN CORPUSCULAR HEMOGLOBIN 31 pg (27-31); MEAN CORPUSCULAR HGB CONC 34 % (32-36); MEAN CORPUSCULAR VOLUME 92 fL (79.0-98.0); MONOCYTES # (AUTO) 0.5 K/uL (0.0-1.0); MONOCYTES % (AUTO) 4.2 % (1.7-9.3); NEUTROPHILS # (AUTO) 10.2 K/uL (1.8-7.7); NEUTROPHILS % (AUTO) 91.7 % (40.0-70.0); PLATELET COUNT (AUTO) 145 K/uL (130-430); RED BLOOD CELL COUNT(AUTO) 3.99 MIL/uL (4.2-6.2); RED CELL DISTRIBUTION WIDTH 13.3 % (9.0-15.0); WHITE BLOOD COUNT (AUTO) 11.1 K/uL (4.8-10.8)
[2021-12-01 08:00] VITALS: BP_SYST 121
[2021-12-01 08:05] VITALS: BP_SYST 121
[2021-12-01 08:34] LABS: ALBUMIN 2.8 g/dL (3.4-4.8); CREATININE 0.93 mg/dL (0.55-1.30); POTASSIUM 3.6 mmol/L (3.5-5.1); THYROID STIMULATING HORMONE 1.2 uIu/mL (0.36-3.74); TOTAL BILIRUBIN 1.1 mg/dL (0.0-1.0)
[2021-12-01] MEDS ORDERED: NACL 0.9% 1,000 ML IV SCH (09:00)
[2021-12-01] MEDS ORDERED: BALSAM PERU/CASTOR OIL 56.7 GM OINT...G. TP SCH (09:00)
[2021-12-01] MEDS: BISACODYL 5 MG TABLET.DR (DULCOLAX) PO SCH (09:38)
[2021-12-01] MEDS: DOCUSATE SODIUM 100 MG CAPSULE PO PRN (09:38)
[2021-12-01] MEDS: FERROUS SULFATE 300 MG/5 ML UDC PO SCH (09:38)
[2021-12-01] MEDS: METOPROLOL TARTRATE 50 MG TABLET PO SCH ×2 (09:39→21:24)
[2021-12-01] MEDS: MULTIVITAMINS TAB 1 TABLET PO SCH (09:39)
[2021-12-01] MEDS: BALSAM PERU/CASTOR OIL 56.7 GM OINT...G. TP SCH (10:00)
[2021-12-01 12:41] VITALS: BP_SYST 117
[2021-12-01 16:38] VITALS: BP_SYST 122
[2021-12-02 01:08] VITALS: BP_SYST 110
[2021-12-02] MEDS: PIPERACILLIN/TAZO 4.5GM/DEX-IS 100 ML IV SCH ×3 (05:07→21:00)
[2021-12-02 07:42] LABS: CALCIUM 8.5 mg/dL (8.4-11.0); CREATININE 0.95 mg/dL (0.55-1.30); POTASSIUM 3.5 mmol/L (3.5-5.1)
[2021-12-02 08:00] VITALS: BP_SYST 113
[2021-12-02] MEDS: NACL 0.9% 1,000 ML IV SCH ×2 (09:15→18:13)
[2021-12-02 11:16] LABS: BASOPHILS % (AUTO) 0.7 % (0.0-2.0); EOSINOPHILS # (AUTO) 0.1 K/uL (0.0-0.4); EOSINOPHILS % (AUTO) 1.7 % (0.0-4.0); HEMOGLOBIN 10.9 g/dL (14.0-18.0); LYMPHOCYTES # (AUTO) 0.6 K/uL (1.0-5.5); LYMPHOCYTES % (AUTO) 9.1 % (20.5-51.5); MEAN CORPUSCULAR HEMOGLOBIN 32 pg (27-31); MEAN CORPUSCULAR HGB CONC 34 % (32-36); MEAN CORPUSCULAR VOLUME 92 fL (79.0-98.0); MONOCYTES # (AUTO) 0.6 K/uL (0.0-1.0); MONOCYTES % (AUTO) 9.7 % (1.7-9.3); NEUTROPHILS # (AUTO) 5.1 K/uL (1.8-7.7); NEUTROPHILS % (AUTO) 78.8 % (40.0-70.0); PLATELET COUNT (AUTO) 119 K/uL (130-430); RED BLOOD CELL COUNT(AUTO) 3.46 MIL/uL (4.2-6.2); RED CELL DISTRIBUTION WIDTH 13.6 % (9.0-15.0); WHITE BLOOD COUNT (AUTO) 6.4 K/uL (4.8-10.8)
[2021-12-02] MEDS: BISACODYL 5 MG TABLET.DR (DULCOLAX) PO SCH (11:43)
[2021-12-02] MEDS: METOPROLOL TARTRATE 50 MG TABLET PO SCH ×2 (11:43→20:55)
[2021-12-02] MEDS: MULTIVITAMINS TAB 1 TABLET PO SCH (11:43)
[2021-12-02] MEDS: FERROUS SULFATE 300 MG/5 ML UDC PO SCH (11:43)
[2021-12-02] MEDS: ACETAMINOPHEN 325 MG TABLET PO PRN (11:44)
[2021-12-02] MEDS: BALSAM PERU/CASTOR OIL 56.7 GM OINT...G. TP SCH (11:44)
[2021-12-02 12:00] VITALS: BP_SYST 112
[2021-12-02 16:00] VITALS: BP_SYST 100
[2021-12-02 20:00] VITALS: BP_SYST 114
[2021-12-03 00:33] VITALS: BP_SYST 112
[2021-12-03] MEDS: PIPERACILLIN/TAZO 4.5GM/DEX-IS 100 ML IV SCH ×3 (05:10→21:35)
[2021-12-03] MEDS: NACL 0.9% 1,000 ML IV SCH ×2 (05:11→14:15)
[2021-12-03 08:21] VITALS: BP_SYST 112
[2021-12-03] MEDS: FERROUS SULFATE 300 MG/5 ML UDC PO SCH (08:58)
[2021-12-03] MEDS: BISACODYL 5 MG TABLET.DR (DULCOLAX) PO SCH (08:58)
[2021-12-03] MEDS: METOPROLOL TARTRATE 50 MG TABLET PO SCH ×2 (08:59→21:34)
[2021-12-03] MEDS: DOCUSATE SODIUM 100 MG CAPSULE PO PRN (08:59)
[2021-12-03] MEDS: BALSAM PERU/CASTOR OIL 56.7 GM OINT...G. TP SCH (08:59)
[2021-12-03] MEDS: MULTIVITAMINS TAB 1 TABLET PO SCH (09:00)
[2021-12-03 09:12] LABS: CALCIUM 8.8 mg/dL (8.4-11.0); CREATININE 0.89 mg/dL (0.55-1.30); POTASSIUM 3.7 mmol/L (3.5-5.1)
[2021-12-03 09:41] VITALS: BP_SYST 124
[2021-12-03 16:02] VITALS: BP_SYST 112
[2021-12-03 21:30] VITALS: BP_SYST 124
[2021-12-04 00:30] VITALS: BP_SYST 119
[2021-12-04] MEDS: NACL 0.9% 1,000 ML IV SCH ×2 (01:45→12:04)
[2021-12-04] MEDS: PIPERACILLIN/TAZO 4.5GM/DEX-IS 100 ML IV SCH ×2 (06:07→14:21)
[2021-12-04 08:00] VITALS: BP_SYST 109
[2021-12-04 09:51] LABS: CALCIUM 8.7 mg/dL (8.4-11.0); CREATININE 0.98 mg/dL (0.55-1.30)
[2021-12-04] MEDS: FERROUS SULFATE 300 MG/5 ML UDC PO SCH (09:54)
[2021-12-04] MEDS: MULTIVITAMINS TAB 1 TABLET PO SCH (09:55)
[2021-12-04] MEDS: METOPROLOL TARTRATE 50 MG TABLET PO SCH (09:55)
[2021-12-04] MEDS: BISACODYL 5 MG TABLET.DR (DULCOLAX) PO SCH (09:55)
[2021-12-04] MEDS: BALSAM PERU/CASTOR OIL 56.7 GM OINT...G. TP SCH (09:56)
[2021-12-04 10:32] LABS: POTASSIUM 3.9 mmol/L (3.5-5.1)
[2021-12-04 11:23] VITALS: BP_SYST 121
[2021-12-04 15:31] VITALS: BP_SYST 111
[2021-12-04 17:02] VITALS: BP_SYST 111
== END 2021-12-04 18:01 | DRG 466 ==
LOC: SED 19:01 → STU 11-30 00:15 → SMU 12-03 14:57
PROVIDERS: ADMIT General Practice; ATTEND General Practice
DX: T83.511A Infection and inflammatory reaction due to indwelling urethral catheter, initial encounter (principal); A41.59 Other Gram-negative sepsis; G82.50 Quadriplegia, unspecified; J96.10 Chronic respiratory failure, unspecified whether with hypoxia or hypercapnia; Z93.0 Tracheostomy status; N39.0 Urinary tract infection, site not specified; L02.413 Cutaneous abscess of right upper limb; Z20.822 Contact with and (suspected) exposure to COVID-19; B96.4 Proteus (mirabilis) (morganii) as the cause of diseases classified elsewhere; R13.10 Dysphagia, unspecified; Z86.16 Personal history of COVID-19; Z87.01 Personal history of pneumonia (recurrent); Z87.440 Personal history of urinary (tract) infections; Z74.01 Bed confinement status; Z87.820 Personal history of traumatic brain injury; Z93.1 Gastrostomy status; Z79.899 Other long term (current) drug therapy
CPT/HCPCS: 36415; 71045; 74018; 80048; 80053; 80202; 81000; 83036; 83605; 83735; 83880; 84443; 84484; 85025; 87040; 87081; 87086; 93005; 94760; 96361; 96365; 96367; 99291; G0378; J0696; J2405; J2543; J7030; J7050

== ENCOUNTER 2022-08-05 16:21 | Inpatient (IN) | payer MEDICAID ==
[~2022-08-05] VITALS: Ht 152.4 cm; Wt 51.7 kg
[~2022-08-05 16:21] MED LIST changes: +ASCO500T20 GT; -ASCO500T20 PO; +BISA-140 PO; -BISA5TAB10 PO; +MULT-1089 GT; -MULT-1089 PO; +ZINC50TA69 GT; -ZINC50TA69 PO
[2022-08-05 16:35] VITALS: BP_SYST 113
[2022-08-05 17:35] LABS: BASOPHILS % (AUTO) 0.3 % (0.0-2.0); HEMATOCRIT 44.6 % (36-54); HEMOGLOBIN 15.4 g/dL (14.0-18.0); LYMPHOCYTES # (AUTO) 0.1 K/uL (1.0-5.5); LYMPHOCYTES % (AUTO) 1.2 % (20.5-51.5); MEAN CORPUSCULAR HEMOGLOBIN 32 pg (27-31); MEAN CORPUSCULAR HGB CONC 35 % (32-36); MEAN CORPUSCULAR VOLUME 94 fL (79.0-98.0); MONOCYTES # (AUTO) 0.1 K/uL (0.0-1.0); MONOCYTES % (AUTO) 0.9 % (1.7-9.3); NEUTROPHILS # (AUTO) 11.9 K/uL (1.8-7.7); NEUTROPHILS % (AUTO) 97.6 % (40.0-70.0); PLATELET COUNT (AUTO) 140 K/uL (130-430); RED BLOOD CELL COUNT(AUTO) 4.77 MIL/uL (4.2-6.2); RED CELL DISTRIBUTION WIDTH 12.2 % (9.0-15.0); WHITE BLOOD COUNT (AUTO) 12.2 K/uL (4.8-10.8)
[2022-08-05 17:44] LABS: INR 1.7 (0.80-1.20); PROTHROMBIN TIME 16.9 SECS (9.5-12.5)
[2022-08-05 17:47] LABS: ANION GAP 9 (5-15); CALCIUM 8.5 mg/dL (8.4-11.0); CHLORIDE 104 mmol/L (98-107); CREATININE 1.26 mg/dL (0.55-1.30); GFR AFRICAN AMERICAN 86 mL/min (>90); GLUCOSE 107 mg/dL (70-99); UREA NITROGEN, BLOOD 31 mg/dL (8-21)
[2022-08-05 17:55] LABS: ALANINE AMINOTRANSFERASE 47 U/L (12-78); ALBUMIN 2.9 g/dL (3.4-4.8); ASPARTATE AMINOTRANSFERASE 21 U/L (10-37); CHOLESTEROL 74 mg/dL (<200); HDL CHOLESTEROL 33 mg/dL (>45); TOTAL BILIRUBIN 3.7 mg/dL (0.0-1.0); TRIGLYCERIDES 66 mg/dL (30-150)
[2022-08-05] MEDS ORDERED: NACL 0.9% 1,000 ML IV ONE (18:30)
[2022-08-05 18:51] LABS: CLARITY/URINE HAZY (CLEAR)
[2022-08-05 18:52] LABS: COLOR,URINE ORANGE (YELLOW)
[2022-08-05 19:00] LABS: BACTERIA,URINE MANY /HPF (None Seen); FINE GRANULAR CASTS,URINE 0-10 /LPF (None Seen); MUCUS,URINE 1+ /LPF (None Seen); RBC,URINE 20-50 /HPF (0-3); WBC,URINE >100 /HPF (0-3)
[2022-08-05] MEDS ORDERED: VANCOMYCIN HCL 1,000 MG in NS 250 ML IV ONE (19:00)
[2022-08-05] MEDS ORDERED: PIPERACILLIN/TAZO 3.375 GM in NS 50 ML IV ONE (19:00)
[2022-08-05] MEDS ORDERED: VANCOMYCIN HCL 1000 MG/VIAL IV ONE (19:15)
[2022-08-05] MEDS ORDERED: PIPERACILLIN/TAZOBACTAM 3.375 GM/VIAL (ZOSYN) IV ONE (19:15)
[2022-08-05] MEDS ORDERED: IBUPROFEN 800 MG TABLET PO ONE (20:15)
[2022-08-05] MEDS ORDERED: NOREPINEPHRINE BITARTRATE 4 MG in NS 246 ML IV ONE (21:15)
[2022-08-05] MEDS ORDERED: NOREPINEPHRINE 4 MG/4 ML VIAL IV ONE (21:21)
[2022-08-05] MEDS ORDERED: CRAN250C GT (22:10)
[2022-08-05] MEDS ORDERED: ACET-2051 GT (22:10)
[2022-08-05] MEDS ORDERED: CHLO473M5 PO (22:10)
[2022-08-05] MEDS ORDERED: METO-442 GT (22:10)
[2022-08-05] MEDS ORDERED: AMIN30LI2 GT (22:10)
[2022-08-05] MEDS ORDERED: SENN8.6T19 PO (22:10)
[2022-08-05] MEDS ORDERED: IPRA4AER INH (22:10)
[2022-08-05] MEDS ORDERED: DOCU-144 GT (22:10)
[2022-08-05] MEDS ORDERED: MELA1TAB29 GT (22:10)
[2022-08-05 22:15] LABS: CLARITY/URINE HAZY (CLEAR); COLOR,URINE ORANGE (YELLOW)
[2022-08-05 22:16] LABS: BACTERIA,URINE MODERATE /HPF (None Seen); WBC,URINE >100 /HPF (0-3)
[2022-08-05 22:17] LABS: MUCUS,URINE 1+ /LPF (None Seen)
[2022-08-06] VITALS (11 sets, daily range): BP systolic 96–122
[2022-08-06] MEDS ORDERED: cefTRIAXone 1 GM IVPB PREMIX 50 ML IV SCH
[2022-08-06] MEDS ORDERED: ONDANSETRON HCL 4 MG/2 ML VIAL IVP PRN
[2022-08-06] MEDS ORDERED: NALOXONE HCL 0.4 MG/ML AMP (NARCAN) IVP PRN ×2
[2022-08-06] MEDS ORDERED: HYDROcodone/ACETAMIN 5-325 MG TAB (NORCO/ VICODIN) GT PRN
[2022-08-06] MEDS ORDERED: NOREPINEPHRINE 4 MG/4 ML VIAL IV ONE ×2 (01:20→07:41)
[2022-08-06] MEDS: NOREPINEPHRINE BITARTRATE 4 MG in NS 246 ML IV PRN ×2 (01:20→08:23)
[2022-08-06] MEDS: D5/0.45 NS 1,000 ML IV SCH ×2 (01:39→07:59)
[2022-08-06] MEDS ORDERED: ACETAMINOPHEN 325 MG TABLET GT PRN (06:30)
[2022-08-06] MEDS ORDERED: NS 500 ML IV ONE (06:30)
[2022-08-06] MEDS: ACETAMINOPHEN 325 MG TABLET GT PRN (07:00)
[2022-08-06] MEDS ORDERED: MORPHINE 2 MG/ML INJ. SYRINGE IVP ONE (08:00)
[2022-08-06] MEDS ORDERED: PIPERACILLIN/TAZO 3.375/DEX-IS 50 ML IV SCH (08:45)
[2022-08-06] MEDS ORDERED: CRANBERRY EXTRACT GT SCH (09:00)
[2022-08-06] MEDS ORDERED: NON-FORMULARY MEDICATION (Amino Acids/Protein Hydrolys (Pro-Stat Liquid) 30 ML) GT SCH (09:00)
[2022-08-06] MEDS ORDERED: METOPROLOL TARTRATE 50 MG TABLET GT SCH (09:00)
[2022-08-06] MEDS ORDERED: IPRATROPIUM/ALBUTEROL SULFATE 3 ML AMPUL.NEB (DUONEB) INH PRN (09:45)
[2022-08-06] MEDS ORDERED: MELATONIN 3 MG TABLET GT PRN (09:45)
[2022-08-06] MEDS: PIPERACILLIN/TAZO 3.375/DEX-IS 50 ML IV SCH ×3 (10:02→22:09)
[2022-08-06] MEDS ORDERED: PIPERACILLIN/TAZOBACTAM 3.375 GM/VIAL (ZOSYN) IV ONE (10:07)
[2022-08-06] MEDS: VANCOMYCIN HCL 500 MG in NS 100 ML IV SCH ×2 (10:11→22:09)
[2022-08-06] MEDS: NACL 0.9% 1,000 ML IV SCH ×2 (10:11→18:04)
[2022-08-06] MEDS: SENNOSIDES 8.6 MG TABLET PO SCH (10:12)
[2022-08-06] MEDS: MULTIVITAMINS TAB 1 TABLET GT SCH (10:12)
[2022-08-06] MEDS: ASCORBIC ACID 500 MG TABLET GT SCH (10:13)
[2022-08-06 11:56] LABS: HEMATOCRIT 35.9 % (36-54); HEMOGLOBIN 12.2 g/dL (14.0-18.0); MEAN CORPUSCULAR HEMOGLOBIN 32 pg (27-31); MEAN CORPUSCULAR HGB CONC 34 % (32-36); MEAN CORPUSCULAR VOLUME 95 fL (79.0-98.0); PLATELET COUNT (AUTO) 83 K/uL (130-430); RED CELL DISTRIBUTION WIDTH 12.5 % (9.0-15.0)
[2022-08-06 12:02] LABS: RED BLOOD CELL COUNT(AUTO) 3.78 MIL/uL (4.2-6.2); WHITE BLOOD COUNT (AUTO) 19.2 K/uL (4.8-10.8)
[2022-08-06 12:07] LABS: ERYTHROCYTE SEDIMENTATION RATE 14 MM/HR (0-15)
[2022-08-06 12:09] LABS: ALBUMIN 2.3 g/dL (3.4-4.8); C-REACTIVE PROTEIN QUANT 41.6 mg/dL (0-0.5); CALCIUM 7.8 mg/dL (8.4-11.0); CREATININE 1.19 mg/dL (0.55-1.30); TOTAL BILIRUBIN 2.8 mg/dL (0.0-1.0)
[2022-08-06 12:36] LABS: BAND % (MANUAL) 18 % (0-6); BASOPHILS % (MANUAL) 0 % (0-2); EOSINOPHILS % (MANUAL) 0 % (0-7); LYMPHOCYTES % (MANUAL) 3 % (20-46); METAMYELOCYTES % 5 % (0-0); MONOCYTES % (MANUAL) 6 % (0-11)
[2022-08-06] MEDS: HYDROcodone/ACETAMIN 10-325 MG TAB GT PRN (15:06)
[2022-08-07] VITALS (14 sets, daily range): BP systolic 103–122
[2022-08-07] MEDS: PIPERACILLIN/TAZO 3.375/DEX-IS 50 ML IV SCH ×2 (03:14→10:11)
[2022-08-07 05:05] LABS: EOSINOPHILS # (AUTO) 0.3 K/uL (0.0-0.4); EOSINOPHILS % (AUTO) 1.6 % (0.0-4.0); HEMATOCRIT 36.6 % (36-54); HEMOGLOBIN 12.5 g/dL (14.0-18.0); LYMPHOCYTES # (AUTO) 0.6 K/uL (1.0-5.5); LYMPHOCYTES % (AUTO) 3.7 % (20.5-51.5); MEAN CORPUSCULAR HEMOGLOBIN 32 pg (27-31); MEAN CORPUSCULAR HGB CONC 34 % (32-36); MEAN CORPUSCULAR VOLUME 95 fL (79.0-98.0); MONOCYTES # (AUTO) 0.6 K/uL (0.0-1.0); MONOCYTES % (AUTO) 3.7 % (1.7-9.3); NEUTROPHILS # (AUTO) 14.5 K/uL (1.8-7.7); PLATELET COUNT (AUTO) 67 K/uL (130-430); RED BLOOD CELL COUNT(AUTO) 3.86 MIL/uL (4.2-6.2); RED CELL DISTRIBUTION WIDTH 12.7 % (9.0-15.0)
[2022-08-07 05:48] LABS: ALBUMIN 2.3 g/dL (3.4-4.8); C-REACTIVE PROTEIN QUANT 47.5 mg/dL (0-0.5); CALCIUM 7.8 mg/dL (8.4-11.0); CREATININE 0.94 mg/dL (0.55-1.30); PHOSPHORUS 2.3 mg/dL (2.7-4.5)
[2022-08-07 08:06] LABS: ERYTHROCYTE SEDIMENTATION RATE 41 MM/HR (0-15)
[2022-08-07] MEDS ORDERED: KCL 20 mEq in 100 mL (PREMIX) 100 ML IV ONE (09:00)
[2022-08-07] MEDS ORDERED: POTASSIUM CHLORIDE 20 MEQ/PKT PACKET PO ONE (09:00)
[2022-08-07] MEDS: VANCOMYCIN HCL 500 MG in NS 100 ML IV SCH ×2 (10:12→21:16)
[2022-08-07] MEDS: ASCORBIC ACID 500 MG TABLET GT SCH (10:13)
[2022-08-07] MEDS: MULTIVITAMINS TAB 1 TABLET GT SCH (10:13)
[2022-08-07] MEDS: SENNOSIDES 8.6 MG TABLET PO SCH (10:13)
[2022-08-07] MEDS: NACL 0.9% 1,000 ML IV SCH ×2 (10:16→14:52)
[2022-08-07] MEDS: HYDROcodone/ACETAMIN 10-325 MG TAB GT PRN (10:52)
[2022-08-07] MEDS ORDERED: NA PHOS 15 MM in NS 250 ML IV ONE (11:00)
[2022-08-07] MEDS: MEROPENEM 1 GM IVPB PREMIX 50 ML IV SCH ×2 (14:51→21:17)
[2022-08-07] MEDS: ACETAMINOPHEN 325 MG TABLET GT PRN (15:16)
[2022-08-07] MEDS: MUPIROCIN 2% TOPICAL OINTMENT 22 GM NS SCH (21:33)
[2022-08-08 00:28] VITALS: BP_SYST 113
[2022-08-08] MEDS: MEROPENEM 1 GM IVPB PREMIX 50 ML IV SCH ×3 (05:41→21:53)
[2022-08-08 05:52] LABS: BASOPHILS % (AUTO) 0.1 % (0.0-2.0); EOSINOPHILS % (AUTO) 0.3 % (0.0-4.0); HEMATOCRIT 35.3 % (36-54); HEMOGLOBIN 12.3 g/dL (14.0-18.0); LYMPHOCYTES # (AUTO) 0.8 K/uL (1.0-5.5); LYMPHOCYTES % (AUTO) 10.7 % (20.5-51.5); MEAN CORPUSCULAR HEMOGLOBIN 33 pg (27-31); MEAN CORPUSCULAR HGB CONC 35 % (32-36); MEAN CORPUSCULAR VOLUME 94 fL (79.0-98.0); MONOCYTES # (AUTO) 0.5 K/uL (0.0-1.0); NEUTROPHILS % (AUTO) 81.9 % (40.0-70.0); PLATELET COUNT (AUTO) 52 K/uL (130-430); RED BLOOD CELL COUNT(AUTO) 3.77 MIL/uL (4.2-6.2); RED CELL DISTRIBUTION WIDTH 12.7 % (9.0-15.0); WHITE BLOOD COUNT (AUTO) 7.3 K/uL (4.8-10.8)
[2022-08-08 07:11] LABS: CALCIUM 7.9 mg/dL (8.4-11.0); CREATININE 0.71 mg/dL (0.55-1.30); TOTAL BILIRUBIN 1.7 mg/dL (0.0-1.0)
[2022-08-08 07:40] LABS: ERYTHROCYTE SEDIMENTATION RATE 55 MM/HR (0-15)
[2022-08-08 08:41] LABS: C-REACTIVE PROTEIN QUANT 18.2 mg/dL (0-0.5)
[2022-08-08] MEDS: MULTIVITAMINS TAB 1 TABLET GT SCH (10:17)
[2022-08-08] MEDS: ASCORBIC ACID 500 MG TABLET GT SCH (10:17)
[2022-08-08] MEDS: SENNOSIDES 8.6 MG TABLET PO SCH (10:20)
[2022-08-08] MEDS: MUPIROCIN 2% TOPICAL OINTMENT 22 GM NS SCH ×2 (10:20→21:51)
[2022-08-08] MEDS: NACL 0.9% 1,000 ML IV SCH ×3 (10:54→21:51)
[2022-08-08] MEDS: VANCOMYCIN HCL 500 MG in NS 100 ML IV SCH ×2 (10:55→21:52)
[2022-08-08 11:20] VITALS: BP_SYST 107
[2022-08-08 15:16] VITALS: BP_SYST 116
[2022-08-08] MEDS ORDERED: POTASSIUM CHLORIDE 40 MEQ in D5W 250 ML IV ONE (16:00)
[2022-08-08 20:14] VITALS: BP_SYST 120
[2022-08-08 20:19] VITALS: BP_SYST 127
[2022-08-09 00:21] VITALS: BP_SYST 125
[2022-08-09] MEDS: MEROPENEM 1 GM IVPB PREMIX 50 ML IV SCH (05:26)
[2022-08-09] MEDS: NACL 0.9% 1,000 ML IV SCH ×2 (05:27→16:44)
[2022-08-09 07:43] VITALS: BP_SYST 125
[2022-08-09 08:04] VITALS: BP_SYST 122
[2022-08-09] MEDS: SENNOSIDES 8.6 MG TABLET PO SCH (09:10)
[2022-08-09] MEDS: MULTIVITAMINS TAB 1 TABLET GT SCH (09:11)
[2022-08-09] MEDS: ASCORBIC ACID 500 MG TABLET GT SCH (09:12)
[2022-08-09] MEDS: MUPIROCIN 2% TOPICAL OINTMENT 22 GM NS SCH ×2 (09:14→21:33)
[2022-08-09] MEDS: VANCOMYCIN HCL 500 MG in NS 100 ML IV SCH (09:15)
[2022-08-09 11:21] VITALS: BP_SYST 121
[2022-08-09 11:56] LABS: BASOPHILS % (AUTO) 0.2 % (0.0-2.0); EOSINOPHILS # (AUTO) 0.2 K/uL (0.0-0.4); EOSINOPHILS % (AUTO) 3.1 % (0.0-4.0); HEMATOCRIT 39.1 % (36-54); HEMOGLOBIN 13.3 g/dL (14.0-18.0); LYMPHOCYTES # (AUTO) 0.9 K/uL (1.0-5.5); LYMPHOCYTES % (AUTO) 16.5 % (20.5-51.5); MEAN CORPUSCULAR HEMOGLOBIN 32 pg (27-31); MEAN CORPUSCULAR HGB CONC 34 % (32-36); MEAN CORPUSCULAR VOLUME 94 fL (79.0-98.0); MONOCYTES # (AUTO) 0.6 K/uL (0.0-1.0); MONOCYTES % (AUTO) 10.5 % (1.7-9.3); NEUTROPHILS # (AUTO) 3.7 K/uL (1.8-7.7); NEUTROPHILS % (AUTO) 69.7 % (40.0-70.0); PLATELET COUNT (AUTO) 66 K/uL (130-430); RED BLOOD CELL COUNT(AUTO) 4.16 MIL/uL (4.2-6.2); RED CELL DISTRIBUTION WIDTH 12.7 % (9.0-15.0); WHITE BLOOD COUNT (AUTO) 5.4 K/uL (4.8-10.8)
[2022-08-09 12:09] LABS: CALCIUM 8.1 mg/dL (8.4-11.0); CREATININE 0.47 mg/dL (0.55-1.30)
[2022-08-09] MEDS: PIPERACILLIN/TAZO 4.5GM/DEX-IS 100 ML IV SCH ×2 (14:03→21:34)
[2022-08-09] MEDS: KCL 20 mEq in 100 mL (PREMIX) 100 ML IV SCH ×2 (14:04→16:18)
[2022-08-09 15:22] VITALS: BP_SYST 122
[2022-08-09] MEDS: VANCOMYCIN HCL 750 MG in NS 250 ML IV SCH ×2 (17:04→23:52)
[2022-08-09 20:00] VITALS: BP_SYST 120
[2022-08-10 00:31] VITALS: BP_SYST 112
[2022-08-10] MEDS: NACL 0.9% 1,000 ML IV SCH (05:34)
[2022-08-10] MEDS: PIPERACILLIN/TAZO 4.5GM/DEX-IS 100 ML IV SCH ×3 (05:34→21:29)
[2022-08-10 05:48] LABS: BASOPHILS % (AUTO) 0.4 % (0.0-2.0); EOSINOPHILS # (AUTO) 0.2 K/uL (0.0-0.4); EOSINOPHILS % (AUTO) 3.3 % (0.0-4.0); HEMATOCRIT 40.4 % (36-54); HEMOGLOBIN 13.9 g/dL (14.0-18.0); LYMPHOCYTES # (AUTO) 1.2 K/uL (1.0-5.5); LYMPHOCYTES % (AUTO) 22.7 % (20.5-51.5); MEAN CORPUSCULAR HEMOGLOBIN 32 pg (27-31); MEAN CORPUSCULAR HGB CONC 34 % (32-36); MEAN CORPUSCULAR VOLUME 94 fL (79.0-98.0); MONOCYTES # (AUTO) 0.6 K/uL (0.0-1.0); MONOCYTES % (AUTO) 11.5 % (1.7-9.3); NEUTROPHILS # (AUTO) 3.3 K/uL (1.8-7.7); NEUTROPHILS % (AUTO) 62.1 % (40.0-70.0); PLATELET COUNT (AUTO) 87 K/uL (130-430); RED BLOOD CELL COUNT(AUTO) 4.29 MIL/uL (4.2-6.2); RED CELL DISTRIBUTION WIDTH 12.6 % (9.0-15.0); WHITE BLOOD COUNT (AUTO) 5.2 K/uL (4.8-10.8)
[2022-08-10 06:24] LABS: ALBUMIN 2.2 g/dL (3.4-4.8); C-REACTIVE PROTEIN QUANT 5.5 mg/dL (0-0.5); CALCIUM 8.4 mg/dL (8.4-11.0); CREATININE 0.56 mg/dL (0.55-1.30); TOTAL BILIRUBIN 1.5 mg/dL (0.0-1.0)
[2022-08-10 07:48] LABS: ERYTHROCYTE SEDIMENTATION RATE 48 MM/HR (0-15)
[2022-08-10 08:01] VITALS: BP_SYST 112
[2022-08-10] MEDS: VANCOMYCIN HCL 750 MG in NS 250 ML IV SCH ×2 (08:28→17:03)
[2022-08-10] MEDS: ASCORBIC ACID 500 MG TABLET GT SCH (08:29)
[2022-08-10] MEDS: MULTIVITAMINS TAB 1 TABLET GT SCH (08:30)
[2022-08-10] MEDS: MUPIROCIN 2% TOPICAL OINTMENT 22 GM NS SCH ×2 (08:31→21:29)
[2022-08-10] MEDS: SENNOSIDES 8.6 MG TABLET PO SCH (08:31)
[2022-08-10] MEDS ORDERED: POTASSIUM CHLORIDE 20 MEQ TAB.PRT.SR GT ONE (10:30)
[2022-08-10 12:00] VITALS: BP_SYST 145
[2022-08-10 16:51] VITALS: BP_SYST 143
[2022-08-10 20:00] VITALS: BP_SYST 119
[2022-08-11] VITALS: BP_SYST 123
[2022-08-11] MEDS: VANCOMYCIN HCL 750 MG in NS 250 ML IV SCH ×3 (00:16→16:29)
[2022-08-11] MEDS: PIPERACILLIN/TAZO 4.5GM/DEX-IS 100 ML IV SCH ×3 (05:50→22:02)
[2022-08-11 06:25] LABS: BASOPHILS % (AUTO) 0.3 % (0.0-2.0); EOSINOPHILS # (AUTO) 0.2 K/uL (0.0-0.4); EOSINOPHILS % (AUTO) 4.1 % (0.0-4.0); HEMOGLOBIN 13.6 g/dL (14.0-18.0); LYMPHOCYTES # (AUTO) 1.2 K/uL (1.0-5.5); LYMPHOCYTES % (AUTO) 21.1 % (20.5-51.5); MEAN CORPUSCULAR HEMOGLOBIN 32 pg (27-31); MEAN CORPUSCULAR HGB CONC 34 % (32-36); MEAN CORPUSCULAR VOLUME 94 fL (79.0-98.0); MONOCYTES # (AUTO) 0.7 K/uL (0.0-1.0); NEUTROPHILS # (AUTO) 3.5 K/uL (1.8-7.7); NEUTROPHILS % (AUTO) 62.5 % (40.0-70.0); PLATELET COUNT (AUTO) 118 K/uL (130-430); RED BLOOD CELL COUNT(AUTO) 4.25 MIL/uL (4.2-6.2); RED CELL DISTRIBUTION WIDTH 12.6 % (9.0-15.0); WHITE BLOOD COUNT (AUTO) 5.5 K/uL (4.8-10.8)
[2022-08-11 06:46] LABS: C-REACTIVE PROTEIN QUANT 3.1 mg/dL (0-0.5); CALCIUM 8.5 mg/dL (8.4-11.0); CREATININE 0.51 mg/dL (0.55-1.30)
[2022-08-11 09:50] LABS: ERYTHROCYTE SEDIMENTATION RATE 48 MM/HR (0-15)
[2022-08-11] MEDS: MULTIVITAMINS TAB 1 TABLET GT SCH (09:53)
[2022-08-11] MEDS: SENNOSIDES 8.6 MG TABLET PO SCH (09:54)
[2022-08-11] MEDS: ASCORBIC ACID 500 MG TABLET GT SCH (09:54)
[2022-08-11] MEDS: MUPIROCIN 2% TOPICAL OINTMENT 22 GM NS SCH ×2 (10:18→22:09)
[2022-08-11 11:19] VITALS: BP_SYST 91
[2022-08-11 13:44] VITALS: BP_SYST 91
[2022-08-11 15:26] VITALS: BP_SYST 100
[2022-08-11 18:56] VITALS: BP_SYST 100
[2022-08-11 20:00] VITALS: BP_SYST 114
[2022-08-12 00:01] VITALS: BP_SYST 113
[2022-08-12] MEDS: VANCOMYCIN HCL 750 MG in NS 250 ML IV SCH ×3 (03:42→17:00)
[2022-08-12 05:06] LABS: BASOPHILS % (AUTO) 0.4 % (0.0-2.0); EOSINOPHILS # (AUTO) 0.2 K/uL (0.0-0.4); EOSINOPHILS % (AUTO) 3.3 % (0.0-4.0); HEMATOCRIT 40.5 % (36-54); HEMOGLOBIN 13.8 g/dL (14.0-18.0); LYMPHOCYTES # (AUTO) 1.3 K/uL (1.0-5.5); LYMPHOCYTES % (AUTO) 22.4 % (20.5-51.5); MEAN CORPUSCULAR HEMOGLOBIN 32 pg (27-31); MEAN CORPUSCULAR HGB CONC 34 % (32-36); MEAN CORPUSCULAR VOLUME 95 fL (79.0-98.0); MONOCYTES # (AUTO) 0.6 K/uL (0.0-1.0); MONOCYTES % (AUTO) 10.1 % (1.7-9.3); NEUTROPHILS # (AUTO) 3.7 K/uL (1.8-7.7); NEUTROPHILS % (AUTO) 63.8 % (40.0-70.0); PLATELET COUNT (AUTO) 166 K/uL (130-430); RED BLOOD CELL COUNT(AUTO) 4.28 MIL/uL (4.2-6.2); RED CELL DISTRIBUTION WIDTH 12.4 % (9.0-15.0); WHITE BLOOD COUNT (AUTO) 5.8 K/uL (4.8-10.8)
[2022-08-12 05:18] LABS: C-REACTIVE PROTEIN QUANT 2.1 mg/dL (0-0.5); CALCIUM 8.4 mg/dL (8.4-11.0); CREATININE 0.58 mg/dL (0.55-1.30)
[2022-08-12] MEDS: PIPERACILLIN/TAZO 4.5GM/DEX-IS 100 ML IV SCH ×3 (06:43→21:22)
[2022-08-12 07:54] LABS: ERYTHROCYTE SEDIMENTATION RATE 45 MM/HR (0-15)
[2022-08-12] MEDS: SENNOSIDES 8.6 MG TABLET PO SCH (08:51)
[2022-08-12] MEDS: MULTIVITAMINS TAB 1 TABLET GT SCH (08:51)
[2022-08-12] MEDS: ASCORBIC ACID 500 MG TABLET GT SCH (08:51)
[2022-08-12] MEDS: MUPIROCIN 2% TOPICAL OINTMENT 22 GM NS SCH (08:55)
[2022-08-12 10:53] VITALS: BP_SYST 99
[2022-08-12 11:45] VITALS: BP_SYST 95
[2022-08-12 16:00] VITALS: BP_SYST 93
[2022-08-12 20:00] VITALS: BP_SYST 93
[2022-08-13] VITALS: BP_SYST 124
[2022-08-13] MEDS: VANCOMYCIN HCL 750 MG in NS 250 ML IV SCH ×3 (02:07→17:27)
[2022-08-13] MEDS: PIPERACILLIN/TAZO 4.5GM/DEX-IS 100 ML IV SCH ×3 (06:02→21:42)
[2022-08-13 06:30] LABS: BASOPHILS % (AUTO) 0.5 % (0.0-2.0); EOSINOPHILS # (AUTO) 0.2 K/uL (0.0-0.4); EOSINOPHILS % (AUTO) 3.8 % (0.0-4.0); HEMATOCRIT 41.5 % (36-54); HEMOGLOBIN 14.3 g/dL (14.0-18.0); LYMPHOCYTES # (AUTO) 1.3 K/uL (1.0-5.5); LYMPHOCYTES % (AUTO) 21.8 % (20.5-51.5); MEAN CORPUSCULAR HEMOGLOBIN 33 pg (27-31); MEAN CORPUSCULAR HGB CONC 35 % (32-36); MEAN CORPUSCULAR VOLUME 95 fL (79.0-98.0); MONOCYTES # (AUTO) 0.5 K/uL (0.0-1.0); NEUTROPHILS # (AUTO) 3.9 K/uL (1.8-7.7); NEUTROPHILS % (AUTO) 64.9 % (40.0-70.0); PLATELET COUNT (AUTO) 216 K/uL (130-430); RED BLOOD CELL COUNT(AUTO) 4.38 MIL/uL (4.2-6.2); RED CELL DISTRIBUTION WIDTH 12.7 % (9.0-15.0)
[2022-08-13 06:55] LABS: ERYTHROCYTE SEDIMENTATION RATE 58 MM/HR (0-15)
[2022-08-13 06:56] LABS: ALBUMIN 2.8 g/dL (3.4-4.8); C-REACTIVE PROTEIN QUANT 1.3 mg/dL (0-0.5); CALCIUM 8.9 mg/dL (8.4-11.0); CREATININE 0.52 mg/dL (0.55-1.30)
[2022-08-13 08:00] VITALS: BP_SYST 91
[2022-08-13] MEDS: SENNOSIDES 8.6 MG TABLET PO SCH (09:18)
[2022-08-13] MEDS: ASCORBIC ACID 500 MG TABLET GT SCH (09:18)
[2022-08-13] MEDS: MULTIVITAMINS TAB 1 TABLET GT SCH (09:19)
[2022-08-13 11:20] VITALS: BP_SYST 91
[2022-08-13 15:05] VITALS: BP_SYST 98
[2022-08-13 20:12] VITALS: BP_SYST 98
[2022-08-14 00:41] VITALS: BP_SYST 95
[2022-08-14] MEDS: VANCOMYCIN HCL 750 MG in NS 250 ML IV SCH ×3 (01:11→17:39)
[2022-08-14] MEDS: PIPERACILLIN/TAZO 4.5GM/DEX-IS 100 ML IV SCH ×2 (05:35→13:58)
[2022-08-14 06:04] LABS: BASOPHILS % (AUTO) 0.4 % (0.0-2.0); EOSINOPHILS # (AUTO) 0.2 K/uL (0.0-0.4); EOSINOPHILS % (AUTO) 3.1 % (0.0-4.0); HEMATOCRIT 41.5 % (36-54); HEMOGLOBIN 14.1 g/dL (14.0-18.0); LYMPHOCYTES # (AUTO) 1.6 K/uL (1.0-5.5); LYMPHOCYTES % (AUTO) 24.5 % (20.5-51.5); MEAN CORPUSCULAR HEMOGLOBIN 33 pg (27-31); MEAN CORPUSCULAR HGB CONC 34 % (32-36); MEAN CORPUSCULAR VOLUME 96 fL (79.0-98.0); MONOCYTES # (AUTO) 0.7 K/uL (0.0-1.0); MONOCYTES % (AUTO) 11.2 % (1.7-9.3); NEUTROPHILS # (AUTO) 3.9 K/uL (1.8-7.7); NEUTROPHILS % (AUTO) 60.8 % (40.0-70.0); PLATELET COUNT (AUTO) 233 K/uL (130-430); RED BLOOD CELL COUNT(AUTO) 4.34 MIL/uL (4.2-6.2); RED CELL DISTRIBUTION WIDTH 12.7 % (9.0-15.0); WHITE BLOOD COUNT (AUTO) 6.3 K/uL (4.8-10.8)
[2022-08-14 06:27] LABS: C-REACTIVE PROTEIN QUANT 0.9 mg/dL (0-0.5); CREATININE 0.69 mg/dL (0.55-1.30)
[2022-08-14 07:22] LABS: ERYTHROCYTE SEDIMENTATION RATE 56 MM/HR (0-15)
[2022-08-14 08:00] VITALS: BP_SYST 91
[2022-08-14] MEDS: MULTIVITAMINS TAB 1 TABLET GT SCH (09:49)
[2022-08-14] MEDS: SENNOSIDES 8.6 MG TABLET PO SCH (09:49)
[2022-08-14] MEDS: ASCORBIC ACID 500 MG TABLET GT SCH (09:50)
[2022-08-14] MEDS ORDERED: Vancomycin Per Pharmacy XX (10:43)
[2022-08-14] MEDS ORDERED: ROCPM1 IV (10:43)
[2022-08-14 11:21] VITALS: BP_SYST 90
[2022-08-14 15:16] VITALS: BP_SYST 93
[2022-08-14 16:13] VITALS: BP_SYST 93
== END 2022-08-14 19:39 | DRG 720 ==
LOC: SED 16:21 → SIC 21:34 → STU 08-07 12:17 → SMU 08-11 10:52
PROVIDERS: ADMIT Preventive Medicine Preventive Medicine/Occupational Environmental Medicine; ATTEND Preventive Medicine Preventive Medicine/Occupational Environmental Medicine
PROC: 05HM33Z Insertion of Infusion Device into Right Internal Jugular Vein, Percutaneous Approach (ICD-10-PCS; principal; 2022-08-05)
PROC: B543ZZA Ultrasonography of Right Jugular Veins, Guidance (ICD-10-PCS; 2022-08-05)
DX: A40.9 Streptococcal sepsis, unspecified (principal); J96.20 Acute and chronic respiratory failure, unspecified whether with hypoxia or hypercapnia; R65.21 Severe sepsis with septic shock; E43 Unspecified severe protein-calorie malnutrition; D69.6 Thrombocytopenia, unspecified; R53.2 Functional quadriplegia; E83.39 Other disorders of phosphorus metabolism; E88.09 Other disorders of plasma-protein metabolism, not elsewhere classified; D64.9 Anemia, unspecified; F20.9 Schizophrenia, unspecified; G47.00 Insomnia, unspecified; T83.038A Leakage of other urinary catheter, initial encounter; E87.6 Hypokalemia; E78.5 Hyperlipidemia, unspecified; R79.89 Other specified abnormal findings of blood chemistry; R13.10 Dysphagia, unspecified; Z20.822 Contact with and (suspected) exposure to COVID-19; E87.5 Hyperkalemia; N12 Tubulo-interstitial nephritis, not specified as acute or chronic; E80.6 Other disorders of bilirubin metabolism; N20.2 Calculus of kidney with calculus of ureter; B95.2 Enterococcus as the cause of diseases classified elsewhere; I10 Essential (primary) hypertension; Z87.820 Personal history of traumatic brain injury; Z88.8 Allergy status to other drugs, medicaments and biological substances; Z79.899 Other long term (current) drug therapy; Z93.1 Gastrostomy status; Z68.22 Body mass index [BMI] 22.0-22.9, adult; N39.0 Urinary tract infection, site not specified
CPT/HCPCS: 36415; 71045; 74018; 76376; 80048; 80053; 80061; 80202; 81000; 82550; 83605; 83735; 83880; 84100; 84484; 85007; 85025; 85027; 85610-TC; 85651-TC; 85730-TC; 86140; 87040; 87081; 87086; 87101; 87186-TC; 93005; 93306; 94760; 96365; 96368; 99291; G0378; J0696; J2185; J2270; J2405; J2543; J3370; J3480; J7050; J7060